=== PATIENT | female | born 1970 | race Caucasian/White ===

== ENCOUNTER 2018-03-14 18:55 | Observation (INO) | payer OTHER, SELFPAY ==
[2018-03-14 18:56] VITALS: BP 158/81; PULSE 87; RESP 18; TEMP 36.9; O2SAT 100; BMI 37.2
--- NOTE | 2018-03-14 19:27 | CT_ITS ---
STUDY: CT ABDOMEN AND PELVIS WITH CONTRAST REASON FOR EXAM: Female, 47 years old. Left upper quadrant pain. RADIATION DOSAGE (If Supplied By Facility): CTDIvol = ( 16.94 ) mGy, DLP = ( 1167.09 ) mGycm TECHNIQUE: Transaxial images were obtained from the dome of the diaphragm to the symphysis pubis with oral contrast. 100 ml of Isovue 300 contrast was administered. Sagittal and coronal images were reconstructed. Individualized dose optimization techniques were used for this CT. COMPARISON: None. FINDINGS: Mild bibasilar atelectatic versus chronic changes. Negative for major consolidation or pleural effusion. The visualized portions of the heart are within normal limits. Hepatomegaly versus Ar's lobe of the right liver. There are surgical clips in the gallbladder fossa consistent with a prior cholecystectomy. Nondistended common bile duct with out filling defect. Normal spleen. Normal pancreas. Normal bilateral adrenal glands. Normal right kidney. Normal left kidney. Food filled stomach. Normal small intestine. Diverticulosis of the colon without evidence of acute diverticulitis. The appendix is visualized and appears normal. Mild calcified plaque of the aorta. Normal inferior vena cava. Normal retroperitoneum. Normal urinary bladder. There is absence of the uterus consistent with a prior hysterectomy. Negative for pelvic mass or free fluid of the pelvis. Normal abdominal wall. Mild degenerative changes of the lumbar spine. CT/Abdomen/Pelvis WITH Contrast IMPRESSION: No acute abdominal or pelvic findings. Negative for evidence of bowel obstruction, bowel perforation or inflammatory bowel changes. Diverticulosis of the colon without evidence of acute diverticulitis. A normal appendix is identified. Normal kidneys bilaterally without hydronephrosis, renal or ureteral stones. Unremarkable urinary bladder. Status post hysterectomy with no pelvic mass or free fluid of the pelvis. Status post cholecystectomy with no dilatation of the bile ducts. Mild hepatomegaly primarily the right liver versus Ar's lobe, normal variation. Electronically Signed: Anusha Michelle MD at 21:40 EDT , Service support ,
[2018-03-14] MEDS: Morphine 4 MG/ML Syringe IV ×2 (19:36→22:07)
[2018-03-14] MEDS: 0.9% Normal Saline 1,000 ML 1000 ML IV (19:36)
[2018-03-14] MEDS: Ondansetron 4 MG/2 ML Vial IV (19:37)
[2018-03-14 19:38] LABS: Absolute Lymphocyte Count 4.36 X10^3/ul (0.83-4.51); Absolute Neutrophil Count 3.4 X10^3/uL (2.0-7.7); Basophil# 0.05 X10^3/uL; Basophil% 0.6 % (0-1); Eosinophil# 0.33 X10^3/uL; Eosinophils% 3.8 % (0-5); Hematocrit 41.2 % (37-47); Hemoglobin 14.5 g/dl (12.0-15.0); Lymphocyte # 4.36 X10^3/ul (4.0); Lymphocyte % 50.3 % (19-41); Mean Corp Hgb Conc 35.2 g/gl (32-36); Mean Corpuscular Hgb 32.1 pg (27.0-32.0); Mean Corpuscular Volume 91.2 fL (81-99); Mean Platelet Vol. 10.6 fl (6.2-12.0); Monocyte# 0.51 X10^3/uL; Monocyte% 5.9 % (0-10); Neutrophil % 39.2 % (47-70); Platelet Count 240 K/mm3 (150-450); RBC Distribution Width CV 12.9 % (11.6-14.6); RBC Distribution Width SD 42.5 fl (35.1-43.9); Red Blood Count 4.52 M/mm3 (4.2-5.4); White Blood Count 8.7 K/mm3 (4.4-11.0)
[2018-03-14 19:39] LABS: POSITIVE COUNT NO; POSITIVE DIFFERENTIAL NO; POSITIVE MORPHOLOGY NO
[2018-03-14 19:58] LABS: ALB/GLOB Ratio 0.9 RATIO (0.9-2.4); AST(SGOT) 16 U/L (15-37); Alanine Aminotransfer ALT/SGPT 32 U/L (13-56); Albumin, Serum 3.3 g/dL (3.2-5.0); Alkaline Phosphatase 110 U/L (45-117); Anion Gap 9 (5-15); BUN 13 mg/dL (7-18); BUN/Creat Ratio 18.1 RATIO (10-20); Calcium,Total 8.5 mg/dL (8.5-10.1); Chloride 103 mmol/L (98-107); Creatinine, Serum 0.72 mg/dL (0.55-1.02); EST Glomerular Filtration Rate 93 mL/min (>60); Est Glom Filt Rate - Afr Amer 112 mL/min (>60); Estimated Creatinine Clearance 80.76 ml/min; Globulin 3.8 g/dL (2.2-4.2); Glucose 284 mg/dL (74-106); Lipase 244 U/L (73-393); Potassium 3.8 mmol/L (3.5-5.1); Protein, Total 7.1 g/dL (6.4-8.2); Sodium Level 139 mmol/L (136-145)
[2018-03-14 21:00] LABS: Bacteria 0 SEEN /hpf (None Seen); Mucous, Urine 0 SEEN /hpf (<or=2+); Red Blood Cells-Urine 0 SEEN /hpf (0-5); White Blood Cells 0 SEEN /hpf (0-5)
[2018-03-14 21:03] LABS: Color, Urine Yellow (Yellow); Glucose, Dipstick 1000 mg/dl (Normal); Ketone-Dipstick Negative (Negative); Leukocyte Esterase-Dipstick Negative /ul (Negative); Nitrite-Dipstick Negative (Negative); Occult Blood-Urine Negative /ul (Negative); Protein-Dipstick Negative (Negative); Urine Bilirubin Dipstick Negative (Negative); Urine Clarity Clear (Clear); Urine Urobilinogen Normal (Normal)
[2018-03-14 21:12] LABS: Squamous Epithelial Cells - UA 0-5 SEEN /hpf (5-10)
--- NOTE | 2018-03-14 21:23 | ED.RN ---
notified MD of pt's pain. no new orders.
--- NOTE | 2018-03-14 22:01 | CT_ITS ---
STUDY: CTA CHEST REASON FOR EXAM: Female, 47 years old. Left upper quadrant/chest pain. RADIATION DOSAGE (If Supplied By Facility): CTDIvol = ( 14.62 ) mGy, DLP = ( 667.49 ) mGycm TECHNIQUE: The examination was performed with the intravenous administration of 100 ml of Isovue 370 contrast material. Post-processing of the angiographic images was performed, with multiplanar reformation and 3D reconstruction. Individualized dose optimization techniques were used for this CT. COMPARISON: None. FINDINGS: Normal enhancement of the main pulmonary artery and right and left pulmonary arteries. Normal enhancement of the bilateral peripheral pulmonary arteries. There is no demonstrated pulmonary embolism. Normal thoracic aorta and visualized great vessels. There is no demonstrated aortic dissection. Normal heart and pericardium. Negative for coronary calcifications. Shotty subcentimeter mediastinal and AP window lymph nodes. Shotty hilar lymph nodes. Patchy bibasilar small groundglass changes and increased multifocal linear/curvilinear interstitial opacities. Atelectatic changes in the costophrenic angle, left greater than right. Negative for substantial pleural effusion. Normal chest wall structures. There are degenerative changes of thoracic spine. Normal visualized upper abdomen. CT/CTA Chest W/WO Contrast IMPRESSION: NEGATIVE for pulmonary embolus. Negative for aortic aneurysm or dissection. Negative for coronary calcifications. Shotty subcentimeter mediastinal, AP window and hilar lymph nodes. Patchy bibasilar small groundglass changes with increased multifocal linear/curvilinear interstitial opacities, nonspecific. Atelectatic changes in the costophrenic angles, left greater than right. Negative for substantial pleural effusion. Electronically Signed: Anusha Michelle MD at 23:32 EDT , Service support ,
[2018-03-14 22:07] VITALS: BP 125/79; PULSE 71; RESP 18; O2SAT 98
[2018-03-14] MEDS: 0.9% Normal Saline 1,000 ML 999 ML IV (22:39)
[2018-03-15] MEDS: Ceftriaxone 1 GM/50 ML BAG IV (00:07)
--- NOTE | 2018-03-15 00:17 | PCM.HP.STD ---
Problem List (1) GERD (gastroesophageal reflux disease) Status: Chronic (2) Irritable bowel syndrome Status: Chronic (3) Fibromyalgia Status: Chronic (4) Type 2 diabetes mellitus Status: Chronic History of Present Illness Date of Admission: 03/15/18 Chief Complaint: Left lateral chest pain. The patient is a 47 year old F with past medical history as mentioned above presented to the emergency room because of left lateral chest pain. Her symptoms started around 2 weeks ago with left lateral chest pain, constant pain, dull aching pain when resting, started to come sharp pain on moving or taking a deep breath, 7 out of 10 in severity, goes around her back on the left side, aggravated by taking a deep breath or moving, somewhat relieved by staying still and without other significant associated symptoms. She reported chronic smoking cough without sputum production. She denies fever chills. She denies anterior chest pain, dizziness or lightheadedness. She denied shortness of breath but she cannot take a deep breath because of this pain. She denied mechanical fall or trauma. She denies skin rash or sick contacts. She had a history of shingles more than 10 years ago just above her left breast. In the emergency department, her vital signs were stable. Routine blood work was unremarkable except for glucose of 284. LFT and lipase were normal. Urinalysis showed no evidence of acute cystitis. CT scan abdomen and pelvis with contrast showed no significant acute intra-abdominal pathology, chronic findings reviewed. CTA chest showed no evidence of PE or dissection, revealed bilateral basilar small groundglass changes likely due to atelectasis, doubt pneumonia. She received a couple of doses of IV morphine in the ER without improvement and she received IV Rocephin and Zithromax for presumed pneumonia. She is being admitted for intractable left lateral pleuritic chest pain of uncertain etiology. Past Medical History Past Medical History (Chronic Problems): Chronic Problems GERD (gastroesophageal reflux disease) (Chronic) Irritable bowel syndrome (Chronic) Fibromyalgia (Chronic) Type 2 diabetes mellitus (Chronic) Allergies magnesium salicylate Allergy (Verified 03/14/18 18:58) Swelling Home Medications: Ambulatory Orders Medication Instructions Recorded NK [NK] 03/14/18 Surgical History: cholecystectomy, herniorrhaphy, hysterectomy, - - section, surgery for carpal tunnel syndrome. 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 Denies: Chills, Fever, Weakness Eyes: Denies: Blurred vision, Double vision, Drainage, Redness HEENT: Denies: Difficulty Hearing, Ear Pain, Eye Pain, Nasal Congestion, Sore Throat Cardiovascular: Reports: - - Left lateral chest pain.. Denies: Chest Pressure, Chest Tightness, Heaviness, Light Headedness, Orthopnea, Palpitations, Syncope Respiratory: Reports: Cough, Pleuritic Pain. Denies: Shortness of Breath, Sputum production, Wheezing Gastrointestinal: Denies: Abdominal Pain, Constipation, Diarrhea, Nausea, Vomiting Genitourinary: Denies: Dysuria, Frequency, Hematuria Musculoskeletal: Denies: Arm Pain, Back Pain, Foot Pain Skin: Denies: Dryness, Rash Neurological: Denies: Balance problems, Double vision, Change in Speech, Slurred speech, Confusion, Focal weakness, Headaches, Incoordination, Numbness Psychiatric: Denies: Anxiety, Depression Endocrine: Denies: Change in Body Habitus, Polydipsia VTE Information - Inpt Only VTE Present on Admission: No VTE Mechan Device Prophylaxis: None VTE Pharm Prophylaxis ordered?: No - Physical Exam General: Alert, Oriented x3, Cooperative, - - She is in moderate pain. HEENT: Atraumatic, PERRLA, EOMI, Normocephalic Oral: Moist Mucosa, No Gingival or Mucosal Lesions/ Ulcerations Neck: Supple, No JVD, Trachea Midline, Thyroid Normal Size and Texture Lungs: Clear to auscultation, No rhonchi, No wheeze, No rales Cardiovascular: Regular rate, Regular Rhythm, Normal S1, Normal S2, No murmurs, PMI Normal Abdomen: Bowel Sounds Present, Soft, Non Tender, Non-Distended, No Hepato-splenomegaly Extremities: No clubbing, No cyanosis, No edema Skin: No rashes, No breakdown, - - No skin rash her skin vesicles on left lateral chest. Musculoskeletal: - Neurological: Cranial nerves II-XII grossly intact, Motor Exam 5/5 strength throughout Psych/Mental Status: Normal Affect, Appropriate, Alert and oriented to time, place, person, mood and affect Vital Signs Temp Pulse Resp BP Pulse Ox 98.4 F 71 18 125/79 H 98 03/14/18 18:56 03/14/18 22:07 03/14/18 22:07 03/14/18 22:07 03/14/18 22:07 Oxygen Delivery Method Room Air Weight: 210 lb Body Mass Index (BMI) 37.2 Laboratory Tests Past 24 Hrs 03/14/18 03/14/18 03/14/18 19:30 19:30 20:50 WBC 8.7 RBC 4.52 Hgb 14.5 Hct 41.2 MCV 91.2 MCH 32.1 H MCHC 35.2 RDW 12.9 RDW Differential 42.5 Plt Count 240 MPV 10.6 Immature Gran % (Auto) 0.200 Neut % (Auto) 39.2 L Lymph % (Auto) 50.3 H [place] % (Auto) 5.9 Eos % (Auto) 3.8 Baso % (Auto) 0.6 Absolute Neuts (auto) 3.4 Absolute Lymphs (auto) 4.36 Total Counted Not Reportable Sodium 139 Potassium 3.8 Chloride 103 Carbon Dioxide 27.0 Anion Gap 9 BUN 13 Creatinine 0.72 Estim Creat Clear Calc 80.76 Est GFR (MDRD) Af Amer 112 Est GFR (MDRD) Non-Af 93 BUN/Creatinine Ratio 18.1 Glucose 284 H Calcium 8.5 Total Bilirubin 0.20 AST 16 ALT 32 Alkaline Phosphatase 110 Total Protein 7.1 Albumin 3.3 Globulin 3.8 Albumin/Globulin Ratio 0.9 Lipase 244 Urine Color Yellow Urine Clarity Clear Urine pH 7.0 Ur Specific [place] 1.010 Urine Protein Negative Urine Glucose (UA) 1000 H Urine Ketones Negative Urine Occult Blood Negative Urine Nitrite Negative Urine Bilirubin Negative Urine Urobilinogen Normal Ur Leukocyte Esterase Negative Urine RBC 0 SEEN Urine WBC 0 SEEN Ur Squamous Epith Cells 0-5 SEEN Urine Bacteria 0 SEEN Urine Mucus 0 SEEN Clinical Impression(s) from Imaging Studies Abdomen/Pelvis CT 03/14/18 19:27 IMPRESSION: No acute abdominal or pelvic findings. Negative for evidence of bowel obstruction, bowel perforation or inflammatory bowel changes. Diverticulosis of the colon without evidence of acute diverticulitis. A normal appendix is identified. Normal kidneys bilaterally without hydronephrosis, renal or ureteral stones. Unremarkable urinary bladder. Status post hysterectomy with no pelvic mass or free fluid of the pelvis. Status post cholecystectomy with no dilatation of the bile ducts. Mild hepatomegaly primarily the right liver versus Ar's lobe, normal variation. Electronically Signed: Anusha Michelle MD at 21:40 EDT , Service support , Chest CTA 03/14/18 22:01 IMPRESSION: NEGATIVE for pulmonary embolus. Negative for aortic aneurysm or dissection. Negative for coronary calcifications. Shotty subcentimeter mediastinal, AP window and hilar lymph nodes. Patchy bibasilar small groundglass changes with increased multifocal linear/curvilinear interstitial opacities, nonspecific. Atelectatic changes in the costophrenic angles, left greater than right. Negative for substantial pleural effusion. Electronically Signed: Anusha Michelle MD at 23:32 EDT , Service support , Assessment/Plan This is a 47-year-old female patient presented to the medicine because of left lateral pleuritic chest pain of 2 weeks duration of unclear etiology and she is being admitted for evaluation. #1 left lateral pleuritic chest pain: Unclear etiology. EKG revealed normal sinus rhythm without evidence of ischemic changes or cardiac arrhythmias. CTA chest and CT abdomen and pelvis reviewed as above. At this time, I doubt pneumonia. Routine blood work including LFT and lipase were unremarkable. She did have history of shingles above her left breast more than 10 years ago. At this time, she has no skin rash, no vesicles. Plan: Admit to [facility] for observation, IV fluids, IV Toradol, IV hydromorphone as needed, IV antiemetics, Tylenol as needed, repeat CBC, CMP and lipase tomorrow morning. #2 type 2 diabetes mellitus: She is not taking any medicine at home, trying diet controlled. Blood sugars 284. Plan: ADA diet, Accu-Cheks before meals at bedtime, sliding scale, hemoglobin A1c. #3 GERD/[place]'s esophagus: Start Pepcid IV twice daily. #4 fibromyalgia: Tylenol as needed, IV Toradol as above. #5 irritable bowel syndrome: Stable, no symptoms. #6 DVT prophylaxis: Low risk patient, no prophylaxis indicated, ambulate. This note was generated with [employer] software. It may contain incorrect words, spelling, and punctuation that were not noted in checking the note before signing. Code Visit OBSV E&M: 29746 Initial observation care L3
--- NOTE | 2018-03-15 00:21 | HP.PCM_ITS ---
Problem List (1) GERD (gastroesophageal reflux disease) Status: Chronic (2) Irritable bowel syndrome Status: Chronic (3) Fibromyalgia Status: Chronic (4) Type 2 diabetes mellitus Status: Chronic History of Present Illness Date of Admission: 03/15/18 Chief Complaint: Left lateral chest pain. The patient is a 47 year old F with past medical history as mentioned above presented to the emergency room because of left lateral chest pain. Her symptoms started around 2 weeks ago with left lateral chest pain, constant pain , dull aching pain when resting, started to come sharp pain on moving or taking a deep breath, 7 out of 10 in severity, goes around her back on the left side, aggravated by taking a deep breath or moving, somewhat relieved by staying still and without other significant associated symptoms. She reported chronic smoking cough without sputum production. She denies fever chills. She denies anterior chest pain, dizziness or lightheadedness. She denied shortness of breath but she cannot take a deep breath because of this pain. She denied mechanical fall or trauma. She denies skin rash or sick contacts. She had a history of shingles more than 10 years ago just above her left breast. In the emergency department, her vital signs were stable. Routine blood work was unremarkable except for glucose of 284. LFT and lipase were normal. Urinalysis showed no evidence of acute cystitis. CT scan abdomen and pelvis with contrast showed no significant acute intra-abdominal pathology, chronic findings reviewed. CTA chest showed no evidence of PE or dissection, revealed bilateral basilar small groundglass changes likely due to atelectasis, doubt pneumonia. She received a couple of doses of IV morphine in the ER without improvement and she received IV Rocephin and Zithromax for presumed pneumonia. She is being admitted for intractable left lateral pleuritic chest pain of uncertain etiology. Past Medical History Past Medical History (Chronic Problems): Chronic Problems GERD (gastroesophageal reflux disease) (Chronic) Irritable bowel syndrome (Chronic) Fibromyalgia (Chronic) Type 2 diabetes mellitus (Chronic) Allergies magnesium salicylate Allergy (Verified 03/14/18 18:58) Swelling Home Medications: Ambulatory Orders Medication Instructions Recorded NK [NK] 03/14/18 Surgical History: cholecystectomy, herniorrhaphy, hysterectomy, - - section, surgery for carpal tunnel syndrome. 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 Denies: Chills, Fever, Weakness Eyes: Denies: Blurred vision, Double vision, Drainage, Redness HEENT: Denies: Difficulty Hearing, Ear Pain, Eye Pain, Nasal Congestion, Sore Throat Cardiovascular: Reports: - - Left lateral chest pain.. Denies: Chest Pressure, Chest Tightness, Heaviness, Light Headedness, Orthopnea, Palpitations, Syncope Respiratory: Reports: Cough, Pleuritic Pain. Denies: Shortness of Breath, Sputum production, Wheezing Gastrointestinal: Denies: Abdominal Pain, Constipation, Diarrhea, Nausea, Vomiting Genitourinary: Denies: Dysuria, Frequency, Hematuria Musculoskeletal: Denies: Arm Pain, Back Pain, Foot Pain Skin: Denies: Dryness, Rash Neurological: Denies: Balance problems, Double vision, Change in Speech, Slurred speech, Confusion, Focal weakness, Headaches, Incoordination, Numbness Psychiatric: Denies: Anxiety, Depression Endocrine: Denies: Change in Body Habitus, Polydipsia VTE Information - Inpt Only VTE Present on Admission: No VTE Mechan Device Prophylaxis: None VTE Pharm Prophylaxis ordered?: No - Physical Exam General: Alert, Oriented x3, Cooperative, - - She is in moderate pain. HEENT: Atraumatic, PERRLA, EOMI, Normocephalic Oral: Moist Mucosa, No Gingival or Mucosal Lesions/ Ulcerations Neck: Supple, No JVD, Trachea Midline, Thyroid Normal Size and Texture Lungs: Clear to auscultation, No rhonchi, No wheeze, No rales Cardiovascular: Regular rate, Regular Rhythm, Normal S1, Normal S2, No murmurs, PMI Normal Abdomen: Bowel Sounds Present, Soft, Non Tender, Non-Distended, No Hepato- splenomegaly Extremities: No clubbing, No cyanosis, No edema Skin: No rashes, No breakdown, - - No skin rash her skin vesicles on left lateral chest. Musculoskeletal: - Neurological: Cranial nerves II-XII grossly intact, Motor Exam 5/5 strength throughout Psych/Mental Status: Normal Affect, Appropriate, Alert and oriented to time, place, person, mood and affect Vital Signs Temp Pulse Resp BP Pulse Ox 98.4 F 71 18 125/79 H 98 03/14/18 18:56 03/14/18 22:07 03/14/18 22:07 03/14/18 22:07 03/14/18 22:07 Oxygen Delivery Method Room Air Weight: 210 lb Body Mass Index (BMI) 37.2 Laboratory Tests Past 24 Hrs 03/14/18 03/14/18 03/14/18 19:30 19:30 20:50 WBC 8.7 RBC 4.52 Hgb 14.5 Hct 41.2 MCV 91.2 MCH 32.1 H MCHC 35.2 RDW 12.9 RDW Differential 42.5 Plt Count 240 MPV 10.6 Immature Gran % (Auto) 0.200 Neut % (Auto) 39.2 L Lymph % (Auto) 50.3 H [place] % (Auto) 5.9 Eos % (Auto) 3.8 Baso % (Auto) 0.6 Absolute Neuts (auto) 3.4 Absolute Lymphs (auto) 4.36 Total Counted Not Reportable Sodium 139 Potassium 3.8 Chloride 103 Carbon Dioxide 27.0 Anion Gap 9 BUN 13 Creatinine 0.72 Estim Creat Clear Calc 80.76 Est GFR (MDRD) Af Amer 112 Est GFR (MDRD) Non-Af 93 BUN/Creatinine Ratio 18.1 Glucose 284 H Calcium 8.5 Total Bilirubin 0.20 AST 16 ALT 32 Alkaline Phosphatase 110 Total Protein 7.1 Albumin 3.3 Globulin 3.8 Albumin/Globulin Ratio 0.9 Lipase 244 Urine Color Yellow Urine Clarity Clear Urine pH 7.0 Ur Specific [place] 1.010 Urine Protein Negative Urine Glucose (UA) 1000 H Urine Ketones Negative Urine Occult Blood Negative Urine Nitrite Negative Urine Bilirubin Negative Urine Urobilinogen Normal Ur Leukocyte Esterase Negative Urine RBC 0 SEEN Urine WBC 0 SEEN Ur Squamous Epith Cells 0-5 SEEN Urine Bacteria 0 SEEN Urine Mucus 0 SEEN Clinical Impression(s) from Imaging Studies Abdomen/Pelvis CT 03/14/18 19:27 IMPRESSION: No acute abdominal or pelvic findings. Negative for evidence of bowel obstruction, bowel perforation or inflammatory bowel changes. Diverticulosis of the colon without evidence of acute diverticulitis. A normal appendix is identified. Normal kidneys bilaterally without hydronephrosis, renal or ureteral stones. Unremarkable urinary bladder. Status post hysterectomy with no pelvic mass or free fluid of the pelvis. Status post cholecystectomy with no dilatation of the bile ducts. Mild hepatomegaly primarily the right liver versus Ar's lobe, normal variation. Electronically Signed: Anusha Michelle MD at 21:40 EDT , Service support , Chest CTA 03/14/18 22:01 IMPRESSION: NEGATIVE for pulmonary embolus. Negative for aortic aneurysm or dissection. Negative for coronary calcifications. Shotty subcentimeter mediastinal, AP window and hilar lymph nodes. Patchy bibasilar small groundglass changes with increased multifocal linear/curvilinear interstitial opacities, nonspecific. Atelectatic changes in the costophrenic angles, left greater than right. Negative for substantial pleural effusion. Electronically Signed: Anusha Michelle MD at 23:32 EDT , Service support , Assessment/Plan This is a 47-year-old female patient presented to the medicine because of left lateral pleuritic chest pain of 2 weeks duration of unclear etiology and she is being admitted for evaluation. #1 left lateral pleuritic chest pain: Unclear etiology. EKG revealed normal sinus rhythm without evidence of ischemic changes or cardiac arrhythmias. CTA chest and CT abdomen and pelvis reviewed as above. At this time, I doubt pneumonia. Routine blood work including LFT and lipase were unremarkable. She did have history of shingles above her left breast more than 10 years ago. At this time, she has no skin rash, no vesicles. Plan: Admit to [facility] for observation, IV fluids, IV Toradol, IV hydromorphone as needed, IV antiemetics, Tylenol as needed, repeat CBC, CMP and lipase tomorrow morning. #2 type 2 diabetes mellitus: She is not taking any medicine at home, trying diet controlled. Blood sugars 284. Plan: ADA diet, Accu-Cheks before meals at bedtime, sliding scale, hemoglobin A1c. #3 GERD/[place]'s esophagus: Start Pepcid IV twice daily. #4 fibromyalgia: Tylenol as needed, IV Toradol as above. #5 irritable bowel syndrome: Stable, no symptoms. #6 DVT prophylaxis: Low risk patient, no prophylaxis indicated, ambulate. This note was generated with [employer] software. It may contain incorrect words, spelling, and punctuation that were not noted in checking the note before signing. Code Visit OBSV E&M: 79047 Initial observation care L3
--- NOTE | 2018-03-15 00:39 | ED.VISSUMM ---
- ER Visit Summary Date of Service: 03/15/18 Chief Complaint: Abdominal pain History of Present Illness: The patient is a 47 F who presents with left upper quadrant abdominal pain. This is been intermittent for the last 2 weeks. She describes as dull. However today it became more severe more constant. It is worse with palpation or deep inspiration or movement does radiate through to the back. No recent travel surgery or history of DVT or pulmonary embolism. She denies fevers vomiting diarrhea chest pain or shortness of breath. Physical Examination: Afebrile vitals are unremarkable Patient in no apparent distress Heart regular rate and rhythm Lungs clear Abdomen soft nondistended she has diffuse abdominal tenderness but is greatest in the left upper quadrant Test Results: CBC CMP lipase unremarkable. Urinalysis shows glucose otherwise normal. CT of the abdomen and pelvis shows no acute findings. CT of the chest shows shoddy mediastinal AP window and hilar lymphadenopathy as well as patchy bibasilar groundglass changes interstitial opacities and atelectatic changes. Emergency Department Course and Treatment: Given patient's reproducible abdominal pain initially felt this was likely due to an abdominal pathology. However she continued to complain of severe pain despite multiple doses of morphine with an unremarkable CT the abdomen cell consideration was given to lower lung pathology and a CTA of the chest was obtained which showed the findings above. Patient was treated for possible atypical pneumonia with IV Rocephin and azithromycin. Due to intractable pain she was discussed with the hospitalist and admitted. Treatment Plan: [] Disposition: Admit Impression: Intractable left upper quadrant pain Abnormal chest CT This note was generated with [employer] dictation software. It may contain incorrect words, spelling, and punctuation that were not noted in review of the chart prior to signing ED Disposition - Plan for ED Patient: Chief Complaint: Abd Pain
--- NOTE | 2018-03-15 00:42 | EKG12_ITS ---
Test Reason : ABD PAIN Blood Pressure : / mmHG Vent. Rate : 075 BPM Atrial Rate : 075 BPM P-R Int : 156 ms QRS Dur : 090 ms QT Int : 416 ms P-R-T Axes : 054 017 043 degrees QTc Int : 464 ms Normal sinus rhythm Normal ECG Confirmed by FREYA MIN, SIVA ([id number]), editor school photograph RENE HOLM ([id number]) on 03/20/2018 2:53:39 PM Referred By: ELOY Confirmed By:SIVA PILLAI MD
[2018-03-15 01:13] VITALS: BMI 38.5
[2018-03-15] MEDS: 0.9% Normal Saline 1,000 ML 75 ML IV (01:40)
[2018-03-15] MEDS: HYDROmorphone 0.5 MG/0.5 ML SYRINGE IV ×4 (01:41→13:33)
[2018-03-15 01:45] VITALS: BP 132/75; PULSE 81; RESP 16; TEMP 36.5; O2SAT 100
[2018-03-15 01:46] VITALS: O2SAT 100
[2018-03-15 02:21] LABS: Hemoglobin A1c 9.6 % (4.2-6.3)
[2018-03-15] MEDS: 0.9% NaCl Peripheral Flush Adult/Peds IV ×3 (03:10→06:38)
[2018-03-15 04:49] VITALS: BP 107/62; PULSE 72; RESP 18; TEMP 36.4; O2SAT 99
[2018-03-15 05:58] LABS: Absolute Lymphocyte Count 4.31 X10^3/ul (0.83-4.51); Basophil# 0.05 X10^3/uL; Basophil% 0.5 % (0-1); Eosinophil# 0.33 X10^3/uL; Eosinophils% 3.5 % (0-5); Hemoglobin 13.6 g/dl (12.0-15.0); Lymphocyte # 4.31 X10^3/ul (4.0); Lymphocyte % 46.3 % (19-41); Mean Corpuscular Hgb 31.9 pg (27.0-32.0); Mean Corpuscular Volume 93.7 fL (81-99); Mean Platelet Vol. 10.9 fl (6.2-12.0); Monocyte# 0.58 X10^3/uL; Monocyte% 6.2 % (0-10); Neutrophil # 4.01 X10^3/uL (2.7-7.7); Neutrophil % 43.2 % (47-70); Platelet Count 206 K/mm3 (150-450); RBC Distribution Width SD 43.1 fl (35.1-43.9); Red Blood Count 4.27 M/mm3 (4.2-5.4); White Blood Count 9.3 K/mm3 (4.4-11.0)
[2018-03-15 06:03] LABS: POSITIVE COUNT NO; POSITIVE DIFFERENTIAL NO; POSITIVE MORPHOLOGY NO
[2018-03-15] MEDS: Ketorolac 30 MG/ML Syringe IV (06:38)
[2018-03-15] MEDS: Insulin Lispro 100 UNIT/ML INSULN.PEN SC ×2 (06:38→11:49)
[2018-03-15] MEDS: Ondansetron 4 MG/2 ML Vial IV (06:38)
[2018-03-15 06:40] VITALS: O2SAT 94
--- NOTE | 2018-03-15 06:43 | NURSING ---
Patient nauseated. Zofran given. Advised to order very light breakfast or to have jello/broth or crackers on floor.
[2018-03-15 06:47] LABS: ALB/GLOB Ratio 0.9 RATIO (0.9-2.4); AST(SGOT) 17 U/L (15-37); Alanine Aminotransfer ALT/SGPT 28 U/L (13-56); Albumin, Serum 2.9 g/dL (3.2-5.0); Alkaline Phosphatase 96 U/L (45-117); Anion Gap 10 (5-15); BUN 12 mg/dL (7-18); BUN/Creat Ratio 19.2 RATIO (10-20); Calcium,Total 8.1 mg/dL (8.5-10.1); Chloride 110 mmol/L (98-107); Creatinine, Serum 0.62 mg/dL (0.55-1.02); EST Glomerular Filtration Rate 109 mL/min (>60); Est Glom Filt Rate - Afr Amer 132 mL/min (>60); Estimated Creatinine Clearance 93.79 ml/min; Globulin 3.4 g/dL (2.2-4.2); Glucose 216 mg/dL (74-106); Lipase 143 U/L (73-393); Protein, Total 6.3 g/dL (6.4-8.2); Sodium Level 142 mmol/L (136-145); Total Bilirubin < 0.10 mg/dL (0.20-1.00)
[2018-03-15 06:50] LABS: Bedside Glucose 185 mg/dL (70-110)
[2018-03-15 09:43] VITALS: BP 115/71; PULSE 64; RESP 16; TEMP 36.6; O2SAT 99
--- NOTE | 2018-03-15 10:19 | PCM.PN.HOSP ---
Subjective: Patient is a 47-year-old female with past medical history of GERD, irritable bowel syndrome, fibromyalgia type 2 diabetes mellitus. She was admitted with the complaint of left-sided chest pain for about 2 weeks duration. Pain was constant, dull and aching, pleuritic in nature, initially 7 out of 10 which she said radiated to her back. Relieved by laying still with no other aggravating or relieving factors. She has a history of chronic cough due to smoking. She denied any nausea vomiting or diaphoresis. She has a history of shingles more than 10 years ago which occurred just above her left breast. In the ED CT abdomen and pelvis with contrast showed no acute intra-abdominal pathology and CT of the chest showed no evidence of PE or dissection and only revealed bilateral basilar small groundglass changes likely due to atelectasis and less likely pneumonia. She received IV Rocephin and azithromycin in the ED for presumed pneumonia. She was admitted for intractable left-sided pleuritic chest pain of unknown etiology. Patient seen and examined today. Pain is still present though is much better now. She denies any fever or chills, any shortness of breath, any abdominal pain, diarrhea vomiting. Review of systems otherwise negative. On closer questioning, had distribution of the pain did not make it seemed like it was dermatomal in nature as it was located just beneath the left breast and she said went straight to her back. Review of systems otherwise negative. Vitals/I&O's: Vital Signs Temp Pulse Resp BP Pulse Ox 97.8 F 64 16 115/71 99 03/15/18 09:43 03/15/18 09:43 03/15/18 09:43 03/15/18 09:43 03/15/18 09:43 Oxygen Delivery Method Room Air Weight: 217 lb 9.54 oz Body Mass Index (BMI) 38.5 Intake and Output for Last 24 Hours 03/13/18 03/14/18 03/15/18 23:59 23:59 23:59 Intake Total 1094 / 1094 Output Total 1700 / 1700 Balance -606 / -606 General: Alert, Oriented x3, Cooperative, No apparent distress HEENT: Atraumatic, PERRLA, EOMI, Normocephalic Oral: Moist Mucosa Neck: Supple, No JVD, Negative Carotid Bruits Lungs: Clear to auscultation, Normal air movement, No rhonchi, No wheeze, No rales Cardiovascular: Regular rate, Regular Rhythm, Normal S1, Normal S2, No murmurs Abdomen: Bowel Sounds Present, Soft, Non Tender, Non-Distended, No Hepato-splenomegaly Extremities: No clubbing, No cyanosis, No edema, Capillary Refill Less than 3 Seconds Skin: No rashes, No breakdown Musculoskeletal: No Tenderness to Palpation of Joints or Extremities Lymphatic: No Cervical, Supraclavicular, or Inguinal Adenopathy Neurological: Cranial nerves II-XII grossly intact Psych/Mental Status: Normal Affect, Appropriate, Alert and oriented to time, place, person, mood and affect Laboratory Results 03/15/18 05:20: WBC 9.3, RBC 4.27, Hgb 13.6, Hct 40.0, MCV 93.7, MCH 31.9, MCHC 34.0, RDW 13.0, RDW Differential 43.1, Plt Count 206, MPV 10.9, Immature Gran % (Auto) 0.300, Neut % (Auto) 43.2 L, Lymph % (Auto) 46.3 H, [place] % (Auto) 6.2, Eos % (Auto) 3.5, Baso % (Auto) 0.5, Absolute Neuts (auto) 4.0, Absolute Lymphs (auto) 4.31, Total Counted Not Reportable 03/15/18 05:20: Sodium 142, Potassium 4.0, Chloride 110 H, Carbon Dioxide 22.0, Anion Gap 10, BUN 12, Creatinine 0.62, Estim Creat Clear Calc 93.79, Est GFR (MDRD) Af Amer 132, Est GFR (MDRD) Non-Af 109, BUN/Creatinine Ratio 19.2, Glucose 216 H, Calcium 8.1 L, Total Bilirubin < 0.10 L, AST 17, ALT 28, Alkaline Phosphatase 96, Total Protein 6.3 L, Albumin 2.9 L, Globulin 3.4, Albumin/Globulin Ratio 0.9, Lipase 143 03/15/18 06:35: POC Glucose 185 H Current Medications Acetaminophen (Tylenol) 650 mg PO Q6H PRN PRN PRN Reason: Fever, headache, pain Hydromorphone HCl (Dilaudid Inj) 0.5 - 1 mg IV Q3H PRN PRN PRN Reason: SEVERE PAIN (6-1010) Last Admin: 03/15/18 09:47 Dose: 0.5 mg Sodium Chloride () 1,000 mls @ 75 mls/hr IV .[id number] [facility] Last Admin: 03/15/18 01:40 Dose: 75 mls/hr Famotidine 20 mg/ Sodium (Chloride) 10 mls @ 300 mls/hr IV Q12 [facility] Last Admin: 03/15/18 09:47 Dose: 300 mls/hr Insulin Human Lispro (Humalog Kwikpen (Bkc)) 0 unit SC ACHS [facility] PRN Reason: Protocol Last Admin: 03/15/18 06:38 Dose: 1 u Ketorolac Tromethamine (Toradol) 30 mg IV Q8 [facility] Stop: 03/20/18 06:01 Last Admin: 03/15/18 06:38 Dose: 30 mg Magnesium Hydroxide (Milk Of Magnesia) 30 ml PO DAILY PRN PRN PRN Reason: Constipation Ondansetron HCl (Zofran) 4 mg IV Q6H PRN PRN PRN Reason: NAUSEA/VOMITING Last Admin: 03/15/18 06:38 Dose: 4 mg Sodium Chloride () 5 - 30 ml IV UD PRN PRN Reason: SALINE FLUSH Last Admin: 03/15/18 06:38 Dose: 10 ml Medical Necessity - Tobacco Use Smoking Status: Current every day smoker Tobacco Use: Cigarettes Assessment/Plan 7-year-old female admitted with a pleuritic chest pain of unclear etiology 1. Chest pain of unclear etiology EKG showed NSR with no acute ST changes CT abdomen/pelvis and CT chest were also negative still has chest pain, especially with breathing in and out rash is not dermatomal in nature will check troponin due to her risk of cardiac disease with the type 2 DM; if negative, will dc home on IV toradol and hydromorphone as needed. labs were otherwise unremarkable 2. DM2 poorly controlled. A1C is 9.6 accuchecks ACHS; ISS currently not on medication, says she is trying to control it at home with diet. will start metformin 500mg bid. to follow up with PCP on outpatient basis for monitoring 3. GERD/Mitchell esophagus says she had an EGD earlier this year which was showed the GERD on IV pepcid bid drinks diluted apple cider vinegar at home; counselled cut back on it due to acidity 4. IBS: stable. 5. Fibromyalgia: tyelenol prn 6. DVT prophylaxis: SCDs Code Visit OBSV E&M: 24516 Subsequent observation care L2
--- NOTE | 2018-03-15 10:25 | PN_ITS ---
Subjective: Patient is a 47-year-old female with past medical history of GERD, irritable bowel syndrome, fibromyalgia type 2 diabetes mellitus. She was admitted with the complaint of left-sided chest pain for about 2 weeks duration. Pain was constant, dull and aching, pleuritic in nature, initially 7 out of 10 which she said radiated to her back. Relieved by laying still with no other aggravating or relieving factors. She has a history of chronic cough due to smoking. She denied any nausea vomiting or diaphoresis. She has a history of shingles more than 10 years ago which occurred just above her left breast. In the ED CT abdomen and pelvis with contrast showed no acute intra-abdominal pathology and CT of the chest showed no evidence of PE or dissection and only revealed bilateral basilar small groundglass changes likely due to atelectasis and less likely pneumonia. She received IV Rocephin and azithromycin in the ED for presumed pneumonia. She was admitted for intractable left-sided pleuritic chest pain of unknown etiology. Patient seen and examined today. Pain is still present though is much better now. She denies any fever or chills, any shortness of breath, any abdominal pain, diarrhea vomiting. Review of systems otherwise negative. On closer questioning, had distribution of the pain did not make it seemed like it was dermatomal in nature as it was located just beneath the left breast and she said went straight to her back. Review of systems otherwise negative. Vitals/I&O's: Vital Signs Temp Pulse Resp BP Pulse Ox 97.8 F 64 16 115/71 99 03/15/18 09:43 03/15/18 09:43 03/15/18 09:43 03/15/18 09:43 03/15/18 09:43 Oxygen Delivery Method Room Air Weight: 217 lb 9.54 oz Body Mass Index (BMI) 38.5 Intake and Output for Last 24 Hours 03/13/18 03/14/18 03/15/18 23:59 23:59 23:59 Intake Total 1094 / 1094 Output Total 1700 / 1700 Balance -606 / -606 General: Alert, Oriented x3, Cooperative, No apparent distress HEENT: Atraumatic, PERRLA, EOMI, Normocephalic Oral: Moist Mucosa Neck: Supple, No JVD, Negative Carotid Bruits Lungs: Clear to auscultation, Normal air movement, No rhonchi, No wheeze, No rales Cardiovascular: Regular rate, Regular Rhythm, Normal S1, Normal S2, No murmurs Abdomen: Bowel Sounds Present, Soft, Non Tender, Non-Distended, No Hepato- splenomegaly Extremities: No clubbing, No cyanosis, No edema, Capillary Refill Less than 3 Seconds Skin: No rashes, No breakdown Musculoskeletal: No Tenderness to Palpation of Joints or Extremities Lymphatic: No Cervical, Supraclavicular, or Inguinal Adenopathy Neurological: Cranial nerves II-XII grossly intact Psych/Mental Status: Normal Affect, Appropriate, Alert and oriented to time, place, person, mood and affect Laboratory Results 03/15/18 05:20: WBC 9.3, RBC 4.27, Hgb 13.6, Hct 40.0, MCV 93.7, MCH 31.9, MCHC 34.0, RDW 13.0, RDW Differential 43.1, Plt Count 206, MPV 10.9, Immature Gran % (Auto) 0.300, Neut % (Auto) 43.2 L, Lymph % (Auto) 46.3 H, [place] % (Auto) 6.2, Eos % (Auto) 3.5, Baso % (Auto) 0.5, Absolute Neuts (auto) 4.0, Absolute Lymphs (auto) 4.31, Total Counted Not Reportable 03/15/18 05:20: Sodium 142, Potassium 4.0, Chloride 110 H, Carbon Dioxide 22.0, Anion Gap 10, BUN 12, Creatinine 0.62, Estim Creat Clear Calc 93.79, Est GFR ( MDRD) Af Amer 132, Est GFR (MDRD) Non-Af 109, BUN/Creatinine Ratio 19.2, Glucose 216 H, Calcium 8.1 L, Total Bilirubin < 0.10 L, AST 17, ALT 28, Alkaline Phosphatase 96, Total Protein 6.3 L, Albumin 2.9 L, Globulin 3.4, Albumin/Globulin Ratio 0.9, Lipase 143 03/15/18 06:35: POC Glucose 185 H Current Medications Acetaminophen (Tylenol) 650 mg PO Q6H PRN PRN PRN Reason: Fever, headache, pain Hydromorphone HCl (Dilaudid Inj) 0.5 - 1 mg IV Q3H PRN PRN PRN Reason: SEVERE PAIN (6-10) Last Admin: 03/15/18 09:47 Dose: 0.5 mg Sodium Chloride () 1,000 mls @ 75 mls/hr IV .[id number] [facility] Last Admin: 03/15/18 01:40 Dose: 75 mls/hr Famotidine 20 mg/ Sodium (Chloride) 10 mls @ 300 mls/hr IV Q12 [facility] Last Admin: 03/15/18 09:47 Dose: 300 mls/hr Insulin Human Lispro (Humalog Kwikpen (Bkc)) 0 unit SC ACHS [facility] PRN Reason: Protocol Last Admin: 03/15/18 06:38 Dose: 1 u Ketorolac Tromethamine (Toradol) 30 mg IV Q8 [facility] Stop: 03/20/18 06:01 Last Admin: 03/15/18 06:38 Dose: 30 mg Magnesium Hydroxide (Milk Of Magnesia) 30 ml PO DAILY PRN PRN PRN Reason: Constipation Ondansetron HCl (Zofran) 4 mg IV Q6H PRN PRN PRN Reason: NAUSEA/VOMITING Last Admin: 03/15/18 06:38 Dose: 4 mg Sodium Chloride () 5 - 30 ml IV UD PRN PRN Reason: SALINE FLUSH Last Admin: 03/15/18 06:38 Dose: 10 ml Medical Necessity - Tobacco Use Smoking Status: Current every day smoker Tobacco Use: Cigarettes Assessment/Plan 7-year-old female admitted with a pleuritic chest pain of unclear etiology 1. Chest pain of unclear etiology * EKG showed NSR with no acute ST changes * CT abdomen/pelvis and CT chest were also negative * still has chest pain, especially with breathing in and out * rash is not dermatomal in nature * will check troponin due to her risk of cardiac disease with the type 2 DM; if negative, will dc home * on IV toradol and hydromorphone as needed. * labs were otherwise unremarkable * 2. DM2 * poorly controlled. A1C is 9.6 * accuchecks ACHS; ISS * currently not on medication, says she is trying to control it at home with diet. * will start metformin 500mg bid. to follow up with PCP on outpatient basis for monitoring * 3. GERD/Mitchell esophagus * says she had an EGD earlier this year which was showed the GERD * on IV pepcid bid * drinks diluted apple cider vinegar at home; counselled cut back on it due to acidity * 4. IBS: stable. 5. Fibromyalgia: tyelenol prn 6. DVT prophylaxis: SCDs Code Visit OBSV E&M: 47754 Subsequent observation care L2
[2018-03-15 11:56] LABS: Bedside Glucose 262 mg/dL (70-110)
--- NOTE | 2018-03-15 14:02 | PCM.DC ---
- Discharge Diagnoses Current Active Problems: Current Active and Chronic Problems GERD (gastroesophageal reflux disease) (Chronic) Irritable bowel syndrome (Chronic) Fibromyalgia (Chronic) Type 2 diabetes mellitus (Chronic) You will use the following diet at home:: Calorie/Carbohydrate Controlled (specify 1200, 1400, etc) Your food should be the consistency of: Regular Discharge Activity: Return to Normal Activity Weight Bearing Status: Weight bearing as tolerated Call your doctor if you observe: Chest pain Additional Instructions: Please follow up with your primary care doctor in one week Allergies/Adverse Reactions: Allergies magnesium salicylate Allergy (Verified 03/14/18 18:58) Swelling Medications to take at Discharge Metformin HCl [Glucophage] 500 mg PO BIDCM #60 tab 03/15/18 The following prescriptions were given: Metformin HCl [Glucophage] 500 mg PO BIDCM #60 tab Primary Care Physician: Care Physician,No Primary [Primary Care Provider] - Test Results: Test results from this visit will be discussed in further detail at your follow-up appointment, if applicable. Proposed Discharge Date: 03/15/18
--- NOTE | 2018-03-15 14:05 | DCINST_ITS ---
- Discharge Diagnoses Current Active Problems: Current Active and Chronic Problems GERD (gastroesophageal reflux disease) (Chronic) Irritable bowel syndrome (Chronic) Fibromyalgia (Chronic) Type 2 diabetes mellitus (Chronic) You will use the following diet at home:: Calorie/Carbohydrate Controlled ( specify 1200, 1400, etc) Your food should be the consistency of: Regular Discharge Activity: Return to Normal Activity Weight Bearing Status: Weight bearing as tolerated Call your doctor if you observe: Chest pain Additional Instructions: Please follow up with your primary care doctor in one week Allergies/Adverse Reactions: Allergies magnesium salicylate Allergy (Verified 03/14/18 18:58) Swelling Medications to take at Discharge Metformin HCl [Glucophage] 500 mg PO BIDCM #60 tab 03/15/18 The following prescriptions were given: Metformin HCl [Glucophage] 500 mg PO BIDCM #60 tab Primary Care Physician: Care Physician,No Primary [Primary Care Provider] - Test Results: Test results from this visit will be discussed in further detail at your follow- up appointment, if applicable. Proposed Discharge Date: 03/15/18
--- NOTE | 2018-03-15 14:05 | PCM.DC.SUM ---
Discharge Date and Diagnosis Date of Admission: 03/15/18 Date of Discharge: 03/15/18 - Primary Discharge Diagnosis Noncardiac chest pain - Secondary Discharge Diagnosis Chronic Problems GERD (gastroesophageal reflux disease) (Chronic) Irritable bowel syndrome (Chronic) Fibromyalgia (Chronic) Type 2 diabetes mellitus (Chronic) Hospital Course and Treatment Imaging Results: Diagnostic Data Abdomen/Pelvis CT 03/14/18 19:27 IMPRESSION: No acute abdominal or pelvic findings. Negative for evidence of bowel obstruction, bowel perforation or inflammatory bowel changes. Diverticulosis of the colon without evidence of acute diverticulitis. A normal appendix is identified. Normal kidneys bilaterally without hydronephrosis, renal or ureteral stones. Unremarkable urinary bladder. Status post hysterectomy with no pelvic mass or free fluid of the pelvis. Status post cholecystectomy with no dilatation of the bile ducts. Mild hepatomegaly primarily the right liver versus Ar's lobe, normal variation. Electronically Signed: Anusha Michelle MD at 21:40 EDT , Service support , Chest CTA 03/14/18 22:01 IMPRESSION: NEGATIVE for pulmonary embolus. Negative for aortic aneurysm or dissection. Negative for coronary calcifications. Shotty subcentimeter mediastinal, AP window and hilar lymph nodes. Patchy bibasilar small groundglass changes with increased multifocal linear/curvilinear interstitial opacities, nonspecific. Atelectatic changes in the costophrenic angles, left greater than right. Negative for substantial pleural effusion. Electronically Signed: Anusha Michelle MD at 23:32 EDT , Service support , Laboratory Results - last 24 hr 03/14/18 03/14/18 03/14/18 19:30 19:30 19:30 WBC 8.7 RBC 4.52 Hgb 14.5 Hct 41.2 MCV 91.2 MCH 32.1 H MCHC 35.2 RDW 12.9 RDW Differential 42.5 Plt Count 240 MPV 10.6 Immature Gran % (Auto) 0.200 Neut % (Auto) 39.2 L Lymph % (Auto) 50.3 H [place] % (Auto) 5.9 Eos % (Auto) 3.8 Baso % (Auto) 0.6 Absolute Neuts (auto) 3.4 Absolute Lymphs (auto) 4.36 Total Counted Not Reportable Sodium 139 Potassium 3.8 Chloride 103 Carbon Dioxide 27.0 Anion Gap 9 BUN 13 Creatinine 0.72 Estim Creat Clear Calc 80.76 Est GFR (MDRD) Af Amer 112 Est GFR (MDRD) Non-Af 93 BUN/Creatinine Ratio 18.1 Glucose 284 H Hemoglobin A1c 9.6 H Calcium 8.5 Total Bilirubin 0.20 AST 16 ALT 32 Alkaline Phosphatase 110 Troponin I Total Protein 7.1 Albumin 3.3 Globulin 3.8 Albumin/Globulin Ratio 0.9 Lipase 244 Urine Color Urine Clarity Urine pH Ur Specific [place] Urine Protein Urine Glucose (UA) Urine Ketones Urine Occult Blood Urine Nitrite Urine Bilirubin Urine Urobilinogen Ur Leukocyte Esterase Urine RBC Urine WBC Ur Squamous Epith Cells Urine Bacteria Urine Mucus POC Glucose 03/14/18 03/15/18 03/15/18 20:50 05:20 05:20 WBC 9.3 RBC 4.27 Hgb 13.6 Hct 40.0 MCV 93.7 MCH 31.9 MCHC 34.0 RDW 13.0 RDW Differential 43.1 Plt Count 206 MPV 10.9 Immature Gran % (Auto) 0.300 Neut % (Auto) 43.2 L Lymph % (Auto) 46.3 H [place] % (Auto) 6.2 Eos % (Auto) 3.5 Baso % (Auto) 0.5 Absolute Neuts (auto) 4.0 Absolute Lymphs (auto) 4.31 Total Counted Not Reportable Sodium 142 Potassium 4.0 Chloride 110 H Carbon Dioxide 22.0 Anion Gap 10 BUN 12 Creatinine 0.62 Estim Creat Clear Calc 93.79 Est GFR (MDRD) Af Amer 132 Est GFR (MDRD) Non-Af 109 BUN/Creatinine Ratio 19.2 Glucose 216 H Hemoglobin A1c Calcium 8.1 L Total Bilirubin < 0.10 L AST 17 ALT 28 Alkaline Phosphatase 96 Troponin I Total Protein 6.3 L Albumin 2.9 L Globulin 3.4 Albumin/Globulin Ratio 0.9 Lipase 143 Urine Color Yellow Urine Clarity Clear Urine pH 7.0 Ur Specific [place] 1.010 Urine Protein Negative Urine Glucose (UA) 1000 H Urine Ketones Negative Urine Occult Blood Negative Urine Nitrite Negative Urine Bilirubin Negative Urine Urobilinogen Normal Ur Leukocyte Esterase Negative Urine RBC 0 SEEN Urine WBC 0 SEEN Ur Squamous Epith Cells 0-5 SEEN Urine Bacteria 0 SEEN Urine Mucus 0 SEEN POC Glucose 03/15/18 03/15/18 03/15/18 05:20 06:35 11:48 WBC RBC Hgb Hct MCV MCH MCHC RDW RDW Differential Plt Count MPV Immature Gran % (Auto) Neut % (Auto) Lymph % (Auto) [place] % (Auto) Eos % (Auto) Baso % (Auto) Absolute Neuts (auto) Absolute Lymphs (auto) Total Counted Sodium Potassium Chloride Carbon Dioxide Anion Gap BUN Creatinine Estim Creat Clear Calc Est GFR (MDRD) Af Amer Est GFR (MDRD) Non-Af BUN/Creatinine Ratio Glucose Hemoglobin A1c Calcium Total Bilirubin AST ALT Alkaline Phosphatase Troponin I < 0.015 Total Protein Albumin Globulin Albumin/Globulin Ratio Lipase Urine Color Urine Clarity Urine pH Ur Specific [place] Urine Protein Urine Glucose (UA) Urine Ketones Urine Occult Blood Urine Nitrite Urine Bilirubin Urine Urobilinogen Ur Leukocyte Esterase Urine RBC Urine WBC Ur Squamous Epith Cells Urine Bacteria Urine Mucus POC Glucose 185 H 262 H 03/15/18 12:25 WBC RBC Hgb Hct MCV MCH MCHC RDW RDW Differential Plt Count MPV Immature Gran % (Auto) Neut % (Auto) Lymph % (Auto) [place] % (Auto) Eos % (Auto) Baso % (Auto) Absolute Neuts (auto) Absolute Lymphs (auto) Total Counted Sodium Potassium Chloride Carbon Dioxide Anion Gap BUN Creatinine Estim Creat Clear Calc Est GFR (MDRD) Af Amer Est GFR (MDRD) Non-Af BUN/Creatinine Ratio Glucose Hemoglobin A1c Calcium Total Bilirubin AST ALT Alkaline Phosphatase Troponin I < 0.015 Total Protein Albumin Globulin Albumin/Globulin Ratio Lipase Urine Color Urine Clarity Urine pH Ur Specific [place] Urine Protein Urine Glucose (UA) Urine Ketones Urine Occult Blood Urine Nitrite Urine Bilirubin Urine Urobilinogen Ur Leukocyte Esterase Urine RBC Urine WBC Ur Squamous Epith Cells Urine Bacteria Urine Mucus POC Glucose none Operations: None Procedures: None Summary of Care Provided: Patient is a 47-year-old female with past medical history of GERD, irritable bowel syndrome, fibromyalgia type 2 diabetes mellitus. She was admitted on 03/15/18 with the complaint of left-sided chest pain for about 2 weeks duration. Pain was constant, dull and aching, pleuritic in nature, initially 7 out of 10 which she said radiated to her back. Relieved by laying still with no other aggravating or relieving factors. She has a history of chronic cough due to smoking. She denied any nausea vomiting or diaphoresis. She has a history of shingles more than 10 years ago which occurred just above her left breast. In the ED CT abdomen and pelvis with contrast showed no acute intra-abdominal pathology and CT of the chest showed no evidence of PE or dissection and only revealed bilateral basilar small groundglass changes likely due to atelectasis and less likely pneumonia. She received IV Rocephin and azithromycin in the ED for presumed pneumonia. She was admitted for intractable left-sided pleuritic chest pain of unknown etiology. Patient remained stable and chest pain improved significantly. Troponins ?2 were negative and EKG also showed no acute ST changes. A1c done was 9.6 and patient was started on p.o. metformin 500 mg twice daily, to follow-up with her primary care doctor for monitoring of her diabetes and addition of any medications as deemed necessary. The cause of the pleuritic chest pain which had improved significantly at discharge was still not clear given at time of discharge the patient was totally stable and she is to follow-up with her primary care doctor for further workup. [] Discharge Diet: 1800 Calorie Control Diet Discharge Activity: Return to Normal Activity Weight Bearing Status: Weight bearing as tolerated Call your doctor if you observe: Chest pain Home Medications: Medications to take at Discharge Metformin HCl [Glucophage] 500 mg PO BIDCM #60 tab 03/15/18 Following Prescrptions Were Given to Patient: Metformin HCl [Glucophage] 500 mg PO BIDCM #60 tab Primary Care Physician: Care Physician,No Primary [Primary Care Provider] - Disposition: Home Minutes spent on discharge:: 35 Patient Condition:: Stable Medical Necessity - Tobacco Use Smoking Status: Current every day smoker Tobacco Use: Cigarettes Meaningful Use Info Meaningful Use Diagnoses (Choose all that apply): None applicable Code Visit Inpatient E&M: 91203 Disch Hosp
[2018-03-15 15:31] VITALS: BP 119/61; PULSE 65; RESP 18; TEMP 36.8; O2SAT 95
== END 2018-03-15 16:01 | disposition home or self-care (01) ==
LOC: ED 20:32 → MS3 03-15 00:31
PROVIDERS: Admitting Provider Hospitalist; Emergency Provider Emergency Medicine; Visit Provider Student in an Organized Health Care Education/Training Program
DX: R07.89 Other chest pain (principal); K21.9 Gastro-esophageal reflux disease without esophagitis; M79.7 Fibromyalgia; E11.9 Type 2 diabetes mellitus without complications; K58.9 Irritable bowel syndrome, unspecified; F17.210 Nicotine dependence, cigarettes, uncomplicated; R05 Cough; R10.812 Left upper quadrant abdominal tenderness; R94.8 Abnormal results of function studies of other organs and systems; K57.30 Diverticulosis of large intestine without perforation or abscess without bleeding; K22.70 Barrett's esophagus without dysplasia
CPT/HCPCS: 36415; 71275; 74177; 80053; 81001; 82962; 83036; 83690; 84484; 85025; 93005; 96361; 96365; 96367; 96375; 96376; 99218; 99282; J7030; J7050; Q9967; A4216; G0378; J2405; J3490

== ENCOUNTER 2022-11-03 11:00 | Outpatient (RCR) | payer OTHER, SELFPAY ==
--- NOTE | 2022-09-08 13:52 | HP.PTEVAL_ITS ---
Patient's Visit Information JAYDEN JACOBSON is a 52 year old F referred to Physical Therapy by Dr. Antoinette Jarvis MD with a diagnosis of Back and Leg Pain. Date of Evaluation: 09/08/22 Physical Therapist: Shoshana Lee DPT - Visit Plan Frequency: 2x /Week Duration: 4 Weeks Plan: Aquatics- focus on LE and core strength/stabilization- dec radicular s/s. HEP: education on posture - Subjective Patient reports that she has had back pain for a long time- on/off for years insidious onset. Managed by her PCP and then went to see Dr. Hooks and he took x-rays and MRI and he recommended surgery- instead Dr. Jarvis for pain mgmt- she has seen him 1x-he sent her to PT and is having a nerve block on the . She reports that she has constant pain across the the low back and if she stands of walks too much the pain goes down the left leg to the knee. Describes the back pain as dull and achy and then gradually moves outwards- no sharp pains up to the middle of the back. Pain down the leg is more a N/T and stabbing pains. She has had some buckling of the left LE but no falls. Worst: 610 Agg: standing for long periods of time, sitting for long periods of time (more than 20 min). Eases: laying down on her back and stretching. Best: 3/10. Sleeping on her right side is the best- it does wake her up to change positions. No loss or change in bowel/bladder. She is more sedentary- she is unemployed. 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 No trauma to her back. She fell last year and broke her right arm when her dog pulled her over. She does feel that her back is gradually getting worse. No N/T in the toes PMHx: DM, Gastroparesis, High cholesterol, sleep apnea, heart disease, Meds: ASA, protonix, crestor, lisipril, ntg, zofran, reglan, ibsrela, rybelsus, atavan, adderal, lyrica, flexeril, meloxicam - Objective Posture: FH, RS- can correct with verbal cues but does not maintain in sitting or standing. Gait: no deviation noted- good arm swing and trunk rotation. SLS: 5 sec then LOB bilaterally. HR/TR: able without UE A. ROM: Lumbar: Flexion: hands to mid alexander, Extn: neutral, SB: dec by 25 %- pain with Right and Rot: dec by 25%, Hip/Knee/Ankle: WFL. Strength: Core: fair minus, Ankle: 5/5, Knee: 5/5, Hip: Right: Flexion: 16 lbs, Extn: 27, Abd: 4/5, Add: 5/5, IR/ER: 4/5, Left: Flexion: 9 lbs, Extn: 27, Abd: 4-/5, Add: 5/5, IR/ER: 4/5 with discomfort. Flex: HS: moderate, Gastroc: moderate. Palpation: tender along lumbar paraspinals and gluts bilateral. Reflex: WNL to patella bilateral. Sensation: diminished on the thought of the left leg with gross touch. Special Test: LLD: negative - Special Tests L/S Slump test left side: Positive L/S Slump test right side: Negative L/S Left Straight Leg Raise: Positive L/S Right Straight Leg Raise: Negative R Hip KEI - Intraarticular Pathology: Negative R Hip FADDIR - Labrum: Negative L Hip KEI - Intraarticular Pathology: Negative L Hip FADDIR - Labrum: Negative - Balance/Special Test Scores Oswestry Low Back Score: 27 - Goals Goal 1:: Patient will be I with HEP and progression Goal Time Frame: 4-6 Weeks Goal 2:: Patient will maintain proper posture t/o tx session to demo increased core s/s Goal Time Frame: 4-6 Weeks Goal 3:: Patient will report no radicular s/s Goal Time Frame: 4-6 Weeks Goal 4:: Patient will report 80% improvement Goal Time Frame: 4-6 Weeks - Rehabilitation Potential Physical Therapy Diagnosis: Patient presents with hypomobility- she has decreased LE and core strength/stabilization, ROM, flex, proprioception and muscular endurance leading radicular s/s down the left LE and increased pain with ADL's. Rehabilitation Potential: Fair - Anticipated Interventions Patient/Client Instruction: Educate patient on: Benefits of Fitness Program Therapeutic Exercise to Include: Strength training, Endurance training, Agility training, Body mechanics, Postural training, Flexibilty training, Gait and locomotor training, Neuromotor development, Relaxation training, In an aquatic setting, Dynamic Lumbar Stabilization, Scapular Strength/Stabilization For the Purpose of:: To improve muscle performance and motor function Thank you for the opportunity to evaluate your patient. For Medicare and Medicare HMO plans, please review the plan of care and approve it. It will need to be FAXED BACK to us at [phone] for Medicare purposes. For Medicare only, by signing this I certify the plan of care. Please let me know if there are questions or concerns regarding this plan of care. Physician Signature: Da te:
--- NOTE | 2022-10-06 11:17 | HP.PTREVAL ---
Dr. Antoinette Jarvis MD, It has been my pleasure to treat JAYDEN JACOBSON over the last 5 visits for Back and Leg Pain. Please see the progress note below for an update on the physical therapy plan of care! Subjective: Patient reports that the injection helped about a week- she reports that the numbness intensity has diminished but the low back is still bad. Certain movements it feels like its grinding or popping out of place- bending over and lifting things. She does feel that therapy has been helping. Sleep is on/off depending on her position- side sleeper. Objective/Function: Posture: FH, RS- can correct with verbal cues but does not maintain in sitting or standing. Gait: no deviation noted- good arm swing and trunk rotation. SLS: 15 sec increased stability. HR/TR: able without UE A. ROM: Lumbar: Flexion: hands to mid alexander, Extn: neutral, SB: dec by 25 %- pain with Right and Rot: dec by 25%, Hip/Knee/Ankle: WFL. Strength: Core: fair minus, Ankle: 5/5, Knee: 5/5, Hip: Flexion/Extn: 4/5, Abd: 4/5, Add: 5/5, IR/ER: 4/5, Left: Flexion/Extn: 4/5, Abd: 4-/5, Add: 5/5, IR/ER: 4/5 with discomfort. Flex: HS: moderate, Gastroc: moderate. Palpation: tender along lumbar paraspinals and gluts bilateral. Reflex: WNL to patella bilateral. Sensation: diminished on the thought of the left leg with gross touch. Special Test: LLD: negative. - Special Tests. L/S Slump test left side: Positive. L/S Slump test right side: Negative. L/S Left Straight Leg Raise: Positive. L/S Right Straight Leg Raise: Negative. R Hip KEI - Intraarticular Pathology: Negative. R Hip FADDIR - Labrum: Negative. L Hip KEI - Intraarticular Pathology: Negative. L Hip FADDIR - Labrum: Negative Plan Plan: 10/06/22: Aquatics 2x a week for 4 weeks- continue towards PT goals. Aquatics- focus on LE and core strength/stabilization- dec radicular s/s. HEP: education on posture Balance/Gait/Functional tests - Balance/Special Test Scores Oswestry Low Back Score: 22 Goals Goal 1:: Patient will be I with HEP and progression Goal Time Frame: 4-6 Weeks Goal Progress: Progressing Goal 2:: Patient will maintain proper posture t/o tx session to demo increased core s/s Goal Time Frame: 4-6 Weeks Goal Progress: Progressing Goal 3:: Patient will report no radicular s/s Goal Time Frame: 4-6 Weeks Goal Progress: Progressing Goal 4:: Patient will report 80% improvement Goal Time Frame: 4-6 Weeks Goal Progress: Progressing Anticipated Interventions Patient/Client Instruction: Educate patient on: Benefits of Fitness Program Therapeutic Exercise to Include: Strength training, Endurance training, Agility training, Body mechanics, Postural training, Flexibilty training, Gait and locomotor training, Neuromotor development, Relaxation training, In an aquatic setting, Dynamic Lumbar Stabilization, Scapular Strength/Stabilization For the Purpose of:: To improve muscle performance and motor function Please do not hesitate to contact me at [phone] by phone or if you have questions or concerns regarding this new plan of care! Sincerely, NBA LondonoT
--- NOTE | 2022-11-03 12:52 | HP.PTDCSUM ---
It has been my pleasure to treat JAYDEN JACOBSON referred by Dr. Antoinette Jarvis MD, with the diagnosis of Back and Leg Pain for a total of 12 visit(s). Discharge Date: Please see the following information for a summary of their discharge status. Subjective: Patient reports that her back is about the same- she has had one injection- and she is going back to see Dr. Jarvis today. Doing her cleaning the back pain spreads but the back pain is 90% better. She sits and lays down a lot due the pain and is putting on a lot of weight. The pool helped but the pain is still no improving. She feels better when she is hanging. Lumbar pain is consistently a 6/10. agg: bending over, walking the dog. Eases: laying down and sitting. Low back Pain Intensity (Out of 10): 6 % Improvement: 50 Objective/Function: Posture: FH, RS- can correct with verbal cues but does not maintain in sitting or standing. Gait: no deviation noted- good arm swing and trunk rotation. HR/TR: able without UE A. ROM: Lumbar: Flexion: hands to mid alexander, Extn: neutral, SB: dec by 25 %- pain with Right and Rot: dec by 25%, Hip/Knee/Ankle: WFL. Strength: Core: fair minus, Ankle: 5/5, Knee: 5/5, Hip: Flexion/Extn: 4+/5, Abd: 4+/5, Add: 5/5, IR/ER: 4/5, Left: Flexion/Extn: 4+/5, Abd: 4+/5, Add: 5/5, IR/ER: 4/5 with discomfort. Flex: HS: moderate, Gastroc: moderate. Palpation: tender along lumbar paraspinals and gluts bilateral. Reflex: WNL to patella bilateral. Sensation: diminished on the thought of the left leg with gross touch. Special Test: LLD: negative. - Special Tests. L/S Slump test left side: Positive. L/S Slump test right side: Negative. L/S Left Straight Leg Raise: Positive. L/S Right Straight Leg Raise: Negative. R Hip KEI - Intraarticular Pathology: Negative. R Hip FADDIR - Labrum: Negative. L Hip KEI - Intraarticular Pathology: Negative. L Hip FADDIR - Labrum: Negative Goal 1:: Patient will be I with HEP and progression Goal Progress: Progressing Goal 2:: Patient will maintain proper posture t/o tx session to demo increased core s/s Goal Progress: Progressing Goal 3:: Patient will report no radicular s/s Goal Progress: Progressing Goal 4:: Patient will report 80% improvement Goal Progress: Progressing Plan: 11/03/22: Discharge to I HEP and follow up with Dr. Jarvis. 10/06/22: Aquatics 2x a week for 4 weeks- continue towards PT goals. Aquatics- focus on LE and core strength/stabilization- dec radicular s/s. HEP: education on posture If there are questions or concerns regarding this patient's physical therapy, please feel free to call me at [phone]. Thank you for the referral of this patient. Sincerely, Shoshana Lee, DPT Balance/Gait/Functional tests - Balance/Special Test Scores Oswestry Low Back Score: 20
== END 2022-11-03 14:10 | disposition home or self-care (01) ==
LOC: PT 11:00
PROVIDERS: PCP Family Medicine; Referring Provider Anesthesiology Pain Medicine; Visit Provider Anesthesiology Pain Medicine
DX: M54.9 Dorsalgia, unspecified (principal); M79.606 Pain in leg, unspecified
CPT/HCPCS: 97113; 97162; 97164

== ENCOUNTER 2023-05-18 11:46 | Observation (INO) | payer OTHER, SELFPAY ==
--- NOTE | 2023-04-27 10:57 | RAD_ITS ---
STUDY: X-RAY CHEST REASON FOR EXAM: Female, 52 years old. Preoperative evaluation. TECHNIQUE: Frontal and lateral views of the chest. COMPARISON: None. FINDINGS: The lungs are clear and expanded. There is no demonstrated pleural abnormality. Normal size heart. Normal mediastinum and kim. Normal visualized pulmonary arteries. Normal visualized aortic arch and descending thoracic aorta. Normal visualized thoracic spine. Normal visualized ribs, clavicles, and shoulders. No abnormality of the visualized soft tissue structures of the upper abdomen. RAD/Chest PA and Lateral IMPRESSION: Normal x-ray examination of the chest. Electronically Signed: Valerio Hubbard MD at 9:32 EDT ,
[2023-04-27 12:08] LABS: Absolute Lymphocyte Count 2.46 X10^3/uL (0.83-4.51); Absolute Neutrophil Count 4.9 X10^3/uL (2.0-7.7); Basophil# 0.07 X10^3/uL; Basophil% 0.9 % (0-1); Eosinophils% 1.2 % (0-5); Hematocrit 51.6 % (37-47); Hemoglobin 16.9 g/dL (12.0-15.0); Lymphocyte # 2.46 X10^3/ul (0.83-4.51); Mean Corp Hgb Conc 32.8 g/dL (32-36); Mean Corpuscular Hgb 30.9 pg (27.0-32.0); Mean Corpuscular Volume 94.3 fL (81-99); Mean Platelet Vol. 10.6 fl (6.2-12.0); Monocyte# 0.63 X10^3/uL; Monocyte% 7.7 % (0-10); NRBC Flagged by Analyzer 0 % (0-5); Neutrophil % 59.8 % (47-70); Platelet Count 232 K/mm3 (150-450); RBC Distribution Width CV 13.8 % (11.6-14.6); RBC Distribution Width SD 47.8 fl (35.1-43.9); Red Blood Count 5.47 M/mm3 (4.2-5.4); White Blood Count 8.2 K/mm3 (4.4-11.0)
[2023-04-27 12:20] LABS: Prothrombin Time (Protime)PT. 13.6 SECONDS (11.7-14.9)
[2023-04-27 12:21] LABS: Partial Thromboplast Time 26.4 Seconds (24.1-36.2)
[2023-04-27 12:32] LABS: Hemoglobin A1c 5.7 % (3.8-5.6)
[2023-04-27 12:42] LABS: AST(SGOT) 18 U/L (15-37); Alanine Aminotransfer ALT/SGPT 22 U/L (13-56); Albumin, Serum 3.5 g/dL (3.2-5.0); Alkaline Phosphatase 106 U/L (45-117); Bilirubin, Direct 0.16 mg/dL (0.00-0.30); Globulin 4.1 g/dL (2.2-4.2); Protein, Total 7.6 g/dL (6.4-8.2)
[2023-04-27 12:47] LABS: Anion Gap 6 (5-15); BUN 11 mg/dL (7-18); BUN/Creat Ratio 8.7 RATIO (10-20); Calcium,Total 9.3 mg/dL (8.5-10.1); Chloride 104 mmol/L (98-107); Creatinine, Serum 1.26 mg/dL (0.55-1.02); EST Glomerular Filtration Rate 47 mL/min (>60); Est Glom Filt Rate - Afr Amer 57 mL/min (>60); Glucose 81 mg/dL (74-106); Potassium 3.3 mmol/L (3.5-5.1); Sodium Level 137 mmol/L (136-145)
[2023-05-18] VITALS (15 sets, daily range): BP systolic 90–111; BP diastolic 39–88; PULSE 80–97; RESP 14–18; TEMP 36.4–37.3; O2SAT 91–98; BMI 39.6
[2023-05-18 06:40] LABS: Bedside Glucose 141 mg/dL (74-106)
[2023-05-18] MEDS: Lactated Ringers 1,000 ML 15 ML IV ×2 (06:44→13:13)
--- NOTE | 2023-05-18 07:15 | PCM.OPRPT ---
Report of Operation Date of Procedure: 05/18/23 Description of Surgical Findings:: Preop diagnosis: 1. Lumbar stenosis, L4-5 with spondylosis 2. Lumbar degenerative disc disease L4-5 Postop diagnosis: 1. Lumbar stenosis, L4-5 with spondylosis 2. Lumbar degenerative disc disease L4-5 Procedures performed: 1. L4-5 posterior lumbar interbody fusion 2. Insertion of intervertebral biomechanical device x1 3. Structural allograft for spinal fusion 4. L4 bilateral laminectomies, foraminotomies, facetectomies, decompression of bilateral nerve roots 5. L5 bilateral laminectomies, foraminotomies, facetectomies, decompression of bilateral nerve roots 6. L4-5 posterolateral fusion 7. Pedicle screw fixation 8. Local autograft for spinal fusion 9. Neuro monitoring bilateral upper and bilateral lower extremities Statement of medical necessity: The patient is a 53-year-old female with intractable back and leg pain. Image studies confirm the above diagnoses. They have failed conservative treatments to include medications physical therapy and injections and have opted for operative intervention understanding the risk to include but not limited to infection, bleeding, damage to nerves arteries and veins, possibility of spinal fluid leak, nonunion, hardware failure, continued pain, need for further surgery, deep vein thrombosis, pulmonary embolism, heart attack, risk of stroke or . Description of the procedure: The patient was identified in the preoperative holding area. There they received preoperative IV antibiotics and was then transferred to the operative suite. Once in the operative suite after general endotracheal anesthesia was established, the patient was positioned prone on the [facility]ryl operating table. All bony prominences were padded accordingly. The lumbar spine was prepped and draped in a standard fashion. Bear hugger's were not turned on until the drapes were placed and sealed with Ioban. A midline incision was made and taken down to the fascia. The fascia was divided and subperiosteal dissection was taken down to the level of the transverse processes of L4 and L5 bilaterally. Deep retractors were placed. A bone scalpel was used to make cuts in the lamina and then a series of rongeurs and Kerrisons were used removing the spinous process and lamina of L4 and L5. Then facetectomies of greater than 50% were performed as well as foraminotomies decompressing the bilateral nerve roots. Given the severity of the stenosis I needed to perform wide bilateral laminectomies and near complete facetectomies in order to decompress the neural elements. Disc created instability necessitating the fusion. I then proceeded with interbody fusion. The nerve roots and dura were identified and retracted medially. A knife was utilized to perform an annulotomy at L4-5. Endplate elevators, curettes, and pituitaries were utilized to remove disc material. Endplates were prepared with a rasp. An appropriate sized intervertebral peek cage device measuring 9 mm was packed with structural allograft and impacted into position completing the posterior lumbar interbody fusion at the L4-5 level. I then proceeded with pedicle screw fixation. Starting points were found at the junction of the superior articular process and transverse processes of L4 and L5. A power bur was used for the starting points. Pedicle probes were placed bilaterally and then 6.5 x 50 mm screws were placed bilaterally at L4 and L5. The screws were tested with intraoperative neurophysiologic monitoring and tested within normal limits. Connector rods were applied and secured with set screws. I then proceeded with the posterolateral fusion. This was accomplished by decorticating the transverse processes bilaterally at L4 and L5. This decorticated bone was then bridged with local autograft from the decompression as well as morselized cancellous allograft completing the posterolateral fusion of the L4-5 level. The incision was thoroughly irrigated. Tisseel was placed over the dura as a hemostatic agent. A deep drain was placed. The fascia was closed with #1 Vicryl, subcutaneous with 2-0 Vicryl and skin with 2-0 nylon. A sterile dressing was applied with 4 x 4's ABD and tape. Sponge instrument and needle counts were correct at the end of the case. Neurophysiologic monitoring was maintained at baseline throughout the duration of the case. The patient was extubated and taken to the PACU without incident Norma Espinosa PA-C was present during the entire duration of the case and necessary for critical parts of the case including retraction and closure Surgeon: Kali Hooks mgmt analyst: Norma Espinosa Type of Anesthesia: General Estimated Blood Loss (mL): 600 cc Fluids Replaced: 3000 cc Grafts/Implants Used: Unified spine Complications None Admit VTE Documentation VTE Present on Admission: No
--- NOTE | 2023-05-18 07:18 | PCM.PN.ORT ---
Subjective Subjective Seen and examined postop. Resting comfortably. Pain controlled. No complaints Objective Data Objective Data Vital Signs: Vital Signs Temp Pulse Resp BP Pulse Ox O2 Del Method 97.5 F L 88 18 98/59 L 95 Room Air 05/18/23 06:35 05/18/23 06:35 05/18/23 06:35 05/18/23 06:35 05/18/23 06:35 05/18/23 06:35 Oxygen Delivery Method Room Air Weight: 223 lb 12.8 oz Body Mass Index (BMI) 39.6 Lab / Micro Data 04/27/23 11:16 04/27/23 11:16 Labs: Laboratory Results - last 24 hr 05/18/23 06:20: POC Glucose 141 H Physical Exam Const alert, oriented x3 and no apparent distress General Appearance: cooperative, comfortable and well kempt HEENT normocephalic and head/scalp atraumatic Head and Scalp: normal to inspection Eyes EOMs intact bilaterally and conjunctivae normal Neck full ROM General: normal visual inspection Chest inspection of chest normal and palpation of chest normal Resp normal respiratory effort and normal air movement Cardio regular rate, regular rhythm and peripheral pulses 2+ throughout GI soft to palpation, non-tender and non-distended Back/Spine Back/Spine Narrative: Dressing clean dry and intact. Cervical Spine: cervical ROM normal Thoracic Spine / Upper Back: normal to inspection Lumbar Spine / Lower Back: normal to inspection Extremity normal to inspection, full ROM, normal capillary refill, no clubbing, cyanosis or edema and no calf tenderness Skin no rashes or lesions noted General Skin Exam: no breakdown Neuro oriented x3, CN's II-XII intact bilaterally, moves all extremities, no focal motor deficits, no sensory deficits noted and deep tendon reflexes 2+ bilaterally Motor Exam: muscle tone normal throughout Assessment & Plan Assessment/Plan (1) Lumbar stenosis: PLAN: Okay to admit See orders Discharge planning, likely home tomorrow
--- NOTE | 2023-05-18 07:20 | DS.PCM_ITS ---
Providers Date of Admission: 05/18/23 Primary Care Physician: Dr. Jane Flores DO Reason For Visit: Post Lum Interbody Fusion Watt One Diagnosis Discharge Diagnosis (1) Lumbar stenosis: Status: Acute Code(s): M48.061 - Spinal stenosis, lumbar region without neurogenic claudication Plan: Okay to admit See orders Discharge planning, likely home tomorrow Medications at Discharge Home Medications cyclobenzaprine 10 mg tablet 10 mg PO TID DEPRESSION 04/24/23 desvenlafaxine succinate 50 mg tablet,extended release 24 hr (Pristiq) 50 mg PO DAILY DEPRESSION 04/24/23 lisinopril 5 mg tablet 2.5 mg PO QHS HTN 04/24/23 methylphenidate HCl 20 mg tablet (Ritalin) 20 mg PO DAILY ADHD 04/24/23 metoclopramide HCl 10 mg tablet 10 mg PO TID GASTROPARESIS 04/24/23 metoprolol succinate 25 mg tablet,extended release 24 hr 12.5 mg PO QHS HTN 04/24/23 nitroglycerin 0.4 mg sublingual tablet 0.4 mg sublingual Q5M PRN chest pain 04/24/23 ondansetron HCl 8 mg tablet 8 mg PO TID 04/24/23 pantoprazole 40 mg tablet,delayed release 40 mg PO QHS GERD 04/24/23 pregabalin 300 mg capsule (Lyrica) 300 mg PO BID FIBROMYALGIA 04/24/23 rosuvastatin 40 mg tablet (Crestor) 40 mg PO DAILY HLD 04/24/23 semaglutide 7 mg tablet (Rybelsus) 7 mg PO DAILY DIABETES 04/24/23 tenapanor 50 mg tablet (Ibsrela) 50 mg PO BID IBSC 04/24/23 hydrocodone-acetaminophen 5-325mg 5mg-325mg 1 tab PO Q6H 7 days #28 tabs 05/18/23 Hospital Course Operations - (L4-5 posterior lumbar interbody fusion, decompression, posterior spinal fusion with instrumentation, use of allograft) Summary of Care Provided Minutes Spent on Discharge: 15 Hospital Course: The patient is a 53-year-old female who underwent L4-5 fusion on 05/18/2023. She was subsequently admitted. The hospitalist was consulted for medical management. Patient progressed well. Her pain was controlled and she was mobilizing well. No significant medical issues were reported. She was subsequently discharged home on to follow-up with Dr. Hooks in 3 weeks Physical Exam Const alert, oriented x3 and no apparent distress Constitutional Narrative: The patient was seen and examined. She is sitting up on the side of bed resting comfortably. She complains of some soreness in the back but this is manageable. She describes some paresthesias in the bilateral lateral thighs with right greater than left. She denies any other acute numbness tingling weakness or changes in bowel or bladder function General Appearance: cooperative, comfortable and well kempt Neck full ROM General: normal visual inspection Resp normal respiratory effort and normal air movement Effort and Inspection: able to speak in complete sentences Cardio regular rate and peripheral pulses 2+ throughout GI soft to palpation, non-tender and non-distended Back/Spine Back/Spine Narrative: Dressing clean dry and intact. Incision well approximated with interrupted sutures in place. No tenderness erythema drainage or fluctuance Cervical Spine: cervical ROM normal Thoracic Spine / Upper Back: normal to inspection Lumbar Spine / Lower Back: normal to inspection Extremity normal to inspection, full ROM, normal capillary refill, no clubbing, cyanosis or edema and no calf tenderness Skin no rashes or lesions noted General Skin Exam: no breakdown Neuro oriented x3, CN's II-XII intact bilaterally, moves all extremities, no focal motor deficits, no sensory deficits noted and deep tendon reflexes 2+ bilaterally Motor Exam: strength 5/5 throughout and muscle tone normal throughout Weight / BMI Weight Weight: 223 lb 12.8 oz Body Mass Index (BMI) 39.6 ABG / Lab / Microbiology Data 04/27/23 11:16 04/27/23 11:16 Laboratory: Laboratory Results - last 24 hr 05/18/23 06:20: POC Glucose 141 H D/C Instructions Discharge Diet: No restrictions Weight Bearing Status: Weight bearing as tolerated Call your doctor if your incision/area has: Continuous Slow Oozing, Sudden Increased Bleeding, Increased Pain/ Swelling, Increased Redness, Foul Smelling Discharge and Swelling at the incision site Call your doctor if you observe: Fever of 101 or Higher, Coldness, Increased Pain, Numbness or Tingling, Change in Color, Inability to urinate, Inability to have a bowel movement, Using more than 1 pad per hour, Shortness of breath, Diz ziness, Fainting spells, Swelling in the ankles, Chest pain, Prolonged hiccupping, Increased palpitations (irregular heartbeat), Calf discomfort and Uncontrolled pain Cleanse incision/area with: Do not get Incision Wet and Keep Dressing Clean & Dry Additional Dressing/Incision Instructions: Change dressing daily with iodine gauze and tape. Use waterproof dressing to shower Additional Instructions: Wear back brace at all times. No repetitive bending twisting or lifting greater than 5 pounds Please Follow Up With: Kali Hooks DO When: 3 weeks Meaningful Use Info Meaningful Use Diagnoses (Choose all that apply): None applicable Discharge Plan Admission Admit Date/Time: 05/18/23 11:46 Attending Provider: Kali Hooks Primary Care Provider: Jane Flores Consulting Providers: Apple Pacheco Instructions Additional Instructions / Restrictions: 1. During your procedure, you received sedation through your IV. Please follow these instructions for the next 24 hours: Do not drive a motor vehicle, do not drink any alcoholic beverages, and do not sign any legal documents or make personal or business decisions. A responsible adult should stay with you at least 6 hours after the procedure. 2. Keep your surgical site/incision clean and the dressing dry and intact. You may use an ice pack at the surgical site to reduce any swelling or discomfort. 3. Monitor the incision site for any signs or symptoms of infection. Watch for redness, excessive swelling or drainage, or continued pain at the incision site after 3 days. Contact your physician immediately for a fever, chills or a temperature of 101.5? F or greater. 4. Take your medication exactly as prescribed by your physician. Do not attempt to wean yourself off any of your medications even though your pain is improving. This process needs to be carefully monitored by your doctor. Take any antibiotics prescribed exactly as directed and until they are gone. 5. Avoid stretching, bending, pulling, twisting or any sudden movements. Do not bend or twist at the waist. Wear back brace at all times 6. No lifting greater than 5 pounds. 7. Do not operate a motor vehicle, equipment or a power tool while taking pain medication 8. Do not have any manipulation done by a chiropractor or any other physician without first consulting with the surgeon 9. Please contact our office if you are even scheduled for a CT scan or an MRI. 10. Please call us if you have any questions, problems or concerns. Discharge Orders/Prescriptions Prescriptions: New hydrocodone-acetaminophen 5-325 mg tablet 1 tab PO Q6H 7 Days Qty: 28 0RF Continued Rybelsus 7 mg tablet 7 mg PO DAILY Ibsrela 50 mg tablet 50 mg PO BID Rx Instructions: must administer immediately before first meal of day/breakfast and dinner metoclopramide HCl 10 mg tablet 10 mg PO TID Patient Comments: TAKE 1 TABLET BY MOUTH THREE TIMES A DAY pantoprazole 40 mg tablet,delayed release (DR/EC) 40 mg PO QHS Patient Comments: TAKE 1 TABLET BY MOUTH EVERY DAY ondansetron HCl 8 mg tablet 8 mg PO TID Patient Comments: TAKE 1 TABLET BY MOUTH EVERY 8 HOURS NEEDED FOR NAUSEA AND VOMITING desvenlafaxine succinate [Pristiq] 50 mg tablet extended release 24 hr 50 mg PO DAILY cyclobenzaprine 10 mg tablet 10 mg PO TID pregabalin [Lyrica] 300 mg capsule 300 mg PO BID lisinopril 5 mg tablet 2.5 mg PO QHS Patient Comments: TAKE ONE-HALF TABLET BY MOUTH IN THE MORNING metoprolol succinate 25 mg tablet extended release 24 hr 12.5 mg PO QHS Patient Comments: TAKE 0.5 TAB(S) BY MOUTH AT NIGHT TIME. INSTR:DO NOT CRUSH OR CHEW (CONTROLLED RELEASE) methylphenidate HCl [Ritalin] 20 mg tablet 20 mg PO DAILY rosuvastatin [Crestor] 40 mg tablet 40 mg PO DAILY nitroglycerin 0.4 mg tablet, sublingual 0.4 mg sublingual Q5M PRN (Reason: chest pain) Patient Comments: PLACE 1 TABLET UNDER TONGUE EVERY 5 MINS, UP TO 3 DOSES NEEDED FOR CHEST PAIN Discontinued aspirin 81 mg tablet,delayed release (DR/EC) 81 mg PO DAILY Patient Comments: TAKE 1 TABLET BY MOUTH EVERY DAY lorazepam [Ativan] 1 mg tablet 1 mg PO Q8H PRN (Reason: anxiety) Referrals / Follow Up: Kali Hooks DO [Med Staff - Active Staff] - Jane Flores DO [Primary Care Provider] - Disposition Disposition (needs filled in before D/C Order can be placed): Home, Self Care
--- NOTE | 2023-05-18 08:15 | RAD_ITS ---
STUDY: X-RAY - LUMBAR SPINE REASON FOR EXAM: Female, 53 years old. L4-5 POSTERIOR FUSION WITH INSTRUMENTS TECHNIQUE: 5 fluoroscopic guided view(s) of the lumbar spine were obtained. COMPARISON: February 24, 2023 FINDINGS: Intraoperative changes status post bilateral laminectomy, posterior fusion at L4-5 with disc spacer placement . RAD/Lumbar Spine 2 or 3 Views IMPRESSION: Status post bilateral laminectomy and posterior fusion at L4-5. Electronically Signed: Kali Young MD at 16:51 EDT ,
[2023-05-18] MEDS: Cefazolin 2 GM in 0.9% Normal Saline (100mL Bag) 100 ML IV (08:20)
[2023-05-18] MEDS: THROMBIN (RECOMBINANT) 20,000 UNIT VIAL 20000 UNIT TOPICAL (08:32)
[2023-05-18] MEDS: Heparin 10,000 UNITS/10 ML Vial 10000 UNITS (09:14)
[2023-05-18] MEDS: Bupivacaine 0.25% 30 ML Vial (11:43)
[2023-05-18 13:22] LABS: Bedside Glucose 127 mg/dL (74-106)
[2023-05-18] MEDS: Lactated Ringers 1,000 ML 100 ML IV (14:30)
[2023-05-18] MEDS: Acetaminophen 500 MG Tablet 1000 MG PO ×2 (14:32→20:56)
[2023-05-18] MEDS: Cefazolin 1 GM/50 ML BAG IV ×2 (14:32→22:07)
[2023-05-18] MEDS: cycloBENZAPRine HCl 10 MG Tablet PO ×2 (14:32→20:55)
[2023-05-18] MEDS: Metoclopramide 10 MG Tablet PO ×2 (14:33→20:56)
[2023-05-18] MEDS: oxyCODONE 5 MG Tablet PO ×2 (16:03→20:56)
[2023-05-18] MEDS: 0.9% Saline Lock 10 ML Syringe IV (17:25)
[2023-05-18] MEDS: Morphine 4 MG/ML Syringe IV (17:26)
--- NOTE | 2023-05-18 18:48 | PN.HOSP_ITS ---
Reason for Visit Reason for Visit: Diagnoses Spinal stenosis, lumbar region without neurogenic claudication (05/18/23) Encounter for other preprocedural examination (05/18/23) Subjective Subjective 53-year-old female with history of ADHD, hypertension, GERD, fibromyalgia, diabetes presented to [facility] 05/18/2023 for a L4-5 fusion, insertion of intervertebral biomechanical device, and decompression for her lumbar stenosis and degenerative disc disease with Dr. Hooks. Hospitalist consulted for medical management. Patient seen at bedside and reports that she still having a lot of pain and that her fibromyalgia makes all of her pain exacerbated. Has a slight cough since waking up from surgery but does not feel more short of breath. No chest pain, no other complaints Objective Data Objective Data Vital Signs: Vital Signs Temp Pulse Resp BP Pulse Ox O2 Del Method O2 Flow Rate 98.3 F 84 18 101/59 L 95 Nasal Cannula 2 05/18/23 18:11 05/18/23 18:11 05/18/23 18:11 05/18/23 18:11 05/18/23 18:11 05/18/23 18:11 05/18/23 18:11 Oxygen Flow Rate (L/min) 2 Oxygen Delivery Method Nasal Cannula Weight: 101.514 kg Body Mass Index (BMI) 39.6 Intake & Output: Intake and Output for Last 24 Hours 05/16/23 05/17/23 05/18/23 23:59 23:59 23:59 Intake Total 4184 / 4184 Output Total 175 / 175 Balance 4009 / 4009 Lab / Micro Data 04/27/23 11:16 04/27/23 11:16 Labs: Laboratory Results - last 24 hr 05/18/23 06:20: POC Glucose 141 H 05/18/23 13:00: POC Glucose 127 H Radiography Diagnostic Testing: Radiology Impression Lumbar Spine X-Ray 05/18/23 08:15 IMPRESSION: Status post bilateral laminectomy and posterior fusion at L4-5. Electronically Signed: Kali Young MD at 16:51 EDT , Physical Exam Narrative General: Appears tired but wakes up and answers questions appropriately HEENT: Atraumatic, normocephalic Eyes: Anicteric, normal conjunctiva, extraocular movements grossly intact Neck: Supple Respiratory: Clear to auscultation bilaterally, normal respiratory effort Cardiovascular: Regular rate and rhythm GI: Soft, nontender, nondistended Extremities: No edema Musculoskeletal: Moving all extremities Neuro: No overt focal neurological deficits Skin: No rashes appreciated Psych: Cooperative Assessment & Plan Assessment/Plan (1) Lumbar stenosis: (2) Type 2 diabetes mellitus: (3) Irritable bowel syndrome: (4) GERD (gastroesophageal reflux disease): (5) Fibromyalgia: (6) ADHD: PLAN: Plan #Degenerative disc disease and lumbar stenosis -Status post fusion and decompression L4-L5 with implanted biomechanical device with Dr. Hooks 05/18/2023 -Patient on postop cefazolin and pain control #TEOFILO -Continue home NIPPV which is at bedside #HTN -Given BP soft postop likely due to anesthesia with her multiple medications w ill hold her lisinopril -Add holding parameters to metoprolol #Fibromyalgia -Continue her venlafaxine and Lyrica, also appears to have desvenlafaxine on home med list, would not advise taking that and venlafaxine together upon discharge due to potential dangerous interactions #Type 2 diabetes mellitus -Patient on semaglutide but this is nonformulary, will add glucose checks and sliding scale insulin while she is inpatient, most recent A1c well controlled at 5.7 #IBS -Continue home medication, may need to be brought in as nonformulary if patient will have prolonged hospital stay #Tobacco use -Advise cessation #ADHD -Takes methylphenidate at home #DVT ppx: Will defer timing to primary as she is postop but will likely DC home tomorrow per documentation Apple Pacheco MD Charges/Coding Visit Charges Inpatient E&M: 85029 Subs Hosp L2 Office Visits / Consults: [id number] OP Consult L2
[2023-05-18] MEDS: Ipratropium/Albuterol Sulfate 3 ML AMPUL.NEB INHALATION (19:55)
[2023-05-18] MEDS: Atorvastatin Calcium 80 MG Tablet PO (20:53)
[2023-05-18] MEDS: Pantoprazole Sodium 40 MG Tablet PO (20:55)
[2023-05-18] MEDS: Pregabalin 75 MG Capsule 300 MG PO (20:55)
[2023-05-18 21:19] LABS: Bedside Glucose 154 mg/dL (74-106)
[2023-05-19] VITALS (8 sets, daily range): BP systolic 96–129; BP diastolic 56–91; PULSE 81–101; RESP 12–20; TEMP 36.4–37.3; O2SAT 90–94
[2023-05-19] MEDS: Lactated Ringers 1,000 ML 100 ML IV (00:10)
[2023-05-19] MEDS: oxyCODONE 5 MG Tablet PO ×3 (00:32→09:58)
[2023-05-19] MEDS: Ipratropium/Albuterol Sulfate 3 ML AMPUL.NEB INHALATION ×2 (01:34→07:20)
[2023-05-19] MEDS: Morphine 4 MG/ML Syringe IV (02:03)
[2023-05-19] MEDS: Acetaminophen 500 MG Tablet 1000 MG PO (05:36)
[2023-05-19] MEDS: cycloBENZAPRine HCl 10 MG Tablet PO (05:36)
[2023-05-19] MEDS: Metoclopramide 10 MG Tablet PO (05:37)
[2023-05-19 06:07] LABS: Bedside Glucose 119 mg/dL (74-106)
[2023-05-19] MEDS: Ensure Surgery 237 ML LIQUID PO (07:42)
[2023-05-19 08:28] LABS: Absolute Lymphocyte Count 1.54 X10^3/uL (0.83-4.51); Absolute Neutrophil Count 6.2 X10^3/uL (2.0-7.7); Basophil# 0.04 X10^3/uL; Basophil% 0.5 % (0-1); Eosinophil# 0.07 X10^3/uL; Eosinophils% 0.8 % (0-5); Hematocrit 38.4 % (37-47); Lymphocyte # 1.54 X10^3/ul (0.83-4.51); Lymphocyte % 18.3 % (19-41); Mean Corp Hgb Conc 31.3 g/dL (32-36); Mean Corpuscular Hgb 30.5 pg (27.0-32.0); Mean Corpuscular Volume 97.5 fL (81-99); Monocyte# 0.56 X10^3/uL; Monocyte% 6.7 % (0-10); NRBC Flagged by Analyzer 0 % (0-5); Neutrophil # 6.17 X10^3/uL (2.7-7.7); Neutrophil % 73.3 % (47-70); Platelet Count 125 K/mm3 (150-450); RBC Distribution Width CV 14.3 % (11.6-14.6); RBC Distribution Width SD 51.2 fl (35.1-43.9); Red Blood Count 3.94 M/mm3 (4.2-5.4); White Blood Count 8.4 K/mm3 (4.4-11.0)
[2023-05-19 08:51] LABS: Anion Gap 4 (5-15); BUN 9 mg/dL (7-18); BUN/Creat Ratio 10.3 RATIO (10-20); Calcium,Total 8.1 mg/dL (8.5-10.1); Chloride 106 mmol/L (98-107); Creatinine, Serum 0.87 mg/dL (0.55-1.02); EST Glomerular Filtration Rate 73 mL/min (>60); Est Glom Filt Rate - Afr Amer 88 mL/min (>60); Estimated Creatinine Clearance 62.57 ml/min; Glucose 139 mg/dL (74-106); Potassium 3.7 mmol/L (3.5-5.1); Sodium Level 137 mmol/L (136-145)
--- NOTE | 2023-05-19 09:30 | CASEMGMT ---
Addendum entered by Scarlet Esquivel 05/19/23 10:42: Pt does not require home oxygen. Original Note: RN SEGUNDO Assessment: Face to Face with pt for initial transition planning/care coordination assessment. RN SEGUNDO introduced self and role at [facility], pt voices understanding and consents to assessment. Pt is A/O x4 and answers all questions appropriately at this time. Pt lying in bed on RA in no distress. Nurse monitoring oxygen level. Care providers, pharmacy, and demographics verified/updated. Admitting Dx: post lum interbody fusion PCP:Mark Specialists:[facility]; [place], cardio Preferred Pharmacy: [facility], pt states this is not in network but she is going to self pay for pain meds Insurance: [employer] Prescription Benefit: yes LNOK: Ranjith Kenny, Living Arrangements: Pt lives with and dtr in a two story home with 4 steps to enter with no rail. Pt reports a first floor set up for post surgery. and dtr to assist pt as needed. Pt denies concerns at home. Transportation: Pt drives self and denies concerns with transportation. Pt to transport pt until she can drive again. DME/HHC/SNF: Pt has a FWW, straight cane and CPAP at home. Pt denies hx of HHC or SNF stays. Pt states no concerns with going home at time of dc. Pt states no further concerns/needs. CM to follow. Advised pt to ask CM if any further question/concerns/needs arise, voices understanding. Pt Goal: Home Plan: Home, follow for any oxygen needs
[2023-05-19] MEDS: Venlafaxine XR 37.5 MG Capsule PO (09:53)
[2023-05-19] MEDS: Pregabalin 75 MG Capsule 300 MG PO (09:57)
[2023-05-19 12:19] LABS: Bedside Glucose 180 mg/dL (74-106)
--- NOTE | 2023-05-19 12:39 | CASEMGMT ---
Social Work - SDOH screening To patient's room to complete the SDOH screening, however patient was already discharged and not in room. Unable to complete face to face screening. -ALEX Jennings, VOLUNTEER SERVICES SUPERVISOR
== END 2023-05-19 12:20 | disposition home or self-care (01) ==
LOC: SDC 15:26 → MS3 15:26
PROVIDERS: Anesthesiology; Family Medicine; Admitting Provider Orthopaedic Surgery; PCP Family Medicine; Referring Provider Orthopaedic Surgery; Visit Provider Orthopaedic Surgery
PROC: 0SG00AJ Fusion of Lumbar Vertebral Joint with Interbody Fusion Device, Posterior Approach, Anterior Column, Open Approach (ICD-10-PCS; CPT 22630; principal; 2023-05-18 07:00)
DX: M48.061 Spinal stenosis, lumbar region without neurogenic claudication (principal); E11.9 Type 2 diabetes mellitus without complications; M47.26 Other spondylosis with radiculopathy, lumbar region; M51.36 Other intervertebral disc degeneration, lumbar region; I10 Essential (primary) hypertension; K58.9 Irritable bowel syndrome, unspecified; M79.7 Fibromyalgia; K21.9 Gastro-esophageal reflux disease without esophagitis; F90.9 Attention-deficit hyperactivity disorder, unspecified type; G47.33 Obstructive sleep apnea (adult) (pediatric); Z79.899 Other long term (current) drug therapy; I25.2 Old myocardial infarction; F17.210 Nicotine dependence, cigarettes, uncomplicated; I25.10 Atherosclerotic heart disease of native coronary artery without angina pectoris; M43.16 Spondylolisthesis, lumbar region; E66.8 Other obesity; Z68.39 Body mass index [BMI] 39.0-39.9, adult; Z79.82 Long term (current) use of aspirin; F41.9 Anxiety disorder, unspecified; F32.A Depression, unspecified; E78.00 Pure hypercholesterolemia, unspecified; F17.290 Nicotine dependence, other tobacco product, uncomplicated
CPT/HCPCS: 22633; 63052; 63053; 20930; 20936; 22853; 22842; 00670; 36415; 71046; 72100; 76000; 80048; 80076; 82962; 83036; 85025; 85610; 85730; 93005; 94640; 94668; 96361; 96365; 96366; 96375; 96376; 97162; 99221; 99252; C1713; J7120; A4216; G0378; G0463

== ENCOUNTER 2023-07-25 08:43 | Day surgery (SDC) | payer OTHER, SELFPAY ==
[2023-07-25] VITALS (11 sets, daily range): BP systolic 94–136; BP diastolic 46–98; PULSE 80–89; RESP 16; TEMP 36.2–36.8; O2SAT 91–98; BMI 38.2
[2023-07-25] MEDS: Lactated Ringers 1,000 ML 15 ML IV ×2 (09:39→13:34)
[2023-07-25 10:04] LABS: Bedside Glucose 103 mg/dL (74-106)
--- NOTE | 2023-07-25 10:56 | PCM.OPRPT ---
Report of Operation Date of Procedure: 07/25/23 Pre-Operative Diagnosis: Delayed wound healing, lumbar Post-Operative Diagnosis: Delayed wound healing, lumbar Surgery/Procedure Performed:: 1. Lumbar irrigation, debridement, wound exploration 2. Application of wound VAC Description of Surgical Findings:: Statement of medical necessity: The patient is a 53-year-old female with delayed wound healing status post lumbar fusion. They have failed conservative treatments and have opted for operative intervention understanding the risk to include but not limited to infection, bleeding, damage to nerves arteries and veins, possibility of spinal fluid leak, continued pain, need for further surgery, deep vein thrombosis, pulmonary embolism, heart attack, risk of stroke or . Description of the procedure: The patient was identified in the preoperative holding area. There they received preoperative IV antibiotics and was then transferred to the operative suite. Once in the operative suite after general endotracheal anesthesia was established, the patient was positioned prone on the operating table. All bony prominences were padded accordingly. The lumbar spine was prepped and draped in a standard fashion. Bear hugger's were not turned on until the drapes were placed and sealed with Ioban. The previous midline incision was reopened with a 15 blade and taken down to the fascia. A small amount of dark fluid was encountered. Cultures were taken. Deep retractors were placed. Superficial necrotic tissue around the wound margins was sharply debrided. The wound was then explored and any fluid or necrotic tissue was debrided. The wound was thoroughly irrigated. The fascia was inspected and found to be intact. No significant tunneling or tracking was noted. The incision size with pocket was 8 cm long by 5 cm wide by 4 cm deep. A wound VAC was placed. Sponge instrument and needle counts were correct at the end of the case. The patient was extubated and taken to the PACU without incident Surgeon: Kali Hooks Type of Anesthesia: General Specimen's removed: Lumbar wound cultures Estimated Blood Loss (mL): 5 cc Fluids Replaced: 600 cc Complications None Admit VTE Documentation VTE Present on Admission: No
--- NOTE | 2023-07-25 10:56 | PCM.PN.ORT ---
Subjective Subjective Seen and examined postop. Resting comfortably. Pain controlled. No complaints Objective Data Objective Data Vital Signs: Vital Signs Temp Pulse Resp BP Pulse Ox O2 Del Method 98.3 F 87 16 122/76 H 91 Room Air 07/25/23 09:29 07/25/23 09:29 07/25/23 09:29 07/25/23 09:29 07/25/23 09:29 07/25/23 09:29 Oxygen Delivery Method Room Air Weight: 216 lb 0.848 oz Body Mass Index (BMI) 38.2 Lab / Micro Data Labs: Laboratory Results - last 24 hr 07/25/23 09:38: POC Glucose 103 Physical Exam Const alert, oriented x3 and no apparent distress General Appearance: cooperative, comfortable and well kempt HEENT normocephalic and head/scalp atraumatic Eyes EOMs intact bilaterally and conjunctivae normal Neck full ROM General: normal visual inspection Chest inspection of chest normal and palpation of chest normal Resp normal respiratory effort and normal air movement Cardio regular rate, regular rhythm and peripheral pulses 2+ throughout GI soft to palpation, non-tender and non-distended Back/Spine Back/Spine Narrative: Wound VAC intact and functioning Cervical Spine: cervical ROM normal Thoracic Spine / Upper Back: normal to inspection Lumbar Spine / Lower Back: normal to inspection Extremity normal to inspection, full ROM, normal capillary refill, no clubbing, cyanosis or edema and no calf tenderness Skin no rashes or lesions noted General Skin Exam: no breakdown Neuro oriented x3, CN's II-XII intact bilaterally, moves all extremities, no focal motor deficits, no sensory deficits noted and deep tendon reflexes 2+ bilaterally Motor Exam: strength 5/5 throughout and muscle tone normal throughout Assessment & Plan Assessment/Plan (1) Delayed surgical wound healing: PLAN: Okay to admit See orders Discharge planning likely home tomorrow
[2023-07-25] MEDS: Cefazolin 2 GM in 0.9% Normal Saline (100mL Bag) 100 ML IV (11:39)
[2023-07-25 13:08] LABS: Bedside Glucose 88 mg/dL (74-106)
--- NOTE | 2023-07-25 13:37 | CASEMGMT ---
TRACEY RAYMOND made aware that pt will have wound vac and need HHC set up. Wound nurse called TRACEY RAYMOND called with pt present, spoke with pt who states she has no preference of WR[facility]OR. She states she is fine with using the hospital's HH and does not want a list of providers. MARK[facility] Cee at [facility], referral made. Pt was accepted with [facility] on Monday. Pt is aware of this. No further needs at this time.
== END 2023-07-25 15:38 | disposition home health service (06) ==
LOC: SDC 08:44 → AC 08:46
PROVIDERS: PCP Family Medicine; Referring Provider Orthopaedic Surgery; Visit Provider Orthopaedic Surgery
PROC: (CPT 10180; principal; 2023-07-25 10:15)
DX: T81.31XA Disruption of external operation (surgical) wound, not elsewhere classified, initial encounter (principal); M46.96 Unspecified inflammatory spondylopathy, lumbar region; E11.9 Type 2 diabetes mellitus without complications; Z98.1 Arthrodesis status; F17.210 Nicotine dependence, cigarettes, uncomplicated; M48.061 Spinal stenosis, lumbar region without neurogenic claudication; M47.26 Other spondylosis with radiculopathy, lumbar region; M51.36 Other intervertebral disc degeneration, lumbar region; M43.16 Spondylolisthesis, lumbar region; Z91.198 Patient's noncompliance with other medical treatment and regimen for other reason; E66.8 Other obesity; I10 Essential (primary) hypertension; Z68.39 Body mass index [BMI] 39.0-39.9, adult; Y82.9 Unspecified medical devices associated with adverse incidents; Z79.82 Long term (current) use of aspirin; I25.2 Old myocardial infarction; I25.10 Atherosclerotic heart disease of native coronary artery without angina pectoris; Z95.5 Presence of coronary angioplasty implant and graft; G47.30 Sleep apnea, unspecified
CPT/HCPCS: 10180; 00300; 82962; 87070; 87075; 87205; J7120; J2405

== ENCOUNTER 2023-07-27 18:35 | Inpatient (IN) | payer OTHER, SELFPAY ==
[2023-07-27] VITALS (15 sets, daily range): BP systolic 75–113; BP diastolic 36–66; PULSE 85–111; RESP 14–21; TEMP 36.2–37.3; O2SAT 82–96; BMI 38.9; BMI 39.1
--- NOTE | 2023-07-27 18:47 | EX.ED.DYSGE1 ---
HPI History of Present Illness Chief Complaint: Wound Check [facility] Medical History (Updated 07/27/23 @ 22:[address] Forest Jalloh, DO) ADHD Alcohol use Anxiety Arthritis BiPAP (biphasic positive airway pressure) dependence [facility] Cardiology follow-up encounter Depression Diabetes Gastric reflux Gastroparesis High cholesterol History of diverticulitis History of echocardiogram History of edema History of heart attack History of IBS History of renal disease History of stress test Hypertension Marijuana use Migraine headache PONV (postoperative nausea and vomiting) Shortness of breath on exertion Sleep apnea Smoker Wears glasses Home Medications cyclobenzaprine 10 mg tablet 10 mg PO TID muscle relaxer 04/24/23 [History Last Taken 05/18/23 05:00] desvenlafaxine succinate 50 mg tablet,extended release 24 hr (Pristiq) 50 mg PO DAILY DEPRESSION 04/24/23 [History Last Taken 07/25/23] lisinopril 5 mg tablet 2.5 mg PO QHS HTN 04/24/23 [History Last Taken 05/17/23 20:00] methylphenidate HCl 20 mg tablet (Ritalin) 20 mg PO DAILY ADHD 04/24/23 [History Last Taken 05/18/23 05:00] metoclopramide HCl 10 mg tablet 10 mg PO TID GASTROPARESIS 04/24/23 [History Last Taken 07/25/23] metoprolol succinate 25 mg tablet,extended release 24 hr 12.5 mg PO QHS HTN 04/24/23 [History Last Taken 05/17/23 20:00] nitroglycerin 0.4 mg sublingual tablet 0.4 mg sublingual Q5M PRN chest pain 04/24/23 [History Last Taken Unknown] ondansetron HCl 8 mg tablet 8 mg PO TID 04/24/23 [History Last Taken 05/18/23 05:00] pantoprazole 40 mg tablet,delayed release 40 mg PO QHS GERD 04/24/23 [History Last Taken 05/17/23 20:00] pregabalin 300 mg capsule (Lyrica) 300 mg PO BID FIBROMYALGIA 04/24/23 [History Last Taken 07/25/23] rosuvastatin 40 mg tablet (Crestor) 40 mg PO DAILY HLD 04/24/23 [History Last Taken 07/25/23] semaglutide 7 mg tablet (Rybelsus) 7 mg PO DAILY DIABETES 04/24/23 [History Last Taken 07/25/23] tenapanor 50 mg tablet (Ibsrela) 50 mg PO BID IBSC 04/24/23 [History Last Taken 07/25/23] albuterol sulfate 90 mcg/actuation aerosol inhaler 2 puff inhalation Q4H 07/24/23 [History Last Taken Unknown] oxycodone-acetaminophen 5 mg-325 mg tablet 1 tab PO Q6H PRN pain 07/24/23 [History Last Taken Unknown] sulfamethoxazole 800 mg-trimethoprim 160 mg tablet 1 tab PO BID 07/24/23 [History Last Taken Unknown] Allergy/AdvReac Type Severity Reaction Status Date / Time magnesium salicylate Allergy Swelling Verified 07/27/23 18:37 Surgical History History of History of cholecystectomy History of colonoscopy History of coronary artery stent placement History of gastric surgery History of hysterectomy History of lumbar fusion History of umbilical hernia repair Social History Smoking Status: Current every day smoker tobacco type: cigarettes EXAM Physical Exam Const Vital Signs: 07/27/23 18:38 07/27/23 18:50 07/27/23 18:54 Temperature 97.2 F L Temperature Source Temporal Pulse Rate 111 H 105 H Respiratory Rate 20 H 16 Blood Pressure 77/46 L Blood Pressure Mean 56 Pulse Ox 94 94 88 Oxygen Delivery Method Room Air Room Air Room Air Oxygen Flow Rate (L/min) 07/27/23 18:55 07/27/23 19:18 07/27/23 19:19 Temperature 99.2 F H Temperature Source Oral Pulse Rate 105 H 104 H Respiratory Rate 14 19 H Blood Pressure 89/46 L 75/36 L Blood Pressure Mean 60 49 Pulse Ox 96 96 Oxygen Delivery Method Nasal Cannula Nasal Cannula Nasal Cannula Oxygen Flow Rate (L/min) 2 2 2 07/27/23 20:37 07/27/23 19:37 07/27/23 21:30 Temperature 98.8 F 97.9 F Temperature Source Oral Temporal Pulse Rate 93 99 91 Respiratory Rate 16 15 16 Blood Pressure 113/64 84/55 L 84/59 L Blood Pressure Mean 80 64 67 Pulse Ox 93 95 Oxygen Delivery Method Nasal Cannula Nasal Cannula Nasal Cannula Oxygen Flow Rate (L/min) 2 2 4 MDM MDM MDM Narrative Medical decision making narrative: HISTORY OF PRESENT ILLNESS: 53-year-old female here with concern for wound VAC malfunction. States she was in the shower and forgot she had a wound VAC on she temporarily tugged on the wound VAC cord and apart. States her tried to tape the wound VAC back on but it was malfunctioning. She denies any other symptoms such as fever, chest pain, lightheadedness, dizziness, leg swelling, cough. REVIEW OF SYSTEMS: Pertinent positives: Wound VAC malfunction Pertinent negatives: Chest pain, shortness of breath, fever, cough PHYSICAL EXAM: Nursing triage notes reviewed, Vital signs reviewed Constitutional: please see mdm HENT: MMM Eyes: Pupils equal round and reactive to light, Extraocular muscles intact Neck: No stridor, no JVD, full neck ROM Lungs: Clear to auscultation, No wheezing or rales. No increased work of breathing, no conversational dyspnea, no accessory muscle use, no nasal flaring. No respiratory distress noted Heart: Regular rate and rhythm, No murmurs, No rubs and No gallops, 2+ distal pulses (radial, femoral, posterior tibial) in all extremities Abdomen: Soft, there is no tenderness, rigidity, rebound or guarding, no obvious peritoneal signs, no palpable pulsatile abdominal masses, no auscultated abdominal bruit : No CVAT Extremities: No edema Neuro: No focal neurological deficits, cranial nerves II through XII intact, 5/5 strength in all extremities. Intact sensation to light touch in all extremities, 2+ reflexes bilateral patella tendons. Normal gait. No ataxia. Skin: No rash or lesions noted MEDICAL DECISION MAKING: Chief Complaint: Wound VAC malfunction External records reviewed: Prior operation note reviewed. Underwent lumbar irrigation, debridement and wound exploration with application of a wound VAC on 07/25/[address] Hooks note Factors affecting care: Delayed wound healing, lumbar stenosis, type 2 diabetes, fibromyalgia, hyperlipidemia Social determinants of health: Current everyday smoker History obtained from others: The patient's Consults: Orthopedic surgery (Dr. Hooks) [facility] Narrative: Patient was initially hypotensive, tachycardic tachypneic puzzlingly asymptomatic with no lightheadedness, chest pain, shortness of breath, fever, cough. States I feel fine. I considered the following differential diagnosis: Postop infection, PE, pneumonia, anemia I consulted orthopedic surgery spoke to Dr. Hooks who suggested attempting to troubleshoot the wound VAC as best as possible if no solution could be had to turn the wound VAC off tape the area to secure the wound VAC and have the patient call her wound care nurse in the morning. Suggested there is no indication for emergent replacement of the patient's wound VAC he further stated would likely not have the equipment to do this in the ED. I was concerned that the patient's blood pressure, heart rate, low-grade fever in the postop setting could be hvac sales representative of several life or limb threatening etiologies including PE, pneumonia, dehydration, COVID, flu. I then obtained a broad lab and imaging workup to further elucidate the etiology of the patient's complaints. Patient was noted to be saturating at 87% which required a new 2 L oxygen requirement. She remained asymptomatic ALL IMAGES (IF OBTAINED) HAVE BEEN PERSONALLY REVIEWED AND INTERPRETED BY MYSELF. EKG showed sinus tachycardia, left axis deviation, no obvious STEMI, no signs of right heart strain CBC without leukocytosis, severe anemia, no thrombocytopenia. BMP with JESUS, no other significant electrolyte abnormalities, no anion gap Lactate mildly elevated consistent with endorgan hyperperfusion LFTs show no evidence of hepatobiliary pathology. CT of the chest shows evidence of pneumonitis versus infiltrate. No evidence of PE High-sensitivity troponin is negative, no evidence of myocardial ischemia BNP within normal limits suggestive of no increased myocyte stretch or transmural pressure The synthesis of the patient's history, physical exam, vital signs, labs images results of hypotension and hypoxia with visit to be explained. Patient did have mild JESUS which could be suggestive of dehydration causing hypotension. She may have evidence of early pneumonia given recent intubation for her surgery. She was given broad-spectrum antibiotics given elevated lactate and concern for source of infection. She was given 2 L of IV fluids. Walking pulse ox attempted patient desaturated to the 70s per nursing report. Given abnormal vital signs she will be admitted to the PCU for ongoing observation, fluids agitation, oxygen therapy and further evaluation. The patient and/or family, caregivers express understanding. The patient and/or family, caregivers agrees with the plan. Shared decision making: I will have a discussion with the patient and or visitors regarding risk/benefits of further testing or admission. They will be made aware of of the risk/benefits inherent in this decision they will be given the opportunity to voice understanding. Total critical care time today provided was at least 0 minutes. This excludes separately billable procedures. Critical care time (if documented) is secondary to the patient having high probability of clinically significant/life threatening deterioration in the patient's condition which required my urgent intervention. Impression: 1. Hypotension 2. Hypoxia 3. JESUS 4. Pneumonitis versus pneumonia Dispo: Admit to PCU Lab Data Labs: Laboratory Results - last 24 hr 07/27/23 19:10 WBC 6.8 RBC 4.74 Hgb 13.5 Hct 43.3 MCV 91.4 MCH 28.5 MCHC 31.2 L RDW Std Deviation 52.3 H RDW Coeff of Paolo 15.7 H Plt Count 232 MPV 10.0 Immature Gran % (Auto) 0.300 Neut % (Auto) 48.1 Lymph % (Auto) 39.1 [place] % (Auto) 8.5 Eos % (Auto) 3.1 Baso % (Auto) 0.9 Absolute Neuts (auto) 3.3 Absolute Lymphs (auto) 2.67 Nucleated RBC % 0 PT 13.1 INR 1.0 APTT 27.2 Sodium 137 Potassium 4.0 Chloride 106 Carbon Dioxide 26.0 Anion Gap 5 BUN 14 Creatinine 1.37 H Estim Creat Clear Calc 39.74 Est GFR (MDRD) Af Amer 52 L Est GFR (MDRD) Non-Af 43 L BUN/Creatinine Ratio 10.2 Glucose 88 Lactic Acid 2.1 H* Calcium 8.6 Total Bilirubin 0.20 AST 18 ALT 20 Alkaline Phosphatase 105 Troponin I High Sens 4 B-Natriuretic Peptide < 2.0 Total Protein 7.0 Albumin 3.0 L Globulin 4.0 Albumin/Globulin Ratio 0.8 L Radiography Diagnostic Testing: Clinical Impression(s) from Imaging Studies Chest CTA 07/27/23 19:12 IMPRESSION: Negative CTA chest examination, without a demonstrated pulmonary embolism or arterial dissection. Multifocal multilobar atelectasis with underlying small airway disease versus pneumonitis not excluded. No pleural effusion. No pneumothorax. Electronically Signed: Heidi Singh MD at 21:17 EST , Discharge Plan Dx/Rx/DC Orders Clinical Impression: Acute hypotension Disposition Disposition: Acute Care [facility]
--- NOTE | 2023-07-27 19:12 | CT_ITS ---
STUDY: CTA CHEST REASON FOR EXAM: Female, 53 years old. hypoxia post surgery r/o PE RADIATION DOSAGE (If Supplied By Facility): CTDIvol = ( 16.22 ) mGy, DLP = ( 518.66 ) mGycm TECHNIQUE: The examination was performed with the intravenous administration of IV 100mL Isovue-370. Post-processing of the angiographic images was performed, with multiplanar reformation and 3D reconstruction. Individualized dose optimization techniques were used for this CT. COMPARISON: None. FINDINGS: Normal enhancement of the main pulmonary artery and right and left pulmonary arteries. Normal enhancement of the bilateral peripheral pulmonary arteries. There is no demonstrated pulmonary embolism. There is mild atherosclerotic calcification of the aortic arch with tortuosity. There is no demonstrated aortic dissection. Normal cardiac size with coronary artery calcifications. Normal mediastinum. Normal hilar regions. Normal visualized trachea and bronchi. The lungs are normally expanded. There is multilobar atelectasis involving the right middle lobe, lingular lobe and bilateral lower lobes. There are small areas of mild groundglass opacities versus mosaic pattern scattered within the lung parenchyma suggestive of small airway disease versus superimposed pneumonitis. Normal pleura. Status post incision with debridement and likely open wound along the posterior back, correlation with history recommended. There are degenerative changes of thoracic spine. Normal visualized upper abdomen. CT/CTA Chest W/WO Contrast IMPRESSION: Negative CTA chest examination, without a demonstrated pulmonary embolism or arterial dissection. Multifocal multilobar atelectasis with underlying small airway disease versus pneumonitis not excluded. No pleural effusion. No pneumothorax. Electronically Signed: Heidi Singh MD at 21:17 EST ,
[2023-07-27] MEDS: 0.9% Normal Saline (1000mL) 1,000 ML 999 ML IV ×2 (19:15→20:33)
[2023-07-27 19:28] LABS: Absolute Lymphocyte Count 2.67 X10^3/uL (0.83-4.51); Absolute Neutrophil Count 3.3 X10^3/uL (2.0-7.7); Basophil# 0.06 X10^3/uL; Basophil% 0.9 % (0-1); Eosinophil# 0.21 X10^3/uL; Eosinophils% 3.1 % (0-5); Hematocrit 43.3 % (37-47); Hemoglobin 13.5 g/dL (12.0-15.0); Lymphocyte # 2.67 X10^3/ul (0.83-4.51); Lymphocyte % 39.1 % (19-41); Mean Corp Hgb Conc 31.2 g/dL (32-36); Mean Corpuscular Hgb 28.5 pg (27.0-32.0); Mean Corpuscular Volume 91.4 fL (81-99); Monocyte# 0.58 X10^3/uL; Monocyte% 8.5 % (0-10); NRBC Flagged by Analyzer 0 % (0-5); Neutrophil # 3.28 X10^3/uL (2.7-7.7); Neutrophil % 48.1 % (47-70); Platelet Count 232 K/mm3 (150-450); RBC Distribution Width CV 15.7 % (11.6-14.6); RBC Distribution Width SD 52.3 fl (35.1-43.9); Red Blood Count 4.74 M/mm3 (4.2-5.4); White Blood Count 6.8 K/mm3 (4.4-11.0)
[2023-07-27 19:38] LABS: Prothrombin Time (Protime)PT. 13.1 SECONDS (11.7-14.9)
[2023-07-27 19:39] LABS: Partial Thromboplast Time 27.2 Seconds (24.1-36.2)
[2023-07-27 19:51] LABS: ALB/GLOB Ratio 0.8 RATIO (0.9-2.4); AST(SGOT) 18 U/L (15-37); Alanine Aminotransfer ALT/SGPT 20 U/L (13-56); Alkaline Phosphatase 105 U/L (45-117); Anion Gap 5 (5-15); BUN 14 mg/dL (7-18); BUN/Creat Ratio 10.2 RATIO (10-20); Calcium,Total 8.6 mg/dL (8.5-10.1); Chloride 106 mmol/L (98-107); Creatinine, Serum 1.37 mg/dL (0.55-1.02); EST Glomerular Filtration Rate 43 mL/min (>60); Est Glom Filt Rate - Afr Amer 52 mL/min (>60); Estimated Creatinine Clearance 39.74 ml/min; Glucose 88 mg/dL (74-106); Sodium Level 137 mmol/L (136-145)
[2023-07-27 19:54] LABS: Lactic Acid 2.1 mmol/L (0.4-1.9)
--- NOTE | 2023-07-27 20:45 | ED.RN ---
attempted to void but unable
[2023-07-27 20:46] LABS: BNP,B-Type NATRIURETIC PEPTIDE < 2.0 pg/mL (0-100)
[2023-07-27 21:09] LABS: Troponin-I HS 4 pg/mL (3.0-54.0)
[2023-07-27] MEDS: Ketorolac 15 MG/ML Vial IV (21:28)
[2023-07-27] MEDS: Piperacil/Tazobactam 4.5 GM in 0.9% Normal Saline (100mL MB+) 100 ML IV (22:35)
[2023-07-27 22:42] LABS: Bacteria 0 SEEN /hpf (None Seen); Mucous, Urine 0 SEEN /hpf (<or=2+); Red Blood Cells-Urine 0 SEEN /hpf (0-5); White Blood Cells 0 SEEN /hpf (0-5)
[2023-07-27 22:44] LABS: Color, Urine Yellow (Yellow); Glucose, Dipstick Normal (Normal); Ketone-Dipstick Negative (Negative); Leukocyte Esterase-Dipstick Negative /ul (Negative); Nitrite-Dipstick Negative (Negative); Occult Blood-Urine 10 /ul (Negative); Protein-Dipstick 15 mg/dl (Negative); Urine Bilirubin Dipstick Negative (Negative); Urine Clarity Clear (Clear); Urine Urobilinogen 4 mg/dl (Normal)
[2023-07-27 22:52] LABS: Squamous Epithelial Cells - UA 0-5 SEEN /hpf (5-10)
[2023-07-27 23:22] LABS: Reflex Lactate? Y
[2023-07-28] VITALS (13 sets, daily range): BP systolic 76–124; BP diastolic 42–80; PULSE 72–88; RESP 16; TEMP 36.6–36.7; O2SAT 89–97
--- NOTE | 2023-07-28 00:21 | PCM.HP.STD ---
HPI - General General Date of Admission: 07/27/23 Date of Service: 07/28/23 Chief Complaint: Displaced wound VAC HPI Narrative JAYDEN JACOBSON, is a 53 F who presents to the emergency department with a displaced wound VAC for a lubar wound following spinal fusion surgery. She unknowingly displaced her wound VAC while taking a bath after her Thanksgiving dinner tonight. At the time of her presentation in the ED she was hypotensive and her oxygen saturation was in the high 80s. For this she was started on IV fluids and is presently on 2 L of oxygen via nasal cannula. The reason for her hypotension and hypoxia are not known. Per the patient, she feels well, no fever, anorexia, malaise, no changes in her appetite. She underwent lumbar spinal fusion surgery back in May for chronic back pain, since then her mobility has been drastically reduced. She has been taking opioid medications at home for her pain. Has a history of TEOFILO and is on BiPAP. Smokes about 1 pack a day, occasional marijuana use, occasional alcohol use. No other drug use. [facility] Medical History (Updated 07/28/23 @ 00:[address] Kenzie Selby MD) ADHD Alcohol use Anxiety Arthritis BiPAP (biphasic positive airway pressure) dependence [facility] Cardiology follow-up encounter Depression Diabetes Gastric reflux Gastroparesis High cholesterol History of diverticulitis History of echocardiogram History of edema History of heart attack History of IBS History of renal disease History of stress test Hypertension Marijuana use Migraine headache PONV (postoperative nausea and vomiting) Shortness of breath on exertion Sleep apnea Smoker Wears glasses Home Medications cyclobenzaprine 10 mg tablet 10 mg PO TID muscle relaxer 04/24/23 [History Last Taken 05/18/23 05:00] desvenlafaxine succinate 50 mg tablet,extended release 24 hr (Pristiq) 50 mg PO DAILY DEPRESSION 04/24/23 [History Last Taken 07/25/23] lisinopril 5 mg tablet 2.5 mg PO QHS HTN 04/24/23 [History Last Taken 05/17/23 20:00] methylphenidate HCl 20 mg tablet (Ritalin) 20 mg PO DAILY ADHD 04/24/23 [History Last Taken 05/18/23 05:00] metoclopramide HCl 10 mg tablet 10 mg PO TID GASTROPARESIS 04/24/23 [History Last Taken 07/25/23] metoprolol succinate 25 mg tablet,extended release 24 hr 12.5 mg PO QHS HTN 04/24/23 [History Last Taken 05/17/23 20:00] nitroglycerin 0.4 mg sublingual tablet 0.4 mg sublingual Q5M PRN chest pain 04/24/23 [History Last Taken Unknown] ondansetron HCl 8 mg tablet 8 mg PO TID 04/24/23 [History Last Taken 05/18/23 05:00] pantoprazole 40 mg tablet,delayed release 40 mg PO QHS GERD 04/24/23 [History Last Taken 05/17/23 20:00] pregabalin 300 mg capsule (Lyrica) 300 mg PO BID FIBROMYALGIA 04/24/23 [History Last Taken 07/25/23] rosuvastatin 40 mg tablet (Crestor) 40 mg PO DAILY HLD 04/24/23 [History Last Taken 07/25/23] semaglutide 7 mg tablet (Rybelsus) 7 mg PO DAILY DIABETES 04/24/23 [History Last Taken 07/25/23] tenapanor 50 mg tablet (Ibsrela) 50 mg PO BID IBSC 04/24/23 [History Last Taken 07/25/23] albuterol sulfate 90 mcg/actuation aerosol inhaler 2 puff inhalation Q4H 07/24/23 [History Last Taken Unknown] oxycodone-acetaminophen 5 mg-325 mg tablet 1 tab PO Q6H PRN pain 07/24/23 [History Last Taken Unknown] sulfamethoxazole 800 mg-trimethoprim 160 mg tablet 1 tab PO BID 07/24/23 [History Last Taken Unknown] Allergy/AdvReac Type Severity Reaction Status Date / Time magnesium salicylate Allergy Swelling Verified 07/27/23 18:37 Surgical History History of History of cholecystectomy History of colonoscopy History of coronary artery stent placement History of gastric surgery History of hysterectomy History of lumbar fusion History of umbilical hernia repair Social History Smoking Status: Current every day smoker tobacco type: cigarettes ROS Constitutional Constitutional: Denies fatigue, fever(s), malaise, night sweats or weakness Cardiovascular Cardiovascular: Denies chest pain or dyspnea on exertion Respiratory/Chest Respiratory/Chest: Denies cough, excessive phlegm production, hemoptysis or productive cough Gastrointestinal Gastrointestinal: Reports constipation; Denies abdominal pain, coffee ground emesis or diarrhea Psychiatric Psychiatric: Denies other Vital Signs Vital Signs Vital Signs: 07/27/23 18:38 07/27/23 18:50 07/27/23 18:54 Temperature 97.2 F L Temperature Source Temporal Pulse Rate 111 H 105 H Respiratory Rate 20 H 16 Blood Pressure 77/46 L Blood Pressure Mean 56 Blood Pressure Location Pulse Ox 94 94 88 Oxygen Delivery Method Room Air Room Air Room Air Oxygen Flow Rate (L/min) 07/27/23 18:55 07/27/23 19:18 07/27/23 19:19 Temperature 99.2 F H Temperature Source Oral Pulse Rate 105 H 104 H Respiratory Rate 14 19 H Blood Pressure 89/46 L 75/36 L Blood Pressure Mean 60 49 Blood Pressure Location Pulse Ox 96 96 Oxygen Delivery Method Nasal Cannula Nasal Cannula Nasal Cannula Oxygen Flow Rate (L/min) 2 2 2 07/27/23 20:37 07/27/23 22:39 07/27/23 22:41 Temperature 98.8 F 98.5 F 98.5 F Temperature Source Oral Temporal Temporal Pulse Rate 93 86 88 Respiratory Rate 16 21 H 18 Blood Pressure 113/64 85/55 L 85/55 L Blood Pressure Mean 80 65 65 Blood Pressure Location Pulse Ox 82 94 Oxygen Delivery Method Nasal Cannula Room Air Nasal Cannula Oxygen Flow Rate (L/min) 2 4 07/27/23 19:37 07/27/23 21:30 07/27/23 22:09 Temperature 97.9 F 97.9 F Temperature Source Temporal Pulse Rate 99 91 92 Respiratory Rate 15 16 16 Blood Pressure 84/55 L 84/59 L 98/66 Blood Pressure Mean 64 67 76 Blood Pressure Location Pulse Ox 93 95 93 Oxygen Delivery Method Nasal Cannula Nasal Cannula Oxygen Flow Rate (L/min) 2 4 07/27/23 23:20 07/27/23 23:29 Temperature 97.9 F Temperature Source Oral Pulse Rate 85 Respiratory Rate 16 Blood Pressure 93/65 Blood Pressure Mean 74 Blood Pressure Location Right Forearm Pulse Ox 94 94 Oxygen Delivery Method Nasal Cannula Nasal Cannula Oxygen Flow Rate (L/min) 5 5 Weight Weight: 220 lb 14.451 oz Body Mass Index (BMI) 39.1 Physical Exam Const alert and oriented x3 General Appearance: cooperative HEENT normocephalic Eyes PERRL Neck no lymphadenopathy Resp normal respiratory effort Cardio regular rhythm and no JVD; Negative for regular rate GI normal to inspection, nondistended, normoactive bowel sounds and soft to palpation Extremity normal to inspection and full ROM Skin Skin Narrative: No localized tenderness over the spine wound. Neuro oriented x3 Results Medical Records Data Attestation: I reviewed the patient's medical records Lab / Micro Data Attestation: I reviewed the patient's lab results. Lab results narrative: There is no leukocytosis 07/27/23 19:10 07/27/23 19:10 Labs: Laboratory Results - last 24 hr 07/27/23 19:10: WBC 6.8, RBC 4.74, Hgb 13.5, Hct 43.3, MCV 91.4, MCH 28.5, MCHC 31.2 L, RDW Std Deviation 52.3 H, RDW Coeff of Paolo 15.7 H, Plt Count 232, MPV 10.0, Immature Gran % (Auto) 0.300, Neut % (Auto) 48.1, Lymph % (Auto) 39.1, [place] % (Auto) 8.5, Eos % (Auto) 3.1, Baso % (Auto) 0.9, Absolute Neuts (auto) 3.3, Absolute Lymphs (auto) 2.67, Nucleated RBC % 0, PT 13.1, INR 1.0, APTT 27.2, Sodium 137, Potassium 4.0, Chloride 106, Carbon Dioxide 26.0, Anion Gap 5, BUN 14, Creatinine 1.37 H, Estim Creat Clear Calc 39.74, Est GFR (MDRD) Af Amer 52 L, Est GFR (MDRD) Non-Af 43 L, BUN/Creatinine Ratio 10.2, Glucose 88, Lactic Acid 2.1 H*, Calcium 8.6, Total Bilirubin 0.20, AST 18, ALT 20, Alkaline Phosphatase 105, Troponin I High Sens 4, B-Natriuretic Peptide < 2.0, Total Protein 7.0, Albumin 3.0 L, Globulin 4.0, Albumin/Globulin Ratio 0.8 L 07/27/23 22:25: Urine Color Yellow, Urine Clarity Clear, Urine pH 7.0, Ur Specific [place] 1.010, Urine Protein 15 H, Urine Glucose (UA) Normal, Urine Ketones Negative, Urine Occult Blood 10 H, Urine Nitrite Negative, Urine Bilirubin Negative, Urine Urobilinogen 4 H, Ur Leukocyte Esterase Negative, Urine RBC 0 SEEN, Urine WBC 0 SEEN, Ur Squamous Epith Cells 0-5 SEEN, Urine Bacteria 0 SEEN, Urine Mucus 0 SEEN Micro: Microbiology 07/27/23 19:37 Nasal Secretion SARS-CoV-2 & FLU Antigen (Rapid) - Final Imagaing Radiology Impression Chest CTA 07/27/23 19:12 IMPRESSION: Negative CTA chest examination, without a demonstrated pulmonary embolism or arterial dissection. Multifocal multilobar atelectasis with underlying small airway disease versus pneumonitis not excluded. No pleural effusion. No pneumothorax. Electronically Signed: Heidi Singh MD at 21:17 EST , Assessment & Plan Assessment/Plan (1) Acute hypotension: PLAN: Reason for acute hypotension, hypoxemia is not clearly understood. Given the delayed surgical wound healing, displaced wound VAC, significant reduction in mobility following the surgery, the wound site infection is the most likely source. There is a possibility of underlying osteomyelitis and if there is no improvement with fluid therapy will consider MRI spine for further evaluation. We will send blood cultures, urine cultures. Start her on zoysn and vancomycin. (2) Delayed surgical wound healing: PLAN: We will reconsult orthopedics tomorrow morning to assess the wound infection. Possibly consider wound VAC replacement. The reason for her wound healing could be type 2 diabetes, delayed mobilization. (3) Type 2 diabetes mellitus: PLAN: HbA1c, random blood sugars tomorrow morning. Insulin nomogram for inpatient sugar controls. (4) Sepsis: PLAN: The patient is asymptomatic but given her hypotension, hypoxemia, mildly elevated lactate levels there is a possibility of sepsis. She was started on fluid therapy and we will start her on Zosyn plus vancomycin for the suspected wound site infection. Follow-up on blood cultures, urine culture. Charges/Coding Visit Charges Inpatient E&M: 12190 Init Hosp L2
[2023-07-28 00:27] LABS: Lactic Acid 0.9 mmol/L (0.4-1.9)
[2023-07-28] MEDS: 0.9% Normal Saline (1000mL) 1,000 ML 100 ML IV (00:51)
[2023-07-28] MEDS: Vancomycin HCl 1,500 MG in 0.9% Normal Saline (500mL Bag) 500 ML 250 MG IV (01:48)
[2023-07-28 02:53] LABS: Erythrocyte Sedimentation Rate 52 mm/hr (0-30)
[2023-07-28 05:01] LABS: Absolute Lymphocyte Count 2.27 X10^3/uL (0.83-4.51); Basophil# 0.05 X10^3/uL; Eosinophil# 0.19 X10^3/uL; Eosinophils% 3.8 % (0-5); Hematocrit 36.4 % (37-47); Hemoglobin 11.1 g/dL (12.0-15.0); Lymphocyte # 2.27 X10^3/ul (0.83-4.51); Lymphocyte % 45.8 % (19-41); Mean Corp Hgb Conc 30.5 g/dL (32-36); Mean Corpuscular Hgb 28.6 pg (27.0-32.0); Mean Corpuscular Volume 93.8 fL (81-99); Mean Platelet Vol. 9.8 fl (6.2-12.0); Monocyte# 0.45 X10^3/uL; Monocyte% 9.1 % (0-10); NRBC Flagged by Analyzer 0 % (0-5); Neutrophil # 1.98 X10^3/uL (2.7-7.7); Neutrophil % 39.9 % (47-70); Platelet Count 179 K/mm3 (150-450); RBC Distribution Width CV 15.9 % (11.6-14.6); RBC Distribution Width SD 54.7 fl (35.1-43.9); Red Blood Count 3.88 M/mm3 (4.2-5.4)
[2023-07-28 05:34] LABS: Lactic Acid 0.9 mmol/L (0.4-1.9)
[2023-07-28 05:39] LABS: ALB/GLOB Ratio 0.7 RATIO (0.9-2.4); AST(SGOT) 12 U/L (15-37); Alanine Aminotransfer ALT/SGPT 13 U/L (13-56); Albumin, Serum 2.2 g/dL (3.2-5.0); Alkaline Phosphatase 79 U/L (45-117); Anion Gap 4 (5-15); BUN 12 mg/dL (7-18); Calcium,Total 7.3 mg/dL (8.5-10.1); Chloride 112 mmol/L (98-107); Creatinine, Serum 0.92 mg/dL (0.55-1.02); EST Glomerular Filtration Rate 68 mL/min (>60); Est Glom Filt Rate - Afr Amer 82 mL/min (>60); Estimated Creatinine Clearance 59.17 ml/min; Globulin 3.1 g/dL (2.2-4.2); Glucose 90 mg/dL (74-106); Potassium 4.1 mmol/L (3.5-5.1); Protein, Total 5.3 g/dL (6.4-8.2); Sodium Level 140 mmol/L (136-145)
[2023-07-28 05:43] LABS: Thyroid Stim Hormone (TSH) 0.56 uIU/mL (0.358-3.74)
--- NOTE | 2023-07-28 05:51 | ECHOD_ITS ---
Reason For Study: Other Procedure This was a 2D Doppler, Color Flow transthoracic echocardiogram. Exam performed portable in patient room. Left Ventricle Normal size and thickness. The left ventricular ejection fraction is 65 %. Normal diastology for age. Right Ventricle Normal right ventricle. Atria The left and right atria are normal. Mitral Valve Mild-Moderate (1-2+) posteriorly directed mitral valve insufficiency. Tricuspid Valve Mild tricuspid valve insufficiency. Normal pulmonary artery pressure. Aortic Valve Trisinus/trileaflet aortic valve. Pulmonic Valve The pulmonic valve is not well visualized. Great Vessels Normal sized aortic root. Pericardium/Pleural Trivial pericardial effusion. Epicardial fat. MMode/2D Measurements & Calculations LVIDd: 4.9 cm IVSd: 0.91 cm Ao root diam: 3.6 cm LVIDs: 3.3 cm LVPWd: 0.98 cm LA dimension: 3.3 cm RVDd: 3.7 cm FS: 31.5 % LAV(MOD-bp): 47.1 ml LVAd ap4: 29.2 cm2 SV(MOD-sp4): 56.8 ml LAV(MOD-bp) Indexed: 23.4 ml/m2 LVLd ap4: 6.5 cm LAV(MOD-sp2): 48.0 ml EDV(MOD-sp4): 105.0 ml LAV(MOD-sp4): 46.1 ml EDV(sp4-el): 110.9 ml LVAs ap4: 18.0 cm2 LVLs ap4: 5.7 cm ESV(MOD-sp4): 48.1 ml ESV(sp4-el): 48.6 ml EF(MOD-sp4): 54.2 % EF(sp4-el): 56.2 % SV(sp4-el): 62.3 ml LA A4 area: 17.7 cm2 RA A4 area: 15.4 cm2 TAPSE: 1.8 cm Time Measurements MV dec time: 0.21 sec Doppler Measurements & Calculations MV E max aaron: 82.3 cm/sec Lat Peak E' Aaron: 8.1 cm/sec Med Peak E' Aaron: 10.2 cm/sec MV A max aaron: 99.5 cm/sec E/E' lat: 10.2 E/E' med: 8.1 MV E/A: 0.83 MV V2 max: 133.7 cm/sec MV P1/2t max aaron: 115.3 cm/sec Ao V2 max: 146.1 cm/sec MV max P.1 mmHg MV P1/2t: 80.7 msec Ao max P.6 mmHg MV V2 mean: 74.2 cm/sec MV dec slope: 418.4 cm/sec2 Ao V2 mean: 103.0 cm/sec MV mean P.6 mmHg Ao mean P.8 mmHg MV V2 VTI: 35.4 cm MVA(P1/2t): 2.7 cm2 Ao V2 VTI: 35.8 cm AV (velocity ratio): 0.77 LV V1 max: 107.4 cm/sec MR max aaron: 486.7 cm/sec PA V2 max: 82.1 cm/sec LV V1 max P.6 mmHg MR max P.7 mmHg LV V1 mean P.0 mmHg LV V1 mean: 82.6 cm/sec LV V1 VTI: 27.7 cm TR max aaron: 235.9 cm/sec TR max P.3 mmHg ECHO/Echo Complete Interpretation Summary The left ventricular ejection fraction is 65 %. Mild-Moderate (1-2+) posteriorly directed mitral valve insufficiency. Mild tricuspid valve insufficiency. Ordering Physician: Kenzie Selby Performed By: Johnathan Van RCS
[2023-07-28] MEDS: cycloBENZAPRine HCl 10 MG Tablet PO ×3 (06:08→21:56)
[2023-07-28] MEDS: Metoclopramide 10 MG Tablet PO ×3 (06:08→21:56)
[2023-07-28] MEDS: Piperacil/Tazobactam 3.375 GM in 0.9% Normal Saline (50mL MB+) 50 ML IV ×3 (06:10→21:58)
--- NOTE | 2023-07-28 07:49 | PN.HOSP_ITS ---
Reason for Visit Reason for Visit: Diagnoses Sepsis, unspecified organism (07/27/23) Type 2 diabetes mellitus without complications (07/27/23) Hypotension, unspecified (07/27/23) Other complications of procedures, not elsewhere classified, initial encounter (07/27/23) Objective Data Objective Data Vital Signs: Vital Signs Temp Pulse Resp BP Pulse Ox O2 Del Method O2 Flow Rate 98.0 F 81 16 99/65 96 High Flow 6 07/28/23 06:10 07/28/23 06:10 07/28/23 06:10 07/28/23 06:10 07/28/23 06:10 07/28/23 06:10 07/28/23 06:10 Oxygen Flow Rate (L/min) 6 Oxygen Delivery Method High Flow Weight: 220 lb 14.451 oz Body Mass Index (BMI) 39.1 Intake & Output: Intake and Output for Last 24 Hours 07/26/23 07/27/23 07/28/23 23:59 23:59 23:59 Intake Total 2099 / 2099 530 / 530 Balance 2099 / 2099 530 / 530 Lab / Micro Data 07/28/23 04:45 07/28/23 04:45 Labs: Laboratory Results - last 24 hr 07/27/23 19:10: WBC 6.8, RBC 4.74, Hgb 13.5, Hct 43.3, MCV 91.4, MCH 28.5, MCHC 31.2 L, RDW Std Deviation 52.3 H, RDW Coeff of Paolo 15.7 H, Plt Count 232, MPV 10.0, Immature Gran % (Auto) 0.300, Neut % (Auto) 48.1, Lymph % (Auto) 39.1, [place] % (Auto) 8.5, Eos % (Auto) 3.1, Baso % (Auto) 0.9, Absolute Neuts (auto) 3.3, Absolute Lymphs (auto) 2.67, Nucleated RBC % 0, PT 13.1, INR 1.0, APTT 27.2, Sodium 137, Potassium 4.0, Chloride 106, Carbon Dioxide 26.0, Anion Gap 5, BUN 14, Creatinine 1.37 H, Estim Creat Clear Calc 39.74, Est GFR (MDRD) Af Amer 52 L, Est GFR (MDRD) Non-Af 43 L, BUN/Creatinine Ratio 10.2, Glucose 88, Lactic Acid 2.1 H*, Calcium 8.6, Total Bilirubin 0.20, AST 18, ALT 20, Alkaline Phosphatase 105, Troponin I High Sens 4, B-Natriuretic Peptide < 2.0, Total Protein 7.0, Albumin 3.0 L, Globulin 4.0, Albumin/Globulin Ratio 0.8 L 07/27/23 22:25: Urine Color Yellow, Urine Clarity Clear, Urine pH 7.0, Ur S pecific [place] 1.010, Urine Protein 15 H, Urine Glucose (UA) Normal, Urine Ketones Negative, Urine Occult Blood 10 H, Urine Nitrite Negative, Urine B ilirubin Negative, Urine Urobilinogen 4 H, Ur Leukocyte Esterase Negative, Urine RBC 0 SEEN, Urine WBC 0 SEEN, Ur Squamous Epith Cells 0-5 SEEN, Urine Bacteria 0 SEEN, Urine Mucus 0 SEEN 07/27/23 23:48: Lactic Acid 0.9 07/28/23 04:45: WBC 5.0, RBC 3.88 L, Hgb 11.1 L, Hct 36.4 L, MCV 93.8, MCH 28.6, MCHC 30.5 L, RDW Std Deviation 54.7 H, RDW Coeff of [place]olo 15.9 H, Plt Count 179, MPV 9.8, Immature Gran % (Auto) 0.400, Neut % (Auto) 39.9 L, Lymph % (Auto) 45.8 H, [place] % (Auto) 9.1, Eos % (Auto) 3.8, Baso % (Auto) 1.0, Absolute Neuts (auto) 2.0, Absolute Lymphs (auto) 2.27, Nucleated RBC % 0, Sodium 140, Potassium 4.1, Chloride 112 H, Carbon Dioxide 24.0, Anion Gap 4 L, BUN 12, Creatinine 0.92, Estim Creat Clear Calc 59.17, Est GFR (MDRD) Af Amer 82, Est GFR (MDRD) Non-Af 68, BUN/Creatinine Ratio 13.0, Glucose 90, Lactic Acid 0.9, Calcium 7.3 L, Total Bilirubin 0.20, AST 12 L, ALT 13, Alkaline Phosphatase 79, Total Protein 5.3 L, Albumin 2.2 L, Globulin 3.1, Albumin/Globulin Ratio 0.7 L, TSH 0.56 07/28/23 19:10: ESR 52 H Micro: Microbiology 07/27/23 19:37 Nasal Secretion SARS-CoV-2 & FLU Antigen (Rapid) - Final Radiography Diagnostic Testing: Radiology Impression Chest CTA 07/27/23 19:12 IMPRESSION: Negative CTA chest examination, without a demonstrated pulmonary embolism or arterial dissection. Multifocal multilobar atelectasis with underlying small airway disease versus pneumonitis not excluded. No pleural effusion. No pneumothorax. Electronically Signed: Heidi Singh MD at 21:17 EST , Physical Exam Narrative Seen and examined. Patient was admitted with tachycardia, tachypnea and hypoxia. She states she is on oxygen on exertion at home but usually does not need it. She wears CPAP at home. She had back surgery by Dr. Hooks in May but later got complicated with wound infection which required incision debridement for abscess on past 07/25/2023. Wound VAC either not working or got detached. No fever. 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 Physical exam General: Alert, Oriented x3, Cooperative HEENT: Atraumatic, PERRLA, EOMI, Normocephalic Oral: No Gingival or Mucosal Lesions/ Ulcerations Neck: Supple, No JVD, Negative Carotid Bruits Lungs: Air entry diminished in bilateral lung bases. Bilateral slight wheezing and coarse crepitations. Cardiovascular: Regular rate, Regular Rhythm, Normal S1, Normal S2, No murmurs Abdomen: Bowel Sounds Present, Soft, Non Tender, Non-Distended : No renal angle tenderness. No suprapubic tenderness. Extremities: No edema, Capillary Refill Less than 3 Seconds Skin: Surgical wound over upper lumbar back. Musculoskeletal: No Tenderness to Palpation of Joints or Extremities Neurological: Cranial nerves II-XII grossly intact, DTR 2+/4. No acute focal neurological deficit. Psych/Mental Status: Normal Affect, Appropriate. Assessment & Plan Assessment/Plan (1) Acute hypotension: PLAN: Exact reason for acute hypotension is not clear. Besides patient hypoxic and had low pressures in the morning, exact cause is unclear but sepsis seems possibility patient does not look very sick or toxic. Patient had delayed surgical wound healing displaced wound VAC with recent surgery on 07/25/2023 for possible abscess after surgery. ID is consulted. blood cultures, urine cultures. Start her on zoysn and vancomycin. (2) Delayed surgical wound healing: PLAN: Patient is spine surgeon Dr. Kali Hooks is consulted to evaluate the wound. Possibly consider wound VAC replacement. (3) Type 2 diabetes mellitus: PLAN: HbA1c, random blood sugars tomorrow morning. Insulin nomogram for inp atient sugar controls. (4) Sepsis: PLAN: The patient is asymptomatic without dizziness or lightheadedness but given her hypotension, hypoxemia on 6 L of oxygen, mildly elevated lactate levels there was concern or possibility of sepsis during admission but patient clinically does not look very toxic or sick. Her blood pressure is improved. 2D echo shows EF 65% with mild MR, mild TR with normal diastolic for age.Elevated lactic acid may be secondary to hypoxia. Patient does not have significant leukocytosis or fever. Wound site also looks relatively well with no significant tenderness or limitation of movement. Follow-up on blood cultures, urine culture. ID is consulted. Sepsis Attestation Sepsis Attestation: Agree w/Sepsis Date exam was performed: 07/28/23 Time exam was performed: 12:58 Sepsis Organ Dysfunction Criteria Present: SBP < 90 mmHg or MAP < 65 mmHg and Lactic Acid > 2 mmol/L Supportive Findings: Patient was also hypoxic requiring 6 L of oxygen, tachypneic mild respiratory di stress. Fluid Resuscitation Fluid resuscitation indicated?: Yes Fluid Resuscitation ordered: 30 ml/kg fluid bolus ordered Amount of fluid ordered: 3,000 Sepsis Note Date exam was performed: 07/28/23 Time exam was performed: 12:57 Sepsis Attestation: Sepsis re-evaluation was performed Response to fluids: Fluid responsive hypotension Charges/Coding Visit Charges Inpatient E&M: 69313 Subs Hosp L2
[2023-07-28] MEDS: Smz/Tmp Ds Tablet 1 TABLET PO ×2 (08:18→17:43)
--- NOTE | 2023-07-28 09:33 | CON.PCM.CC_ITS ---
Assessment & Plan Assessment/Plan (1) Acute hypotension: (2) Hypoxia: (3) Delayed surgical wound healing: QUALIFIERS: Encounter type: subsequent encounter Qualified Code( s): T81.89XD - Other complications of procedures, not elsewhere classified, subsequent encounter PLAN: Plan RECOMMENDATIONS: 1. Encourage incentive spirometer 2. Await echocardiogram 3. Continue empiric antibiotics pending cultures 4. Hold metoprolol for now 5. Possible room air ABG tomorrow 6. Initiate home TEOFILO therapy with all sleep 7. No need to transfer to intensive care at this time IMPRESSIONS: 1. Acute hypotension Unclear etiology. Patient does not have any significant leukocytosis or fever. Elevated lactate could be secondary to lower oxygen. Wound site looks relatively well to me and patient does not have significant limitation to s uggest discitis. Could have an MRI of the spine to reevaluate. Cultures have been sent. Patient currently on empiric antibiotics at this time. Will check orthostatics and echocardiogram as possible secondary causes. Patient appears to be mentating well despite lower blood pressures. Patient is on Lopressor and lisinopril at home, which will need to be held. Patient is also on Flexeril, Reglan and Zofran so polypharmacy would be a concern. Patient is currently mentating well, so it is likely not necessary to transfer to intensive care for further evaluation at this time 2. Hypoxia Unclear etiology at this time. Patient does have a long smoking history, but does not have a significant polycythemia or clubbing to suggest chronic hypoxia. Patient is on narcotics in the setting of TEOFILO and this could be leading to lower saturations. CTA of the chest was relatively unremarkable except for subsegmental atelectasis, which could be seen in early COPD, hy poventilation or early onset pneumonia. Patient does not have a clinical scenario suggestive of pneumonia at this time. Patient will be encouraged to use incentive spirometer and activity as tolerated. Patient may require a room air ABG to evaluate for hypoventilation as an etiology. Patient does have an echocardiogram scheduled, so pulmonary artery pressures may be helpful. BNP is not suggestive of congestive heart failure, but fluid overload could lead to findings on CT scan. 3. Type 2 diabetes mellitus/obesity/TEOFILO/fibromyalgia/hypertension/IBD/chronic pain syndrome Complicates care, management, recovery and prognosis. Patient definitely needs to be on her sleep apnea therapy with any sleep given concomitant narcotics. Defer to hospitalist on IBD and diabetes management. Antihypertensives will need to be held given problem #1. Ideally, patient will come off of narcotics if possible as this could be complicating both problems 1 and 2. HPI Consult Data Date of Consult: 07/28/23 HPI Narrative HPI Narrative: JAYDEN JACOBSON is a 53 F, with past medical history listed below, who presents to [facility] on 07[facility]27[facility]23 secondary to a wound check. Patient reportedly has recently had a lumbar back surgery and had poor wound healing. Patient subsequently was placed on a wound VAC to help with healing. Patient reportedly had taken a bath and this became dislodged, so she came in for an evaluation. Patient reportedly was feeling of her usual health and came in just for an evaluation of her wound VAC. On arrival to the emergency room, patient was afebrile, tachycardic at 111 bpm and hypotensive at 77/46. Patient reportedly was saturating 94% on room air at that time. Laboratory workup at that time showed a white blood cell count of 6.8, hemoglobin of 13.5 and platelets of 232. Coagulation studies were within normal limits. Chemistry showed a slightly elevated creatinine of 1.37 with a lactate of 2.1 and a BNP less than 2. Liver enzymes were within normal limits. A CT of the chest was obtained showing only multifocal subsegmental atelectasis with no pleural effusion, pneumothorax or PE. Given patient's hypotension, patient was given 2 L of IV fluids but then started to desaturate with ambulation into the 70s. Patient was brought in for observation given abn ormalities. Since being admitted, patient's blood pressures have remained marginal. Patient did not get started on any pressors, but a pulmonary consult was obtained for evaluation of possible transfer to the intensive care unit. On my evaluation, patient was resting comfortably on nasal cannula. Patient woke up immediately and was able to answer all my questions appropriately. Patient did not report any current chest pain, abdominal pain, nausea or vomiting. Patient did not have any pain in her back, but did state that she was concerned that she could slow down her wound healing with a displaced wound VAC. Patient did not report any trauma. Patient does state that she has been using 2-4 Percocets per day, which is new for her. Patient does carry diagnosis of obstructive sleep apnea and states she has been compliant with therapy. Patient states that she has had sleep apnea for over 20 years, but estimates that her last titration study was approximately 5 years ago. Patient is not aware of her settings, but describes something like an AutoPap. Patient does state that she has been had of a long smoking history, but has never seen a pulmonary physician or had a PFT previously. Patient states she does have an albuterol inhaler, but only uses this during episodes of URI. Patient has not reported any significant lower extremity edema and has not had any palpitations or chest pain in the last 2 weeks. Patient does state that she is required supplemental oxygen in the hospital perioperatively previously, but does not have supplemental oxygen at home. Review of systems otherwise negative from a constitutional, HEENT, respiratory, cardiovascular, GI, genitourinary, musculoskeletal, skin, neurologic, psychiatric and hematologic system unless stated above. [facility] Medical History ADHD Alcohol use Anxiety Arthritis BiPAP (biphasic positive airway pressure) dependence [facility] Cardiology follow-up encounter Depression Diabetes Gastric reflux Gastroparesis High cholesterol History of diverticulitis History of echocardiogram History of edema History of heart attack History of IBS History of renal disease History of stress test Hypertension Marijuana use Migraine headache PONV (postoperative nausea and vomiting) Shortness of breath on exertion Sleep apnea Smoker Wears glasses Home Medications cyclobenzaprine 10 mg tablet 10 mg PO TID muscle relaxer 04/24/23 [History Last Taken 05/18/23 05:00] desvenlafaxine succinate 50 mg tablet,extended release 24 hr (Pristiq) 50 mg PO DAILY DEPRESSION 04/24/23 [History Last Taken 07/25/23] lisinopril 5 mg tablet 2.5 mg PO QHS HTN 04/24/23 [History Last Taken 05/17/23 20:00] methylphenidate HCl 20 mg tablet (Ritalin) 20 mg PO DAILY ADHD 04/24/23 [History Last Taken 05/18/23 05:00] metoclopramide HCl 10 mg tablet 10 mg PO TID GASTROPARESIS 04/24/23 [History Last Taken 07/25/23] metoprolol succinate 25 mg tablet,extended release 24 hr 12.5 mg PO QHS HTN [History Last Taken 05/17/23 20:00] nitroglycerin 0.4 mg sublingual tablet 0.4 mg sublingual Q5M PRN chest pain 04/24/23 [History Last Taken Unknown] ondansetron HCl 8 mg tablet 8 mg PO TID 04/24/23 [History Last Taken 05/18/23 05:00] pantoprazole 40 mg tablet,delayed release 40 mg PO QHS GERD 04/24/23 [History Last Taken 05/17/23 20:00] pregabalin 300 mg capsule (Lyrica) 300 mg PO BID FIBROMYALGIA 04/24/23 [History Last Taken 07/25/23] rosuvastatin 40 mg tablet (Crestor) 40 mg PO DAILY HLD 04/24/23 [History Last Taken 07/25/23] semaglutide 7 mg tablet (Rybelsus) 7 mg PO DAILY DIABETES 04/24/23 [History Last Taken 07/25/23] tenapanor 50 mg tablet (Ibsrela) 50 mg PO BID IBSC 04/24/23 [History Last Taken 07/25/23] albuterol sulfate 90 mcg/actuation aerosol inhaler 2 puff inhalation Q4H 07/24/23 [History Last Taken Unknown] oxycodone-acetaminophen 5 mg-325 mg tablet 1 tab PO Q6H PRN pain 07/24/23 [History Last Taken Unknown] sulfamethoxazole 800 mg-trimethoprim 160 mg tablet 1 tab PO BID 07/24/23 [History Last Taken Unknown] Allergy/AdvReac Type Severity Reaction Status Date / Time magnesium salicylate Allergy Swelling Verified 07/27/23 18:37 Surgical History History of History of cholecystectomy History of colonoscopy History of coronary artery stent placement History of gastric surgery History of hysterectomy History of lumbar fusion History of umbilical hernia repair Social History Smoking Status: Current every day smoker tobacco type: cigarettes ROS ROS Narrative See HPI Physical Exam Const alert and oriented x3 Constitutional Narrative: Obese. No conversational dyspnea. General Appearance: cooperative HEENT normocephalic, head/scalp atraumatic and moist oral mucous membranes Eyes PERRL, EOMs intact bilaterally, conjunctivae normal and no scleral icterus Eyes Narrative: Glasses in place Neck no lymphadenopathy Chest inspection of chest normal Resp normal respiratory effort Effort and Inspection: Negative for tachypneic Auscultation: clear to auscultation bilaterally; Negative for rales, rhonchi or wheezes Cardio regular rhythm, S1 normal heart sound, S2 normal heart sound, no murmurs, no rub, no gallops and no JVD; Negative for regular rate GI normal to inspection, nondistended, normoactive bowel sounds and soft to palpation Extremity normal to inspection and full ROM General Extremity: Negative for clubbing or edema Skin Skin Narrative: No localized tenderness over the spine wound. No surrounding erythema noted Neuro oriented x3, CN's II-XII intact bilaterally, moves all extremities and no focal motor deficits Neuro Narrative: Able to roll around the bed without assistance Psych cooperative and affect normal Psych Narrative: No issues with recall noted Medical Records Data Attestation: I reviewed the patient's medical records Medical records narrative: Reviewed medical records. Patient does not have a PFT or echocardiogram available for review. Patient does not have any history of positive cultures in the past. Personal review shows little changes on CTA of the chest compared to 2018. Patient does appear to have approximately a 10 pound weight gain since 2018. Lab / Micro Data Attestation: I reviewed the patient's lab results. 07/28/23 04:45 07/28/23 04:45 Labs: Laboratory Results - last 24 hr 07/27/23 19:10: WBC 6.8, RBC 4.74, Hgb 13.5, Hct 43.3, MCV 91.4, MCH 28.5, MCHC 31.2 L, RDW Std Deviation 52.3 H, RDW Coeff of Paolo 15.7 H, Plt Count 232, MPV 10.0, Immature Gran % (Auto) 0.300, Neut % (Auto) 48.1, Lymph % (Auto) 39.1, [place] % (Auto) 8.5, Eos % (Auto) 3.1, Baso % (Auto) 0.9, Absolute Neuts (auto) 3.3, Absolute Lymphs (auto) 2.67, Nucleated RBC % 0, PT 13.1, INR 1.0, APTT 27.2, Sodium 137, Potassium 4.0, Chloride 106, Carbon Dioxide 26.0, Anion Gap 5, BUN 14, Creatinine 1.37 H, Estim Creat Clear Calc 39.74, Est GFR (MDRD) Af Amer 52 L, Est GFR (MDRD) Non-Af 43 L, BUN/Creatinine Ratio 10.2, Glucose 88, Lactic Acid 2.1 H*, Calcium 8.6, Total Bilirubin 0.20, AST 18, ALT 20, Alkaline P hosphatase 105, Troponin I High Sens 4, B-Natriuretic Peptide < 2.0, Total Protein 7.0, Albumin 3.0 L, Globulin 4.0, Albumin/Globulin Ratio 0.8 L 07/27/23 22:25: Urine Color Yellow, Urine Clarity Clear, Urine pH 7.0, Ur Specific [place] 1.010, Urine Protein 15 H, Urine Glucose (UA) Normal, Urine Ketones Negative, Urine Occult Blood 10 H, Urine Nitrite Negative, Urine Bilirubin Negative, Urine Urobilinogen 4 H, Ur Leukocyte Esterase Negative, Urine RBC 0 SEEN, Urine WBC 0 SEEN, Ur Squamous Epith Cells 0-5 SEEN, Urine Bacteria 0 SEEN, Urine Mucus 0 SEEN 07/27/23 23:48: Lactic Acid 0.9 07/28/23 04:45: WBC 5.0, RBC 3.88 L, Hgb 11.1 L, Hct 36.4 L, MCV 93.8, MCH 28.6, MCHC 30.5 L, RDW Std Deviation 54.7 H, RDW Coeff of Paolo 15.9 H, Plt Count 179, MPV 9.8, Immature Gran % (Auto) 0.400, Neut % (Auto) 39.9 L, Lymph % (Auto) 45.8 H, [place] % (Auto) 9.1, Eos % (Auto) 3.8, Baso % (Auto) 1.0, Absolute Neuts (auto) 2.0, Absolute Lymphs (auto) 2.27, Nucleated RBC % 0, Sodium 140, Potassium 4.1, Chloride 112 H, Carbon Dioxide 24.0, Anion Gap 4 L, BUN 12, Creatinine 0.92, Estim Creat Clear Calc 59.17, Est GFR (MDRD) Af Amer 82, Est GFR (MDRD) Non-Af 68, BUN/Creatinine Ratio 13.0, Glucose 90, Lactic Acid 0.9, Calcium 7.3 L, Total Bilirubin 0.20, AST 12 L, ALT 13, Alkaline Phosphatase 79, Total Protein 5.3 L, Albumin 2.2 L, Globulin 3.1, Albumin/Globulin Ratio 0.7 L, TSH 0.56, Cortisol 16.70 07/28/23 19:10: ESR 52 H Micro: Microbiology 07/27/23 19:37 Nasal Secretion SARS-CoV-2 & FLU Antigen (Rapid) - Final ABG Data ABG results: No previous ABG results available for review Rhythm Strip Rhythm Strip: Sinus Rhythm Rate: 81 Ectopy: None Imagaing Radiology Impression Chest CTA 07/27/23 19:12 IMPRESSION: Negative CTA chest examination, without a demonstrated pulmonary embolism or arterial dissection. Multifocal multilobar atelectasis with underlying small airway disease versus pneumonitis not excluded. No pleural effusion. No pneumothorax. Electronically Signed: Heidi Singh MD at 21:17 EST , Charges/Coding Visit Charges Inpatient E&M: 69938 Init Hosp L3
[2023-07-28] MEDS: Venlafaxine XR 37.5 MG Capsule PO (09:41)
[2023-07-28] MEDS: Enoxaparin 40 MG/0.4 ML Syringe SC (09:41)
[2023-07-28] MEDS: Pregabalin 75 MG Capsule 300 MG PO ×2 (09:44→21:56)
--- NOTE | 2023-07-28 10:15 | CASEMGMT ---
TRACEY RAYMOND Assessment: RN SEGUNDO to room to meet w/pt for initial transition planning/care coordination assessment. RN SEGUNDO introduced self and role at [facility], pt voices understanding and consents to assessment. Pt is A/O and answers all questions appropriately at this time. Pt lying in bed in no distress. Care providers, pharmacy, and demographics verified/updated. PCP:Mark Specialists:[place], [place]; [place], cardio Preferred Pharmacy: [facility] [place] Insurance: [employer] Prescription Benefit: yes LNOK: Ranjith Kenny, Living Arrangements: Pt lives with and dtr in a two story home with 4 steps to enter. FFSU. Pt denies concerns at home. Pt states she is independent w/ADL's and manages her own medications. and dtr can assist pt as needed. Transportation: Pt and both drive DME: Pt has a FWW, straight cane and CPAP at home. She does not have home O2. Discussed DME companies should she qualify for home O2 @ discharge. Pt denies having preference of DME co and states is okay w/[employer]. She does not have a pulse ox and states she can afford to get one. HHC/SNF:Pt denies hx SNF. Pt states she was just set up /[facility] and they were scheduled to come to her home this AM for initial visit. She would like to still have [facility] @ discharge and declines wanting list of other HHC options. Damian @ [facility] aware pt has been admitted to [facility] and that she would still like [facility] @ discharge. New HHC order entered for SN. Pt states no concerns with going home at time of dc. Pt states no further concerns/needs. CM to follow. Advised pt to ask CM if any further question/concerns/needs arise, voices understanding. Goal: Home w/ [facility] for SN: wound vac care/dressing changes Follow for any oxygen needs Josue LY RN, CM
--- NOTE | 2023-07-28 14:42 | CON.PCM.ID_ITS ---
Assessment & Plan Assessment/Plan (1) Delayed surgical wound healing: QUALIFIERS: Encounter type: subsequent encounter Qualified Code(s): T81.89XD - Other complications of procedures, not elsewhere classified, subsequent encounter PLAN: OR 05/18/[address] Hooks for L4-5 post lumbar interbody fusion. Complicated by poor wound healing. Has been on multiple courses of po abx. Some pain and redness as an outpt. Most recently, has been on bactrim for about 2 weeks. Taken to OR 07/[address] Hooks for I&D, surg cx neg so far. Has been on bactrim, now also on zosyn. Will check repeat wound cx. Bcx neg here so far, feeling better. May be ok to resume bactrim on discharge and followup with Dr. Hooks and consider wound center eval. Will follow, thank you, dylon Martinez HPI Consult Data Date of Consult: 07/28/23 HPI Narrative Reason for Consultation: wound infection HPI Narrative: JAYDEN JACOBSON, is a 53 F who had lumbar stenosis, taken to OR 05/18/[address] Hooks for L4-5 post lumbar interbody fusion. Complicated by poor wound healing. Has been on multiple courses of po abx. Some pain and redness. Most recently, has been on bactrim for about 2 weeks. Taken to OR 07/[address] Hooks for I&D, surg cx neg so far. Admitted last night after wound vac was displaced, found to have hypotension, hypoxia, not feeling well. Admitted on bactrim and zosyn, vanc has been stopped. Feeling ok. Full ROS performed and neg except as noted above. FORMERLY [facility], [facility] Medical History ADHD Alcohol use Anxiety Arthritis BiPAP (biphasic positive airway pressure) dependence [facility] follow-up encounter Depression Diabetes Gastric reflux Gastroparesis High cholesterol History of diverticulitis History of echocardiogram History of edema History of heart attack History of IBS History of renal disease History of stress test Hypertension Marijuana use Migraine headache PONV (postoperative nausea and vomiting) Shortness of breath on exertion Sleep apnea Smoker Wears glasses Home Medications cyclobenzaprine 10 mg tablet 10 mg PO TID muscle relaxer 04/24/23 [History Last Taken 05/18/23 05:00] desvenlafaxine succinate 50 mg tablet,extended release 24 hr (Pristiq) 50 mg PO DAILY DEPRESSION 04/24/23 [History Last Taken 07/25/23] lisinopril 5 mg tablet 2.5 mg PO QHS HTN 04/24/23 [History Last Taken 05/17/23 20:00] methylphenidate HCl 20 mg tablet (Ritalin) 20 mg PO DAILY ADHD 04/24/23 [History Last Taken 05/18/23 05:00] metoclopramide HCl 10 mg tablet 10 mg PO TID GASTROPARESIS 04/24/23 [History Last Taken 07/25/23] metoprolol succinate 25 mg tablet,extended release 24 hr 12.5 mg PO QHS HTN 04/24/23 [History Last Taken 05/17/23 20:00] nitroglycerin 0.4 mg sublingual tablet 0.4 mg sublingual Q5M PRN chest pain 04/24/23 [History Last Taken Unknown] ondansetron HCl 8 mg tablet 8 mg PO TID 04/24/23 [History Last Taken 05/18/23 05:00] pantoprazole 40 mg tablet,delayed release 40 mg PO QHS GERD 04/24/23 [History Last Taken 05/17/23 20:00] pregabalin 300 mg capsule (Lyrica) 300 mg PO BID FIBROMYALGIA 04/24/23 [History Last Taken 07/25/23] rosuvastatin 40 mg tablet (Crestor) 40 mg PO DAILY HLD 04/24/23 [History Last Taken 07/25/23] semaglutide 7 mg tablet (Rybelsus) 7 mg PO DAILY DIABETES 04/24/23 [History Last Taken 07/25/23] tenapanor 50 mg tablet (Ibsrela) 50 mg PO BID IBSC 04/24/23 [History Last Taken 07/25/23] albuterol sulfate 90 mcg/actuation aerosol inhaler 2 puff inhalation Q4H 07/24 [History Last Taken Unknown] oxycodone-acetaminophen 5 mg-325 mg tablet 1 tab PO Q6H PRN pain 07/24/23 [History Last Taken Unknown] sulfamethoxazole 800 mg-trimethoprim 160 mg tablet 1 tab PO BID 07/24/23 [History Last Taken Unknown] Allergy/AdvReac Type Severity Reaction Status Date / Time magnesium salicylate Allergy Swelling Verified 07/27/23 18:37 Surgical History History of History of cholecystectomy History of colonoscopy History of coronary artery stent placement History of gastric surgery History of hysterectomy History of lumbar fusion History of umbilical hernia repair Social History Smoking Status: Current every day smoker tobacco type: cigarettes Physical Exam Const alert, oriented x3 and no apparent distress General Appearance: cooperative HEENT normocephalic and head/scalp atraumatic Eyes PERRL and EOMs intact bilaterally Neck supple and No nodes Resp normal air movement and clear to auscultation bilaterally Cardio regular rate and regular rhythm GI soft to palpation, non-tender and non-distended Extremity General Extremity: edema Skin Skin Narrative: Lumbar wound, no redness, no drainage Neuro CN's II-XII intact bilaterally Lab / Micro Data Attestation: I reviewed the patient's lab results. 07/28/23 04:45 07/28/23 04:45 Labs: Laboratory Results - last 24 hr 07/27/23 19:10: WBC 6.8, RBC 4.74, Hgb 13.5, Hct 43.3, MCV 91.4, MCH 28.5, MCHC 31.2 L, RDW Std Deviation 52.3 H, RDW Coeff of Paolo 15.7 H, Plt Count 232, MPV 10.0, Immature Gran % (Auto) 0.300, Neut % (Auto) 48.1, Lymph % (Auto) 39.1, Grainger % (Auto) 8.5, Eos % (Auto) 3.1, Baso % (Auto) 0.9, Absolute Neuts (auto) 3.3, Absolute Lymphs (auto) 2.67, Nucleated RBC % 0, PT 13.1, INR 1.0, APTT 27.2, Sodium 137, Potassium 4.0, Chloride 106, Carbon Dioxide 26.0, Anion Gap 5, BUN 14, Creatinine 1.37 H, Estim Creat Clear Calc 39.74, Est GFR (MDRD) Af Amer 52 L, Est GFR (MDRD) Non-Af 43 L, BUN/Creatinine Ratio 10.2, Glucose 88, Lactic Acid 2.1 H*, Calcium 8.6, Total Bilirubin 0.20, AST 18, ALT 20, Alkaline Phosphatase 105, Troponin I High Sens 4, B-Natriuretic Peptide < 2.0, Total Protein 7.0, Albumin 3.0 L, Globulin 4.0, Albumin/Globulin Ratio 0.8 L 07/27/23 22:25: Urine Color Yellow, Urine Clarity Clear, Urine pH 7.0, Ur Specific Alexander 1.010, Urine Protein 15 H, Urine Glucose (UA) Normal, Urine Ketones Negative, Urine Occult Blood 10 H, Urine Nitrite Negative, Urine Bilirubin Negative, Urine Urobilinogen 4 H, Ur Leukocyte Esterase Negative, Urine RBC 0 SEEN, Urine WBC 0 SEEN, Ur Squamous Epith Cells 0-5 SEEN, Urine Bacteria 0 SEEN, Urine Mucus 0 SEEN 07/27/23 23:48: Lactic Acid 0.9 07/28/23 04:45: WBC 5.0, RBC 3.88 L, Hgb 11.1 L, Hct 36.4 L, MCV 93.8, MCH 28.6, MCHC 30.5 L, RDW Std Deviation 54.7 H, RDW Coeff of Paolo 15.9 H, Plt Count 179, MPV 9.8, Immature Gran % (Auto) 0.400, Neut % (Auto) 39.9 L, Lymph % (Auto) 45.8 H, Grainger % (Auto) 9.1, Eos % (Auto) 3.8, Baso % (Auto) 1.0, Absolute Neuts (auto) 2.0, Absolute Lymphs (auto) 2.27, Nucleated RBC % 0, Sodium 140, Potassium 4.1, Chloride 112 H, Carbon Dioxide 24.0, Anion Gap 4 L, BUN 12, Creatinine 0.92, Estim Creat Clear Calc 59.17, Est GFR (MDRD) Af Amer 82, Est GFR (MDRD) Non-Af 68, BUN/Creatinine Ratio 13.0, Glucose 90, Lactic Acid 0.9, Calcium 7.3 L, Total Bilirubin 0.20, AST 12 L, ALT 13, Alkaline Phosphatase 79, Total Protein 5.3 L, Albumin 2.2 L, Globulin 3.1, Albumin/Globulin Ratio 0.7 L, TSH 0.56, Cortisol 16.70 07/28/23 19:10: ESR 52 H Micro: Microbiology 07/27/23 22:25 Urine, Clean Catch Urine Culture - Preliminary Culture exhibits no growth. 07/27/23 19:37 Nasal Secretion SARS-CoV-2 & FLU Antigen (Rapid) - Final Rhythm Strip Rhythm Strip: Sinus Rhythm Rate: 81 Ectopy: None Imagaing Radiology Impression Chest CTA 07/27/23 19:12 IMPRESSION: Negative CTA chest examination, without a demonstrated pulmonary embolism or arterial dissection. Multifocal multilobar atelectasis with underlying small airway disease versus pneumonitis not excluded. No pleural effusion. No pneumothorax. Electronically Signed: Heidi Singh MD at 21:17 [facility] , Echocardiogram 07/28/23 05:51 Interpretation Summary The left ventricular ejection fraction is 65 %. Mild-Moderate (1-2+) posteriorly directed mitral valve insufficiency. Mild tricuspid valve insufficiency. Ordering Physician: Kenzie Selby Performed By: Johnathan Van RCS
[2023-07-28] MEDS: Atorvastatin Calcium 80 MG Tablet PO (21:56)
[2023-07-28] MEDS: Pantoprazole Sodium 40 MG Tablet PO (21:56)
[2023-07-28] MEDS: Lisinopril 2.5 MG Tablet PO (22:03)
[2023-07-29] VITALS (7 sets, daily range): BP systolic 106–110; BP diastolic 58–66; PULSE 72–84; RESP 16; TEMP 36.3–36.7; O2SAT 95–98
[2023-07-29] MEDS: cycloBENZAPRine HCl 10 MG Tablet PO ×3 (05:45→21:47)
[2023-07-29] MEDS: Metoclopramide 10 MG Tablet PO ×3 (05:45→21:48)
[2023-07-29] MEDS: Piperacil/Tazobactam 3.375 GM in 0.9% Normal Saline (50mL MB+) 50 ML IV ×3 (05:46→21:54)
--- NOTE | 2023-07-29 08:12 | PN.HOSP_ITS ---
Reason for Visit Reason for Visit: Diagnoses Sepsis, unspecified organism (07/27/23) Type 2 diabetes mellitus without complications (07/27/23) Hypotension, unspecified (07/27/23) Hypoxemia (07/27/23) Other complications of procedures, not elsewhere classified, initial encounter (07/27/23) Other complications of procedures, not elsewhere classified, subsequent encounter (07/27/23) Objective Data Objective Data Vital Signs: Vital Signs Temp Pulse Resp BP Pulse Ox O2 Del Method O2 Flow Rate 97.8 F 84 16 109/61 95 Bi-pap 6 07/29/23 05:40 07/29/23 05:40 07/29/23 05:40 07/29/23 05:40 07/29/23 05:40 07/29/23 05:40 07/28/23 22:00 Oxygen Flow Rate (L/min) 6 Oxygen Delivery Method Bi-pap Weight: 220 lb 14.451 oz Body Mass Index (BMI) 39.1 Intake & Output: Intake and Output for Last 24 Hours 07/27/23 07/28/23 07/29/23 23:59 23:59 23:59 Intake Total 2099 1630 / 1630 50 / 50 Output Total 1425 / 1425 Balance 2099 205 / 205 50 / 50 Lab / Micro Data 07/28/23 04:45 07/28/23 04:45 Labs: Laboratory Results - last 24 hr 07/28/23 04:45: Cortisol 16.70 Micro: Microbiology 07/27/23 22:25 Urine, Clean Catch Urine Culture - Preliminary Culture exhibits no growth. 07/27/23 19:37 Nasal Secretion SARS-CoV-2 & FLU Antigen (Rapid) - Final Radiography Diagnostic Testing: Radiology Impression Echocardiogram 07/28/23 05:51 Interpretation Summary The left ventricular ejection fraction is 65 %. Mild-Moderate (1-2+) posteriorly directed mitral valve insufficiency. Mild tricuspid valve insufficiency. Ordering Physician: Kenzie Selby Performed By: Johnathan Van RCS Rhythm Strip Rhythm Strip: Sinus Rhythm Rate: 81 Ectopy: None Physical Exam Narrative Seen and examined. Patient was admitted with tachycardia, tachypnea and hypoxia. She states she is on oxygen on exertion at home but usually does not need it. She wears CPAP at home. She had back surgery by Dr. Hooks in May but later got complicated with wound infection which required incision debridement for abscess on past 07/25/2023. Wound VAC either not working or got detached. No fever. 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 Physical exam General: Alert, Oriented x3, Cooperative HEENT: Atraumatic, PERRLA, EOMI, Normocephalic Oral: No Gingival or Mucosal Lesions/ Ulcerations Neck: Supple, No JVD, Negative Carotid Bruits Lungs: Air entry diminished in bilateral lung bases. Bilateral slight wheezing and coarse crepitations. Cardiovascular: Regular rate, Regular Rhythm, Normal S1, Normal S2, No murmurs Abdomen: Bowel Sounds Present, Soft, Non Tender, Non-Distended : No renal angle tenderness. No suprapubic tenderness. Extremities: No edema, Capillary Refill Less than 3 Seconds Skin: Surgical wound over upper lumbar back. Musculoskeletal: No Tenderness to Palpation of Joints or Extremities Neurological: Cranial nerves II-XII grossly intact, DTR 2+/4. No acute focal neurological deficit. Psych/Mental Status: Normal Affect, Appropriate. Assessment & Plan Assessment/Plan (1) Acute hypotension: PLAN: 1. Exact reason for acute hypotension is not clear. Besides patient hypoxic and had low pressures in the morning, exact cause is unclear but sepsis seems possibility patient does not look very sick or toxic. Patient had delayed surgical wound healing displaced wound VAC with recent surgery on 07/25/2023 for possible abscess after surgery. ID is consulted. blood cultures, urine cultures. Start her on zoysn and vancomycin. 2. Acute on chronic hypoxic respiratory failure present on admission: Patient put on BiPAP at night. Currently on 6 L of high flow oxygen. The patient is asymptomatic without dizziness or lightheadedness but given her hypotension, hypoxemia on 6 L of oxygen, mildly elevated lactate levels there was concern or possibility of sepsis during admission but patient clinically does not look very toxic or sick. Her blood pressure is improved. 2D echo shows EF 65% with mild MR, mild TR with normal diastolic for age.Elevated lactic acid may be secondary to hypoxia. Patient does not have significant leukocytosis or fever. Wound site also looks relatively well with no significant tenderness or limitation of movement. (2) Delayed surgical wound healing: QUALIFIERS: Encounter type: subsequent encounter Qualified Code(s): T81.89XD - Other complications of procedures, not elsewhere classified, subsequent encounter PLAN: Wound infection and delayed surgical wound healing: Patient is spine surgeon Dr. Kali Hooks is consulted to evaluate the wound. Possibly consider wound VAC replacement. ID is consulted. 07/29: Sepsis ruled out. Patient had L4-5 lumbar spondylosis and degenerative disc surgery with interbody fusion complicated by poor wound healing. Patient has been on multiple courses of oral antibiotics recently on Bactrim for about 2 weeks. Patient had incision and drainage on 07/25 but surgical culture negative so far. Blood negative. Advised to resume Bactrim on discharge. (3) Type 2 diabetes mellitus: PLAN: HbA1c, random blood sugars tomorrow morning. Insulin nomogram for inpatient sugar controls.
[2023-07-29 08:15] LABS: Absolute Lymphocyte Count 1.45 X10^3/uL (0.83-4.51); Absolute Neutrophil Count 3.2 X10^3/uL (2.0-7.7); Basophil# 0.03 X10^3/uL; Basophil% 0.6 % (0-1); Eosinophil# 0.08 X10^3/uL; Eosinophils% 1.6 % (0-5); Hemoglobin 12.6 g/dL (12.0-15.0); Lymphocyte # 1.45 X10^3/ul (0.83-4.51); Lymphocyte % 28.3 % (19-41); Mean Corp Hgb Conc 31.5 g/dL (32-36); Mean Corpuscular Hgb 28.9 pg (27.0-32.0); Mean Corpuscular Volume 91.7 fL (81-99); Mean Platelet Vol. 10.1 fl (6.2-12.0); Monocyte# 0.35 X10^3/uL; Monocyte% 6.8 % (0-10); NRBC Flagged by Analyzer 0 % (0-5); Neutrophil % 62.5 % (47-70); Platelet Count 192 K/mm3 (150-450); RBC Distribution Width CV 15.7 % (11.6-14.6); RBC Distribution Width SD 52.4 fl (35.1-43.9); Red Blood Count 4.36 M/mm3 (4.2-5.4); White Blood Count 5.1 K/mm3 (4.4-11.0)
[2023-07-29] MEDS: Smz/Tmp Ds Tablet 1 TABLET PO ×2 (08:40→16:56)
[2023-07-29] MEDS: Enoxaparin 40 MG/0.4 ML Syringe SC (08:40)
[2023-07-29] MEDS: Venlafaxine XR 37.5 MG Capsule PO (08:41)
[2023-07-29] MEDS: Pregabalin 75 MG Capsule 300 MG PO ×2 (08:41→21:56)
--- NOTE | 2023-07-29 08:45 | PCM.PN.INT ---
Assessment & Plan Assessment/Plan (1) Acute hypotension: (2) Hypoxia: (3) Delayed surgical wound healing: QUALIFIERS: Encounter type: subsequent encounter Qualified Code(s): T81.89XD - Other complications of procedures, not elsewhere classified, subsequent encounter PLAN: Plan RECOMMENDATIONS: 1. Encourage incentive spirometer 2. Possible empiric diuresis tomorrow if not improving 3. Continue empiric antibiotics pending cultures 4. Hold metoprolol for now 5. Possible room air ABG tomorrow 6. Continue home TEOFILO therapy with all sleep 7. PFTs as an outpatient IMPRESSIONS: 1. Acute hypotension Resolved. Patient does not have any significant leukocytosis or fever. Elevated lactate could be secondary to lower oxygen. Wound site looks relatively well to me and patient does not have significant limitation to suggest discitis. Could have an MRI of the spine to reevaluate. Cultures have been sent. Patient currently on empiric antibiotics at this time and ID is following. Orthostatics and echocardiogram overnight suggestive of a volume or cardiac etiology. Patient appears to be mentating well despite lower blood pressures. Patient is on Lopressor and lisinopril at home, which have been held. These may be able to be reinitiated in a stepwise fashion. Patient is also on Flexeril, Reglan and Zofran so polypharmacy would be a concern. 2. Hypoxia Unclear etiology at this time. Patient does have a long smoking history, but does not have a significant polycythemia or clubbing to suggest chronic hypoxia. Outpatient complete PFT would likely be necessary. Patient is on narcotics in the setting of TEOFILO and this could be leading to lower saturations. CTA of the chest was relatively unremarkable except for subsegmental atelectasis, which could be seen in early COPD, hypoventilation or early onset pneumonia. Patient does not have a clinical scenario suggestive of pneumonia at this time. Patient will be encouraged to use incentive spirometer and activity as tolerated. Patient may require a room air ABG to evaluate for hypoventilation as an etiology. BNP is not suggestive of congestive heart failure, but fluid overload could lead to findings on CT scan. If patient remains hypoxic tomorrow, likely treat with empiric diuresis 3. Type 2 diabetes mellitus/obesity/TEOFILO/fibromyalgia/hypertension/IBD/chronic pain syndrome Complicates care, management, recovery and prognosis. Patient definitely needs to be on her sleep apnea therapy with any sleep given concomitant narcotics. Defer to hospitalist on IBD and diabetes management. Antihypertensives will need to be held given problem #1. Ideally, patient will come off of narcotics if possible as this could be complicating both problems 1 and 2. Subjective Subjective Patient feels subjectively much improved compared to previous. Patient states she did have significant pain associated with removal of the sponge from her back, but overall feels much more alert. Patient states she spent most of the day sleeping on her home CPAP and feels much more energetic today. Patient is not reporting any productive cough. Patient feels her back pain is slightly improved compared to previous. Objective Data Objective Data Vital Signs: Vital Signs Temp Pulse Resp BP Pulse Ox O2 Del Method O2 Flow Rate 36.6 C 84 16 109/61 95 Bi-pap 6 07/29/23 05:40 07/29/23 05:40 07/29/23 05:40 07/29/23 05:40 07/29/23 05:40 07/29/23 05:40 07/28/23 22:00 Oxygen Flow Rate (L/min) 6 Oxygen Delivery Method Bi-pap Weight: 100.2 kg Body Mass Index (BMI) 39.1 Intake & Output: Intake and Output for Last 24 Hours 07/27/23 07/28/23 07/29/23 23:59 23:59 23:59 Intake Total 2099 1630 / 1630 50 / 50 Output Total 1425 / 1425 Balance 2099 205 / 205 50 / 50 Lab / Micro Data Attestation: I reviewed the patient's lab results. 07/29/23 08:00 07/28/23 04:45 Labs: Laboratory Results - last 24 hr 07/28/23 04:45: Cortisol 16.70 07/29/23 08:00: WBC 5.1, RBC 4.36, Hgb 12.6, Hct 40.0, MCV 91.7, MCH 28.9, MCHC 31.5 L, RDW Std Deviation 52.4 H, RDW Coeff of Paolo 15.7 H, Plt Count 192, MPV 10.1, Immature Gran % (Auto) 0.200, Neut % (Auto) 62.5, Lymph % (Auto) 28.3, Gooding % (Auto) 6.8, Eos % (Auto) 1.6, Baso % (Auto) 0.6, Absolute Neuts (auto) 3.2, Absolute Lymphs (auto) 1.45, Nucleated RBC % 0 Micro: Microbiology 07/27/23 22:25 Urine, Clean Catch Urine Culture - Preliminary Culture exhibits no growth. 07/27/23 19:37 Nasal Secretion SARS-CoV-2 & FLU Antigen (Rapid) - Final Radiography Diagnostic Testing: Radiology Impression Echocardiogram 07/28/23 05:51 Interpretation Summary The left ventricular ejection fraction is 65 %. Mild-Moderate (1-2+) posteriorly directed mitral valve insufficiency. Mild tricuspid valve insufficiency. Ordering Physician: Kenzie Selby Performed By: Johnathan Van RCS Rhythm Strip Rhythm Strip: Sinus Rhythm Rate: 84 Ectopy: None Physical Exam Const alert and oriented x3 Constitutional Narrative: Obese. No conversational dyspnea. Much more alert and interactive in the bed today General Appearance: cooperative HEENT normocephalic, head/scalp atraumatic and moist oral mucous membranes Eyes PERRL, EOMs intact bilaterally, conjunctivae normal and no scleral icterus Eyes Narrative: Glasses in place Neck no lymphadenopathy Chest inspection of chest normal Resp normal respiratory effort Effort and Inspection: Negative for tachypneic Auscultation: clear to auscultation bilaterally; Negative for rales, rhonchi or wheezes Cardio regular rate, regular rhythm, S1 normal heart sound, S2 normal heart sound, no murmurs, no rub, no gallops and no JVD GI normal to inspection, nondistended, normoactive bowel sounds and soft to palpation Extremity normal to inspection and full ROM General Extremity: Negative for clubbing or edema Skin Skin Narrative: No localized tenderness over the spine wound. No surrounding erythema noted Neuro oriented x3, CN's II-XII intact bilaterally, moves all extremities and no focal motor deficits Neuro Narrative: Able to roll around the bed without assistance Psych cooperative and affect normal Psych Narrative: No issues with recall noted Charges/Coding Visit Charges Inpatient E&M: 86774 Subs Hosp L2
[2023-07-29 08:48] LABS: Anion Gap 3 (5-15); BUN 6 mg/dL (7-18); BUN/Creat Ratio 6.7 RATIO (10-20); Calcium,Total 8.7 mg/dL (8.5-10.1); Chloride 110 mmol/L (98-107); EST Glomerular Filtration Rate 70 mL/min (>60); Est Glom Filt Rate - Afr Amer 85 mL/min (>60); Estimated Creatinine Clearance 60.49 ml/min; Glucose 98 mg/dL (74-106); Potassium 3.9 mmol/L (3.5-5.1); Sodium Level 139 mmol/L (136-145)
[2023-07-29] MEDS: Acetaminophen 325 MG Tablet 650 MG PO (11:27)
[2023-07-29] MEDS: oxyCODONE 5 MG Tablet PO ×2 (11:27→19:58)
--- NOTE | 2023-07-29 12:32 | PCM.PN.HOSP ---
Reason for Visit Reason for Visit: Diagnoses Sepsis, unspecified organism (07/27/23) Type 2 diabetes mellitus without complications (07/27/23) Hypotension, unspecified (07/27/23) Hypoxemia (07/27/23) Other complications of procedures, not elsewhere classified, initial encounter (07/27/23) Other complications of procedures, not elsewhere classified, subsequent encounter (07/27/23) Objective Data Objective Data Vital Signs: Vital Signs Temp Pulse Resp BP Pulse Ox O2 Del Method O2 Flow Rate 98.1 F 81 16 110/66 98 High Flow 2 07/29/23 11:10 07/29/23 11:10 07/29/23 11:10 07/29/23 11:10 07/29/23 11:29 07/29/23 11:29 07/29/23 11:29 Oxygen Flow Rate (L/min) 2 Oxygen Delivery Method High Flow Weight: 220 lb 14.451 oz Body Mass Index (BMI) 39.1 Intake & Output: Intake and Output for Last 24 Hours 07/27/23 07/28/23 07/29/23 23:59 23:59 23:59 Intake Total 2099 1630 / 1630 100 / 100 Output Total 1425 / 1425 Balance 2099 205 / 205 100 / 100 Lab / Micro Data 07/29/23 08:00 07/29/23 08:00 Labs: Laboratory Results - last 24 hr 07/29/23 08:00: WBC 5.1, RBC 4.36, Hgb 12.6, Hct 40.0, MCV 91.7, MCH 28.9, MCHC 31.5 L, RDW Std Deviation 52.4 H, RDW Coeff of Paolo 15.7 H, Plt Count 192, MPV 10.1, Immature Gran % (Auto) 0.200, Neut % (Auto) 62.5, Lymph % (Auto) 28.3, [place] % (Auto) 6.8, Eos % (Auto) 1.6, Baso % (Auto) 0.6, Absolute Neuts (auto) 3.2, Absolute Lymphs (auto) 1.45, Nucleated RBC % 0, Sodium 139, Potassium 3.9, Chloride 110 H, Carbon Dioxide 26.0, Anion Gap 3 L, BUN 6 L, Creatinine 0.90, Estim Creat Clear Calc 60.49, Est GFR (MDRD) Af Amer 85, Est GFR (MDRD) Non-Af 70, BUN/Creatinine Ratio 6.7 L, Glucose 98, Calcium 8.7 Micro: Microbiology 07/28/23 Unknown Wound - Back Gram Stain - Final 07/28/23 Unknown Wound - Back Wound Culture - Preliminary Coag Negative Staph 07/27/23 22:25 Urine, Clean Catch Urine Culture - Preliminary Culture exhibits no growth. 07/27/23 19:37 Nasal Secretion SARS-CoV-2 & FLU Antigen (Rapid) - Final Rhythm Strip Rhythm Strip: Sinus Rhythm Rate: 84 Ectopy: None Physical Exam Narrative Seen and examined. Patient vitals are controlled. Heart rate and blood pressure normal. Last night patient was on BiPAP and then morning 6 L but currently on 2 L of oxygen. She states she is on oxygen on exertion at home but usually does not need it. She wears CPAP at home. She had back surgery by Dr. Hooks in May but later got complicated with wound infection which required incision debridement for abscess on past 07/25/2023.No fever. Physical exam General: Alert, Oriented x3, Cooperative HEENT: Atraumatic, PERRLA, EOMI, Normocephalic Oral: No Gingival or Mucosal Lesions/ Ulcerations Neck: Supple, No JVD, Negative Carotid Bruits Lungs: Air entry diminished in bilateral lung bases. Bilateral slight wheezing and coarse crepitations. Cardiovascular: Regular rate, Regular Rhythm, Normal S1, Normal S2, No murmurs Abdomen: Bowel Sounds Present, Soft, Non Tender, Non-Distended : No renal angle tenderness. No suprapubic tenderness. Extremities: No edema, Capillary Refill Less than 3 Seconds Skin: Soakage of the dressing and bedsheet. Clear discharge. After removal of dressing packing gauze serous and mild purulent stain. Overall wound looks healing after incision and drainage. No tenderness. Musculoskeletal: No Tenderness to Palpation of Joints or Extremities ROM full. Spine: Lumbar spondylosis with recent back surgery Neurological: Cranial nerves II-XII grossly intact, DTR 2+/4. No acute focal neurological deficit. Psych/Mental Status: Normal Affect, Appropriate. Assessment & Plan Assessment/Plan (1) Acute hypotension: PLAN: 1. Exact reason for acute hypotension is not clear. Besides patient hypoxic and had low pressures in the morning, exact cause is unclear but sepsis seems possibility patient does not look very sick or toxic. Patient had delayed surgical wound healing displaced wound VAC with recent surgery on 07/25/2023 for possible abscess after surgery. ID is consulted. blood cultures, urine cultures. Start her on zoysn and vancomycin. 2. Acute on chronic hypoxic respiratory failure present on admission: Patient put on BiPAP at night. In the morning patient on 6 L and then came down to 2 L. The patient is asymptomatic without dizziness or lightheadedness but given her hypotension, hypoxemia on 6 L of oxygen, mildly elevated lactate levels there was concern or possibility of sepsis during admission but patient clinically does not look very toxic or sick. Her blood pressure is improved. 2D echo shows EF 65% with mild MR, mild TR with normal diastolic for age.Elevated lactic acid may be secondary to hypoxia. Patient does not have significant leukocytosis or fever. Wound site also looks relatively well with no significant tenderness or limitation of movement. (2) Delayed surgical wound healing: QUALIFIERS: Encounter type: subsequent encounter Qualified Code(s): T81.89XD - Other complications of procedures, not elsewhere classified, subsequent encounter PLAN: Wound infection and delayed surgical wound healing: Patient is spine surgeon Dr. Kali Hooks is consulted to evaluate the wound. Possibly consider wound VAC replacement. ID is consulted. 07/29: Sepsis ruled out. Patient had L4-5 lumbar spondylosis and degenerative disc surgery with interbody fusion complicated by poor wound healing. Patient has been on multiple courses of oral antibiotics recently on Bactrim for about 2 weeks. Patient had incision and drainage on 07/25 but surgical culture negative so far. Blood cultures negative. Wound culture coagulase-negative staph on 07/28. General no growth. Advised to resume Bactrim on discharge. Blood cultures from 07/28 pending. (3) Type 2 diabetes mellitus: PLAN: HbA1c, random blood sugars tomorrow morning. Insulin nomogram for inpatient sugar controls. Charges/Coding Visit Charges Inpatient E&M: 75724 Subs Hosp L2
[2023-07-29] MEDS: 0.9% Saline Lock 10 ML Syringe IV (16:56)
[2023-07-29] MEDS: Atorvastatin Calcium 80 MG Tablet PO (21:47)
[2023-07-29] MEDS: Pantoprazole Sodium 40 MG Tablet PO (21:48)
[2023-07-29] MEDS: Lisinopril 2.5 MG Tablet PO (21:49)
[2023-07-30] MEDS: oxyCODONE 5 MG Tablet PO ×2 (03:08→10:15)
[2023-07-30 03:51] VITALS: BP 92/62; PULSE 73; RESP 16; TEMP 36.6; O2SAT 96
[2023-07-30 04:00] VITALS: BP 92/62; PULSE 73; RESP 16; TEMP 36.6; O2SAT 96
[2023-07-30] MEDS: Metoclopramide 10 MG Tablet PO (05:42)
[2023-07-30] MEDS: cycloBENZAPRine HCl 10 MG Tablet PO (05:42)
[2023-07-30] MEDS: Piperacil/Tazobactam 3.375 GM in 0.9% Normal Saline (50mL MB+) 50 ML IV (05:44)
[2023-07-30 07:20] LABS: Absolute Lymphocyte Count 1.91 X10^3/uL (0.83-4.51); Absolute Neutrophil Count 1.8 X10^3/uL (2.0-7.7); Basophil# 0.04 X10^3/uL; Basophil% 0.9 % (0-1); Eosinophil# 0.14 X10^3/uL; Eosinophils% 3.2 % (0-5); Hematocrit 37.3 % (37-47); Hemoglobin 11.6 g/dL (12.0-15.0); Lymphocyte # 1.91 X10^3/ul (0.83-4.51); Mean Corp Hgb Conc 31.1 g/dL (32-36); Mean Corpuscular Hgb 28.8 pg (27.0-32.0); Mean Corpuscular Volume 92.6 fL (81-99); Mean Platelet Vol. 10.1 fl (6.2-12.0); Monocyte# 0.44 X10^3/uL; Monocyte% 10.1 % (0-10); NRBC Flagged by Analyzer 0 % (0-5); Neutrophil % 41.6 % (47-70); Platelet Count 172 K/mm3 (150-450); RBC Distribution Width SD 53.4 fl (35.1-43.9); Red Blood Count 4.03 M/mm3 (4.2-5.4); White Blood Count 4.3 K/mm3 (4.4-11.0)
[2023-07-30 07:40] LABS: Anion Gap 5 (5-15); BUN 10 mg/dL (7-18); BUN/Creat Ratio 10.9 RATIO (10-20); Calcium,Total 8.6 mg/dL (8.5-10.1); Chloride 106 mmol/L (98-107); Creatinine, Serum 0.92 mg/dL (0.55-1.02); EST Glomerular Filtration Rate 68 mL/min (>60); Est Glom Filt Rate - Afr Amer 83 mL/min (>60); Estimated Creatinine Clearance 59.17 ml/min; Glucose 90 mg/dL (74-106); Potassium 4.2 mmol/L (3.5-5.1); Sodium Level 140 mmol/L (136-145)
[2023-07-30 08:40] VITALS: BP 108/68; PULSE 78; RESP 16; TEMP 36.4; O2SAT 96
[2023-07-30] MEDS: Smz/Tmp Ds Tablet 1 TABLET PO (08:44)
[2023-07-30] MEDS: Pregabalin 75 MG Capsule 300 MG PO (08:45)
[2023-07-30] MEDS: Venlafaxine XR 37.5 MG Capsule PO (08:45)
[2023-07-30] MEDS: Enoxaparin 40 MG/0.4 ML Syringe SC (08:45)
--- NOTE | 2023-07-30 09:25 | DCINST_ITS ---
Discharge Instructions Diet Discharge Diet: No restrictions Activity Discharge Activity: Return to Normal Activity Weight Bearing Status: Weight bearing as tolerated Dressing / Incision Call your doctor if you observe: Fever of 101 or Higher, Coldness, Increased Pain, Numbness or Tingling, Change in Color, Inability to urinate, Inability to have a bowel movement, Using more than 1 pad per hour, Shortness of breath, Dizziness, Fainting spells, Swelling in the ankles, Chest pain, Prolonged hiccupping, Increased palpitations (irregular heartbeat) and Calf discomfort Follow Up Care When: IN 2 WEEKS Test Results: Test results from this visit will be discussed in further detail at your follow- up appointment, if applicable. Discharge Plan Admission Admit Date/Time: 07/27/23 23:58 Primary Reason for Your Visit: Surgical wound infection. Attending Provider: Fawad Argueta Primary Care Provider: Jane Flores Consulting Providers: Marcelino Martinez; Joshua Mario; Cony Boykin; Humberto Cheema; Silvana Tipton NP; Bereket Mcclain; Kali Hooks Discharge Orders/Prescriptions Prescriptions: New Daily Fiber (psyllium-aspart) 3 gram Powder In Packet 1 packet PO DAILY PRN PRN (Reason: Constipation) Qty: 0 0RF Rx Instructions: [id number]. Continued Rybelsus 7 mg tablet 7 mg PO DAILY Ibsrela 50 mg tablet 50 mg PO BID Rx Instructions: must administer immediately before first meal of day/breakfast and dinner metoclopramide HCl 10 mg tablet 10 mg PO TID Patient Comments: TAKE 1 TABLET BY MOUTH THREE TIMES A DAY pantoprazole 40 mg tablet,delayed release (DR/EC) 40 mg PO QHS Patient Comments: TAKE 1 TABLET BY MOUTH EVERY DAY ondansetron HCl 8 mg tablet 8 mg PO TID Patient Comments: TAKE 1 TABLET BY MOUTH EVERY 8 HOURS NEEDED FOR NAUSEA AND VOMITING desvenlafaxine succinate [Pristiq] 50 mg tablet extended release 24 hr 50 mg PO DAILY cyclobenzaprine 10 mg tablet 10 mg PO TID pregabalin [Lyrica] 300 mg capsule 300 mg PO BID methylphenidate HCl [Ritalin] 20 mg tablet 20 mg PO DAILY rosuvastatin [Crestor] 40 mg tablet 40 mg PO DAILY nitroglycerin 0.4 mg tablet, sublingual 0.4 mg sublingual Q5M PRN (Reason: chest pain) Patient Comments: PLACE 1 TABLET UNDER TONGUE EVERY 5 MINS, UP TO 3 DOSES NEEDED FOR CHEST PAIN lisinopril 5 mg tablet 2.5 mg PO QHS 30 Days Qty: 0 0RF Patient Comments: TAKE ONE-HALF TABLET BY MOUTH IN THE MORNING Rx Instructions: Hold for SBP less than 130 mmHg albuterol sulfate 90 mcg/actuation HFA aerosol inhaler 2 puff INHALATION Q4H Patient Comments: INHALE 2 PUFFS EVERY 4 HOURS NEEDED FOR SHORTNESS OF BREATH sulfamethoxazole-trimethoprim 800-160 mg tablet 1 tab PO BID oxycodone-acetaminophen 5-325 mg tablet 1 tab PO Q6H PRN (Reason: pain) Patient Comments: TAKE 1 TABLET BY MOUTH EVERY 6 HOURS NEEDED FOR PAIN Held metoprolol succinate 25 mg tablet extended release 24 hr 12.5 mg PO QHS Hold Instructions: Hold for 2 days. If heart rate more than 80/min and systolic blood pressure more than 120 mmHg, can resume under guidance of PCP. Patient Comments: TAKE 0.5 TAB(S) BY MOUTH AT NIGHT TIME. INSTR:DO NOT CRUSH OR CHEW (CONTROLLED RELEASE) Referrals / Follow Up: Jane Flores DO [Primary Care Provider] - Marcelino Martinez MD [Med Staff - Active Staff] - Within 2 Weeks (Follow-up with nurse practitioner in 2 weeks. Outpatient PFT and sleep study.) Kali Hooks DO [Med Staff - Active Staff] - Within 1 Week Bereket Mcclain MD [Med Staff - Active Staff] - Within 1 Month (As needed for antibiotic queries or recommendations) Disposition Disposition (needs filled in before D/C Order can be placed): Home Health Service
--- NOTE | 2023-07-30 10:18 | PN.CC_ITS ---
Assessment & Plan Assessment/Plan (1) Acute hypotension: (2) Hypoxia: (3) Delayed surgical wound healing: QUALIFIERS: Encounter type: subsequent encounter Qualified Code( s): T81.89XD - Other complications of procedures, not elsewhere classified, subsequent encounter PLAN: Plan RECOMMENDATIONS: 1. Encourage incentive spirometer 2. Defer to infectious disease on antibiotics 3. Obtain walking oximetry 4. Reevaluate as an outpatient for reinitiation of metoprolol 5. If patient unable to be discharged, obtain room air ABG 6. Continue home TEOFILO therapy with all sleep 7. Follow-up with nurse practitioner 2 weeks after discharge. PFTs as an outpatient IMPRESSIONS: 1. Acute hypotension Resolved. Patient does not have any significant leukocytosis or fever. Elevated lactate could be secondary to lower oxygen. Wound site looks relatively well to me and patient does not have significant limitation to suggest discitis. Could have an MRI of the spine to reevaluate. Cultures have been sent. Patient currently on empiric antibiotics at this time and ID is following. Orthostatics and echocardiogram overnight not suggestive of a volume or cardiac etiology. Patient appears to be mentating well despite lower blood pressures. Patient is on Lopressor and lisinopril at home, which have been held. These may be able to be reinitiated in a stepwise fashion as an outpatient. Patient is also on Flexeril, Reglan and Zofran so polypharmacy would be a concern. 2. Hypoxia Resolved. Patient does have a long smoking history, but does not have a significant polycythemia or clubbing to suggest chronic hypoxia. Outpatient complete PFT would likely be necessary. Patient is on narcotics in the setting of TEOFILO and this could be leading to lower saturations. CTA of the chest was relatively unremarkable except for subsegmental atelectasis, which could be seen in early COPD, hypoventilation or early onset pneumonia. Patient does not have a clinical scenario suggestive of pneumonia at this time. Patient will be encouraged to use incentive spirometer and activity as tolerated. If patient is unable to ambulate on room air and maintain saturations, obtain a room air ABG for evaluation of hypoventilation as an etiology. Patient should follow-up with nurse practitioner 2 weeks after discharge for PFTs and evaluation for possible underlying lung disease given smoking history. 3. Type 2 diabetes mellitus/obesity/TEOFILO/fibromyalgia/hypertension/IBD/chronic pain syndrome Complicates care, management, recovery and prognosis. Patient definitely needs to be on her sleep apnea therapy with any sleep given concomitant narcotics. Defer to hospitalist on IBD and diabetes management. Antihypertensives will need to be held given problem #1. Ideally, patient will come off of narcotics if possible as this could be complicating both problems 1 and 2. Subjective Subjective Patient did well overnight. Patient states that she was off of oxygen for much of yesterday and feels that she is doing well. Patient has not had any significant cough. Patient has had some concerns with her wound VAC malfunctioning, but nursing appears to feel to have it fixed. Objective Data Objective Data Vital Signs: Vital Signs Temp Pulse Resp BP Pulse Ox O2 Del Method O2 Flow Rate 36.4 C L 78 16 108/68 96 Room Air 2 07/30/23 08:40 07/30/23 08:40 07/30/23 08:40 07/30/23 08:40 07/30/23 08:40 07/30/23 08:40 07/29/23 11:29 Oxygen Flow Rate (L/min) 2 Oxygen Delivery Method Room Air Weight: 100.2 kg Body Mass Index (BMI) 39.1 Intake & Output: Intake and Output for Last 24 Hours 07/28/23 07/29/23 07/30/23 23:59 23:59 23:59 Intake Total 1630 / 1630 1150 / 1150 200 / 200 Output Total 1425 / 1425 Balance 205 / 205 1150 / 1150 200 / 200 Lab / Micro Data Attestation: I reviewed the patient's lab results. 07/30/23 07:00 07/30/23 07:00 Labs: Laboratory Results - last 24 hr 07/30/23 07:00: WBC 4.3 L, RBC 4.03 L, Hgb 11.6 L, Hct 37.3, MCV 92.6, MCH 28.8, MCHC 31.1 L, RDW Std Deviation 53.4 H, RDW Coeff of Paolo 16.0 H, Plt Count 172, MPV 10.1, Immature Gran % (Auto) 0.200, Neut % (Auto) 41.6 L, Lymph % (Auto) 44.0 H, [place] % (Auto) 10.1 H, Eos % (Auto) 3.2, Baso % (Auto) 0.9, Absolute Neuts (auto) 1.8 L, Absolute Lymphs (auto) 1.91, Nucleated RBC % 0, Sodium 140, Potassium 4.2, Chloride 106, Carbon Dioxide 29.0, Anion Gap 5, BUN 10, Creatinine 0.92, Estim Creat Clear Calc 59.17, Est GFR (MDRD) Af Amer 83, Est GFR (MDRD) Non-Af 68, BUN/Creatinine Ratio 10.9, Glucose 90, Calcium 8.6 Micro: Microbiology 07/28/23 01:42 Blood Culture (Wb) - Right Wrist Blood Culture - Preliminary No growth in 48 hours. 07/28/23 01:12 Blood Culture (Wb) - Anticubital Left Blood Culture - Preliminary No growth in 48 hours. 07/27/23 19:10 Blood Culture (Wb) - Anticubital Right Blood Culture - Preliminary No growth in 48 hours. 07/27/23 19:05 Blood Culture (Wb) - Left Wrist Blood Culture - Preliminary No growth in 48 hours. 07/28/23 Unknown Wound - Back Gram Stain - Final 07/28/23 Unknown Wound - Back Wound Culture - Preliminary Coag Negative Staph 07/27/23 22:25 Urine, Clean Catch Urine Culture - Final Culture exhibits no growth. 07/27/23 19:37 Nasal Secretion SARS-CoV-2 & FLU Antigen (Rapid) - Final Rhythm Strip Rhythm Strip: Sinus Rhythm Rate: 73 Ectopy: None Physical Exam Const alert, oriented x3 and no apparent distress Constitutional Narrative: Obese. No conversational dyspnea. General Appearance: cooperative HEENT normocephalic, head/scalp atraumatic and moist oral mucous membranes HEENT Narrative: Mallampati 3 Eyes PERRL, EOMs intact bilaterally, conjunctivae normal and no scleral icterus Eyes Narrative: Glasses in place Neck no lymphadenopathy Chest inspection of chest normal Resp normal respiratory effort Effort and Inspection: Negative for tachypneic Auscultation: clear to auscultation bilaterally; Negative for rales, rhonchi or wheezes Cardio regular rate, regular rhythm, S1 normal heart sound, S2 normal heart sound, no murmurs, no rub, no gallops and no JVD GI normal to inspection, nondistended, normoactive bowel sounds and soft to palpation Extremity normal to inspection and full ROM General Extremity: Negative for clubbing or edema Skin Skin Narrative: No localized tenderness over the spine wound. No surrounding erythema noted Neuro oriented x3, CN's II-XII intact bilaterally, moves all extremities and no focal motor deficits Neuro Narrative: Able to roll around the bed without assistance Psych cooperative and affect normal Psych Narrative: No issues with recall noted Charges/Coding Visit Charges Inpatient E&M: 77045 Subs Hosp L2
[2023-07-30 12:18] VITALS: O2SAT 94; O2SAT 95
--- NOTE | 2023-07-30 12:37 | PCM.DC.SUM ---
Providers Date of Admission: 07/27/23 Date of Discharge: 07/30/23 Primary Care Physician: Dr. Jane Flores, Consultations 07/28/23 00:47 Consult: Orthopedics Routine Consulting Provider: Kali Hooks Reason for Consult: recent spine surgery EMERGENT Consult: No MD Notified: Yes Date Notified: 07/28/23 Time Notified: 00:47 Method of Notification: ED Physician Initiated 07/28/23 02:19 Consult: Onc/Wound/tube room cashier Routine Comment: Reason for Consult:: dislodged wound vac 07/28/23 06:01 Consult: Superintendent / Pulmonary Medicine Routine Consulting Provider: [facility] Reason for Consult: Hypoxia EMERGENT Consult: No MD Notified: Yes Date Notified: 07/28/23 Time Notified: 06:01 Method of Notification: Verbal 07/28/23 10:42 Consult: Infectious Disease Routine Consulting Provider: Breeket Mcclain Reason for Consult: POST op recurrent wound infection in lumbar area EMERGENT Consult: No MD Notified: Yes Date Notified: 07/28/23 Time Notified: 10:42 Method of Notification: Text Reason For Visit: SEPSIS Diagnosis Discharge Diagnosis (1) Acute hypotension: Status: Acute Code(s): I95.9 - Hypotension, unspecified (2) Hypoxia: Status: Acute Code(s): R09.02 - Hypoxemia (3) Delayed surgical wound healing: Status: Acute Code(s): T81.89XA - Other complications of procedures, not elsewhere classified, initial encounter Qualifiers: Encounter type: subsequent encounter Qualified Code(s): T81.89XD - Other complications of procedures, not elsewhere classified, subsequent encounter Plan 1. Exact reason for acute hypotension is not clear. Besides patient hypoxic and had low pressures in the morning, exact cause is unclear but sepsis seems possibility patient does not look very sick or toxic. Patient had delayed surgical wound healing displaced wound VAC with recent surgery on 07/25/2023 for possible abscess after surgery. ID is consulted. blood cultures, urine cultures. Start her on zoysn and vancomycin. 07/30: Vancomycin was discontinued earlier. As per ID recommendation, patient to resume on Bactrim at discharge. Overall wound exam looks healing. Dressing was done. Wound VAC placed. Follow-up in wound center. Prelim wound culture shows ASPHALT LAYER most likely contamination. Blood culture negative from 07/27 and 07/28 for more than 48 hours. Urine culture negative. Patient advised to follow-up with Dr. Vogel in 1 week. ID follow-up as needed. 2. Acute on chronic hypoxic respiratory failure present on admission: Patient put on BiPAP at night. In the morning patient on 6 L and then came down to 2 L. The patient is asymptomatic without dizziness or lightheadedness but given her hypotension, hypoxemia on 6 L of oxygen, mildly elevated lactate levels there was concern or possibility of sepsis during admission but patient clinically does not look very toxic or sick. Her blood pressure is improved. 2D echo shows EF 65% with mild MR, mild TR with normal diastolic for age.Elevated lactic acid may be secondary to hypoxia. Patient does not have significant leukocytosis or fever. Wound site also looks relatively well with no significant tenderness or limitation of movement. 07/30: Patient was evaluated manager critical care. Continue incentive spirometry. Patient is on room air. Home qualification oxygen was negative. Patient is discharged home with instruction to follow-up in pulmonary clinic for PFT and sleep study. Patient has CPAP at home. (2) Delayed surgical wound healing: QUALIFIERS: Encounter type: subsequent encounter Qualified Code(s): T81.89XD - Other complications of procedures, not elsewhere classified, subsequent encounter PLAN: Wound infection and delayed surgical wound healing: Patient is spine surgeon Dr. Kali Hooks is consulted to evaluate the wound. 07/29: Sepsis ruled out. Patient had L4-5 lumbar spondylosis and degenerative disc surgery with interbody fusion complicated by poor wound healing. Patient has been on multiple courses of oral antibiotics recently on Bactrim for about 2 weeks. Patient had incision and drainage on 07/25 but surgical culture negative so far. Blood cultures negative. Wound culture coagulase-negative staph on 07/28. As mentioned above advised to resume Bactrim on discharge. (3) Type 2 diabetes mellitus: A1c was 5.7% on 04/27/2023. Glucose is 90 mg/dL in BMP. Well-controlled. Discharge medication reconciliation done. Discharge follow-up instructions completed. Discharge process discussed with the patient and all questions were answered to patient's satisfaction. Follow with PCP in 1 to 2 weeks Total time spent, exact 35 minutes on discharge meds reconciliation, examination, coordination of care with nurses and ancillary staff, review of imaging and blood test and discussion with the patient on follow-up instructions. Medications at Discharge Home Medications cyclobenzaprine 10 mg tablet 10 mg PO TID muscle relaxer 04/24/23 desvenlafaxine succinate 50 mg tablet,extended release 24 hr (Pristiq) 50 mg PO DAILY DEPRESSION 04/24/23 methylphenidate HCl 20 mg tablet (Ritalin) 20 mg PO DAILY ADHD 04/24/23 metoclopramide HCl 10 mg tablet 10 mg PO TID GASTROPARESIS 04/24/23 metoprolol succinate 25 mg tablet,extended release 24 hr 12.5 mg PO QHS HTN 04/24/23 nitroglycerin 0.4 mg sublingual tablet 0.4 mg sublingual Q5M PRN chest pain 04/24/23 ondansetron HCl 8 mg tablet 8 mg PO TID 04/24/23 pantoprazole 40 mg tablet,delayed release 40 mg PO QHS GERD 04/24/23 pregabalin 300 mg capsule (Lyrica) 300 mg PO BID FIBROMYALGIA 04/24/23 rosuvastatin 40 mg tablet (Crestor) 40 mg PO DAILY HLD 04/24/23 semaglutide 7 mg tablet (Rybelsus) 7 mg PO DAILY DIABETES 04/24/23 tenapanor 50 mg tablet (Ibsrela) 50 mg PO BID IBSC 04/24/23 albuterol sulfate 90 mcg/actuation aerosol inhaler 2 puff inhalation Q4H 07/24/23 oxycodone-acetaminophen 5 mg-325 mg tablet 1 tab PO Q6H PRN pain 07/24/23 sulfamethoxazole 800 mg-trimethoprim 160 mg tablet 1 tab PO BID 07/24/23 lisinopril 5 mg tablet 2.5 mg (1/2 x 5 mg) PO QHS HTN 30 days #0 tabs 07/30/23 psyllium husk (aspartame) 3 gram oral powder packet (Daily Fiber (psyllium-aspartame)) 1 packet PO DAILY PRN PRN Constipation #0 ea 07/30/23 Physical Exam Narrative Seen and examined on the day of discharge Patient vitals are controlled. Heart rate and blood pressure normal. Patient hypoxia improved. Oxygen tapered down to room air. Patient did not qualify for home oxygen but he states she has oxygen as needed at home on exertion and also CPAP. Evaluated by manager critical care. She had back surgery by Dr. Hooks in May but later got complicated with wound infection which required incision debridement for abscess on past 07/25/2023.No fever. Physical exam General: Alert, Oriented x3, Cooperative HEENT: Atraumatic, PERRLA, EOMI, Normocephalic Oral: Oral mucosa moist. No Gingival or Mucosal Lesions/ Ulcerations Neck: Supple, No JVD, Negative Carotid Bruits Lungs: Air entry diminished in bilateral lung bases. Bilateral wheezing has improved. No hypoxia. Cardiovascular: Regular rate, Regular Rhythm, Normal S1, Normal S2, No murmurs Abdomen: Bowel Sounds Present, Soft, Non Tender, Non-Distended : No renal angle tenderness. No suprapubic tenderness. Extremities: No edema, Capillary Refill Less than 3 Seconds Skin: Dressing is dry with no soakage or purulent distend.Overall wound looks healing after incision and drainage. No tenderness. Musculoskeletal: No Tenderness to Palpation of Joints or Extremities ROM full. Spine: No local tenderness around lumbar area. Lumbar spondylosis with recent back surgery Neurological: Cranial nerves II-XII grossly intact, DTR 2+/4. No acute focal neurological deficit. Psych/Mental Status: Normal Affect, Appropriate. Weight / BMI Weight Weight: 220 lb 14.451 oz Body Mass Index (BMI) 39.1 ABG / Lab / Microbiology Data 07/30/23 07:00 07/30/23 07:00 Laboratory: Laboratory Results - last 24 hr 07/30/23 07:00: WBC 4.3 L, RBC 4.03 L, Hgb 11.6 L, Hct 37.3, MCV 92.6, MCH 28.8, MCHC 31.1 L, RDW Std Deviation 53.4 H, RDW Coeff of Paolo 16.0 H, Plt Count 172, MPV 10.1, Immature Gran % (Auto) 0.200, Neut % (Auto) 41.6 L, Lymph % (Auto) 44.0 H, [place] % (Auto) 10.1 H, Eos % (Auto) 3.2, Baso % (Auto) 0.9, Absolute Neuts (auto) 1.8 L, Absolute Lymphs (auto) 1.91, Nucleated RBC % 0, Sodium 140, Potassium 4.2, Chloride 106, Carbon Dioxide 29.0, Anion Gap 5, BUN 10, Creatinine 0.92, Estim Creat Clear Calc 59.17, Est GFR (MDRD) Af Amer 83, Est GFR (MDRD) Non-Af 68, BUN/Creatinine Ratio 10.9, Glucose 90, Calcium 8.6 Microbiology: Microbiology 07/28/23 01:42 Blood Culture (Wb) - Right Wrist Blood Culture - Preliminary No growth in 48 hours. 07/28/23 01:12 Blood Culture (Wb) - Anticubital Left Blood Culture - Preliminary No growth in 48 hours. 07/27/23 19:10 Blood Culture (Wb) - Anticubital Right Blood Culture - Preliminary No growth in 48 hours. 07/27/23 19:05 Blood Culture (Wb) - Left Wrist Blood Culture - Preliminary No growth in 48 hours. 07/28/23 Unknown Wound - Back Gram Stain - Final 07/28/23 Unknown Wound - Back Wound Culture - Preliminary Coag Negative Staph 07/27/23 22:25 Urine, Clean Catch Urine Culture - Final Culture exhibits no growth. 07/27/23 19:37 Nasal Secretion SARS-CoV-2 & FLU Antigen (Rapid) - Final D/C Instructions Discharge Diet: No restrictions Weight Bearing Status: Weight bearing as tolerated Call your doctor if you observe: Fever of 101 or Higher, Coldness, Increased Pain, Numbness or Tingling, Change in Color, Inability to urinate, Inability to have a bowel movement, Using more than 1 pad per hour, Shortness of breath, Dizziness, Fainting spells, Swelling in the ankles, Chest pain, Prolonged hiccupping, Increased palpitations (irregular heartbeat) and Calf discomfort When: IN 2 WEEKS Meaningful Use Info Meaningful Use Diagnoses (Choose all that apply): None applicable Discharge Plan Admission Admit Date/Time: 07/27/23 23:58 Primary Reason for Your Visit: Surgical wound infection. Attending Provider: Fawad Argueta Primary Care Provider: Jane Flores Consulting Providers: Marcelino Martinez; Joshua Mario; Cony Boykin; Humberto Cheema; Silvana Tipton NP; Bereket Mcclain; Kali Hooks Instructions Additional Instructions / Restrictions: Follow-up wound clinic on next 3 days. Discharge Orders/Prescriptions Prescriptions: New Daily Fiber (psyllium-aspart) 3 gram Powder In Packet 1 packet PO DAILY PRN PRN (Reason: Constipation) Qty: 0 0RF Rx Instructions: [id number]-mzh-[id number]. Continued Rybelsus 7 mg tablet 7 mg PO DAILY Ibsrela 50 mg tablet 50 mg PO BID Rx Instructions: must administer immediately before first meal of day/breakfast and dinner metoclopramide HCl 10 mg tablet 10 mg PO TID Patient Comments: TAKE 1 TABLET BY MOUTH THREE TIMES A DAY pantoprazole 40 mg tablet,delayed release (DR/EC) 40 mg PO QHS Patient Comments: TAKE 1 TABLET BY MOUTH EVERY DAY ondansetron HCl 8 mg tablet 8 mg PO TID Patient Comments: TAKE 1 TABLET BY MOUTH EVERY 8 HOURS NEEDED FOR NAUSEA AND VOMITING desvenlafaxine succinate [Pristiq] 50 mg tablet extended release 24 hr 50 mg PO DAILY cyclobenzaprine 10 mg tablet 10 mg PO TID pregabalin [Lyrica] 300 mg capsule 300 mg PO BID methylphenidate HCl [Ritalin] 20 mg tablet 20 mg PO DAILY rosuvastatin [Crestor] 40 mg tablet 40 mg PO DAILY nitroglycerin 0.4 mg tablet, sublingual 0.4 mg sublingual Q5M PRN (Reason: chest pain) Patient Comments: PLACE 1 TABLET UNDER TONGUE EVERY 5 MINS, UP TO 3 DOSES NEEDED FOR CHEST PAIN lisinopril 5 mg tablet 2.5 mg PO QHS 30 Days Qty: 0 0RF Patient Comments: TAKE ONE-HALF TABLET BY MOUTH IN THE MORNING Rx Instructions: Hold for SBP less than 130 mmHg albuterol sulfate 90 mcg/actuation HFA aerosol inhaler 2 puff INHALATION Q4H Patient Comments: INHALE 2 PUFFS EVERY 4 HOURS NEEDED FOR SHORTNESS OF BREATH sulfamethoxazole-trimethoprim 800-160 mg tablet 1 tab PO BID oxycodone-acetaminophen 5-325 mg tablet 1 tab PO Q6H PRN (Reason: pain) Patient Comments: TAKE 1 TABLET BY MOUTH EVERY 6 HOURS NEEDED FOR PAIN Held metoprolol succinate 25 mg tablet extended release 24 hr 12.5 mg PO QHS Hold Instructions: Hold for 2 days. If heart rate more than 80/min and systolic blood pressure more than 120 mmHg, can resume under guidance of PCP. Patient Comments: TAKE 0.5 TAB(S) BY MOUTH AT NIGHT TIME. INSTR:DO NOT CRUSH OR CHEW (CONTROLLED RELEASE) Referrals / Follow Up: Marcelino Martinez MD [Med Staff - Active Staff] - Within 2 Weeks (Follow-up with nurse practitioner in 2 weeks. Outpatient PFT and sleep study.) Kali Hooks DO [Med Staff - Active Staff] - Within 1 Week Jane Flores DO [Primary Care Provider] - Bereket Mcclain MD [Med Staff - Active Staff] - Within 1 Month (As needed for antibiotic queries or recommendations) Disposition Disposition (needs filled in before D/C Order can be placed): Home Health Service Charges/Coding Visit Charges Inpatient E&M: 74855 Disch Hosp >30min
[2023-07-30 12:53] VITALS: BP 113/71; PULSE 81; RESP 16; TEMP 36; O2SAT 97
== END 2023-07-30 13:12 | disposition home health service (06) | DRG 314 ==
LOC: ED 22:06 → PCU 07-28 00:13
PROVIDERS: Internal Medicine Critical Care Medicine; Admitting Provider Internal Medicine; Emergency Provider Emergency Medicine; PCP Family Medicine; Visit Provider Internal Medicine
DX: I95.9 Hypotension, unspecified (principal); J96.21 Acute and chronic respiratory failure with hypoxia; E11.9 Type 2 diabetes mellitus without complications; I07.1 Rheumatic tricuspid insufficiency; I10 Essential (primary) hypertension; E78.00 Pure hypercholesterolemia, unspecified; I25.10 Atherosclerotic heart disease of native coronary artery without angina pectoris; G47.33 Obstructive sleep apnea (adult) (pediatric); F17.210 Nicotine dependence, cigarettes, uncomplicated; M79.7 Fibromyalgia; E66.9 Obesity, unspecified; F90.9 Attention-deficit hyperactivity disorder, unspecified type; Z95.5 Presence of coronary angioplasty implant and graft; R00.0 Tachycardia, unspecified; G89.4 Chronic pain syndrome; T81.89XD Other complications of procedures, not elsewhere classified, subsequent encounter; Z98.1 Arthrodesis status; Z99.89 Dependence on other enabling machines and devices
CPT/HCPCS: 36415; 71275; 80048; 80053; 81001; 82533; 83605; 83880; 84443; 84484; 85025; 85610; 85652; 85730; 87040; 87070; 87086; 87205; 87428; 93005; 93306; 94668; 97802; 99285; 99406; J7030; J7040; Q9957; Q9967; A4216

== ENCOUNTER → 2023-09-05 | Outpatient (CLI) | payer OTHER, SELFPAY ==
--- OUTSIDE RECORDS SUMMARY | 2023-09-05 09:04 | XMS RPT_ITS | CCD ---
Author Name Unknown Address [address] [place] [address] Organization [facility] Care Team Providers Care Development Consultant Name Role Phone Brendan Spivey Primary Care Provider [phone] Jane Mcallister DO Primary Care Provider Brendan Spivey MD Primary Care Provider DR JANE MCALLISTER DO Primary Care Physician [phone] Jane Mcallister DO Primary Care Provider SARAI MOSS Attending Unavailable MOSS, SARAI Wiley Referring Unavailable ESTERJANE MERA Primary Care Unavailable MOSS, SARAI Wiley Referring Unavailable ESTERJANE MERA Primary Care Unavailable ESTERJANE MERA Referring Unavailable ESTERLE, JANE Shafer Primary Care Unavailable CUTOVER, PROVIDER Referring Unavailable MELBA, DATINDER Attending Unavailable ESTEREDE, JANE Primary Care Unavailable CRESAP JUNIOR Attending Unavailable MELBA, EMILYINDER Attending Unavailable MELBA, EMILYINDER Referring Unavailable ESTEREDE, JANE Primary Care Unavailable Jane Mcallister MD Primary Care Provider JANE MCALLISTER Primary Care Unavailable MOSS, SARAI Wiley Attending Unavailable Allergies Allergy Classification Reported Allergen(s) Allergy Type Date of Onset Reaction(s) Facility (20 sources) Magnesium Salicylate; Translations: [magnesium salicylate] Drug Allergy 02-05-20 15 Hives, Swelling, Rash [facility], [place] (2 sources) Other Propensity to adverse reactions 02-05-20 15 Hives, Swelling, Rash [facility] (17 sources) Other Bartlett-3s; Translations: [OTHER OMEGA-3S] Propensity to adverse reactions to drug 02-05-20 15 Hives, Rash, Swelling [facility] (1 source) Bartlett-3 Acid Ethyl Esters (JAIL); Translations: [omega-3 polyunsaturated fatty acids] Drug Allergy Weal (disorder) [facility] Work Phone: NEGATED: Highlighted row has been ruled out! (2 sources) Other Propensity to adverse reactions 02-05-20 15 Hives, Swelling, Rash [facility] Work Phone: Medications Current Medications Medication Drug Class(es) Dates Sig (Normalized) Sig (Original) acetaminophen 325 mg / oxyCODONE hydrochloride 5 mg oral tablet (1 source) Opioid Agonist Start: 02-22-2022 End: 02-27-2022 take 1 tablet by mouth every six hours as needed for pain acetaminophen-ox yCODONE 325 mg-5 mg oral tablet Dose = 1 tab(s), Oral, q6hr, PRN as needed for pain, X 5 day(s), # 20 tab(s), 0 Refill(s), Humeral fracture, 81 Start Date: 02/22/22 Stop Date: 02/27/22 Status: Ordered aspirin 81 mg delayed release oral tablet (16 sources) Platelet Aggregation Inhibitor, Nonsteroidal Anti-inflammatory Drug Start: 11-17-2020 aspirin 81 mg oral delayed release tablet Dose : 81 mg = 1 tab(s), Oral, qDay, # 90 tab(s), 4 Refill(s), Pharmacy: [facility]/pharmacy #[id number], 160, cm, 11/17/20 11:06:00 EDT, Height, kg, 11/17/20 11:06:00 EDT, Dosing Weight Start Date: 11/17/20 Status: Ordered Completed/Discontinued Medications Medication Drug Class(es) Dates Sig (Normalized) Sig (Original) 24 hr amphetamine aspartate 7.5 mg / amphetamine sulfate 7.5 mg / dextroamphetamine saccharate 7.5 mg / dextroamphetamine sulfate 7.5 mg extended release oral capsule (13 sources) Central Nervous System Stimulant take 1 capsule by mouth once daily, then take 1 capsule by mouth every twenty-four hours amphetamine-dextr oamphetamine XR (ADDERALL XR) 30 mg 24 hr capsule Take 30 mg by mouth once daily. 0 Active Problems Active Problems Problem Classification Problem Date Documented Da te Episodic/Chronic Anxiety disorders (20 sources) Anxiety state; Translations: [Generalized anxiety disorder] Onset: 8 11-14-2017 Chronic Cardiac dysrhythmias (1 source) Palpitations 11-17-2020 Episodic Chronic kidney disease (16 sources) Chronic kidney disease stage 2; Translations: [Chronic kidney disease, stage 2 (mild)] Onset: 1 01-01-2021 Chronic Congestive heart failure; nonhypertensive (1 source) Left ventricular systolic dysfunction 11-18-2019 Chronic Coronary atherosclerosis and other heart disease (15 sources) Coronary arteriosclerosis; Translations: [Atherosclerotic heart disease of eek coronary artery without angina pectoris] Onset: 1 01-01-2021 Chronic Diabetes mellitus with complications (14 sources) Secondary diabetes mellitus; Translations: [Other specified diabetes mellitus with diabetic autonomic (poly)neuropathy] Onset: 1 12-23-2020 Chronic Diabetes mellitus without complication (19 sources) Type 2 diabetes mellitus without complication; Translations: [Type 2 diabetes mellitus without complications] Onset: 6 04-06-2016 Chronic Disorders of lipid metabolism (15 sources) Hyperlipidemia; Translations: [Hyperlipidemia, unspecified] Onset: 8 11-14-2017 Chronic Esophageal disorders (14 sources) Gastroesophageal reflux disease; Translations: [Gastro-esophageal reflux disease without esophagitis] Onset: 8 11-14-2017 Chronic Essential hypertension (20 sources) Essential hypertension; Translations: [Essential (primary) hypertension] Onset: 6 04-06-2016 Chronic Fluid and electrolyte disorders (1 source) Hypokalemia; Translations: [Hypokalemia] Episodic Fracture of upper limb (1 source) Closed fracture of shaft of humerus; Translations: [Unspecified fracture of shaft of humerus, unspecified arm, initial encounter for closed fracture] Onset: 2 Episodic Headache; including migraine (18 sources) Migraine with aura; Translations: [Migraine with aura, not intractable, without status migrainosus] Onset: 5 03-10-2015 Chronic Nausea and vomiting (2 sources) Nausea and vomiting; Translations: [Nausea] Episodic Nonspecific chest pain (1 source) Chest pain 03-30-2020 Episodic Nutritional deficiencies (14 sources) Malnutrition (calorie); Translations: [Moderate protein-calorie malnutrition] Onset: 1 06-07-2021 Chronic Other connective tissue disease (2 sources) Trigger thumb of right hand; Translations: [Trigger finger of right thumb] Onset: 6 04-06-2016 Other female genital disorders (18 sources) Dyspareunia; Translations: [Dyspareunia] Onset: 5 03-10-2015 Chronic Other gastrointestinal disorders (3 sources) Chronic idiopathic constipation; Translations: [Chronic idiopathic constipation] Chronic Other gastrointestinal disorders (3 sources) Irritable bowel syndrome characterized by constipation; Translations: [Irritable bowel syndrome with constipation] Chronic Other gastrointestinal disorders (1 source) Chronic idiopathic constipation; Translations: [Chronic idiopathic constipation] Onset: 3 Chronic Other nutritional; endocrine; and metabolic disorders (18 sources) Body mass index 30+ - obesity; Translations: [Body mass index (BMI) 39.0-39.9, adult] Onset: 5 03-10-2015 Chronic Other nutritional; endocrine; and metabolic disorders (14 sources) Body mass index 40+ - severely obese; Translations: [Body mass index (BMI) 40.0-44.9, adult] Onset: 6 11-18-2015 Chronic Other screening for suspected conditions (not mental disorders or infectious disease) (3 sources) Patient encounter status; Translations: [Encounter for screening for malignant neoplasm of colon] Onset: 3 Episodic Residual codes; unclassified (15 sources) Obstructive sleep apnea syndrome; Translations: [Obstructive sleep apnea (adult) (pediatric)] Onset: 1 01-01-2021 Chronic Residual codes; unclassified (1 source) Tobacco user 11-18-2019 Episodic Screening and history of mental health and substance abuse codes (1 source) Ex-smoker 03-30-2020 Episodic Past or Other Problems Problem Classification Problem Date Documented Da te Episodic/Chronic Other connective tissue disease (16 sources) Trigger thumb of right hand; Translations: [Trigger thumb, right thumb] Onset: 6 04-06-2016 Episodic Other connective tissue disease (14 sources) Fibromyalgia; Translations: [Fibromyalgia] Onset: 1 01-01-2021 Episodic Other disorders of stomach and duodenum (17 sources) Gastroparesis syndrome; Translations: [Gastroparesis] Onset: 8 11-14-2017 Episodic Other gastrointestinal disorders (15 sources) Disorder of gastrointestinal tract; Translations: [Other specified diseases of the digestive system] Onset: 1 05-05-2021 Episodic Other injuries and conditions due to external causes (2 sources) Unspecified injury of head, initial encounter; Translations: [Unspecified injury of head, initial encounter] Onset: 2 Episodic Residual codes; unclassified (2 sources) H/O: hysterectomy; Translations: [S/P hysterectomy with oophorectomy] Onset: 5 03-10-2015 Episodic Residual codes; unclassified (14 sources) Tobacco use and exposure - finding; Translations: [Tobacco use] Onset: 1 01-01-2021 Episodic Spondylosis; intervertebral disc disorders; other back problems (2 sources) Spinal stenosis, lumbar region without neurogenic claudication; Translations: [Spinal stenosis, lumbar region without neurogenic claudication] Onset: 2 Episodic Substance-related disorders (14 sources) Marijuana user; Translations: [Cannabis use, unspecified, uncomplicated] Onset: 1 01-01-2021 Episodic Syncope (2 sources) Syncope and collapse; Translations: [Syncope and collapse] Onset: 2 Episodic Results Test Name Value Interpretation Reference Range Facil ity Vital Signs Date Time Vital Sign Value Performing Clinician Facility 11-29-2022 [id number] Body height 160 cm Sarai Moss [employer] Work Phone: [facility] 11-29-2022 13:040 Body weight 94.8 kg Sarai Moss DO Work Phone: [facility] 11-29-2022 [id number]:19040 Diastolic blood pressure 63 mm[Hg] Sarai Paze DO Work Phone: [facility] 11-29-2022 13:19-0400 Heart rate 88 /min Sarai Moss DO Work Phone: [facility] 11-29-2022 13:19-0400 Respiratory rate 16 /min Sarai Moss DO Work Phone: [facility] 11-29-2022 13:19-0400 SaO2% (BldA) [Mass fraction] 98 % Sarai Moss DO Work Phone: [facility] 11-29-2022 13:19-0400 Systolic blood pressure 104 mm[Hg] Sarai Moss DO Work Phone: [facility] 02-22-2022 13:02-0400 Body height [address] RADHA SEGURA MD [facility] 02-22-2022 13:02-0400 Body temperature 98.06 [degF] DR RADHA SEGURA MD [facility] 02-22-2022 13:02-0400 Body weight [address] RADHA SEGURA MD [facility] 02-22-2022 13:02-0400 Diastolic blood pressure 79 mm[Hg] DR RADHA SEGURA MD [facility] 02-22-2022 13:02-0400 Heart rate 85 /min DR RADHA SEGURA MD [facility] 02-22-2022 13:02-0400 Respiratory rate 16 /min DR RADHA SEGURA MD [facility] 02-22-2022 13:02-0400 Systolic blood pressure 123 mm[Hg] DR RADHA SEGURA MD [facility] 01-05-2022 14:07-0400 Body height 160 cm Wood Howard MD Work Phone: [facility] 01-05-2022 14:07-0400 Body weight 76.61 kg Wood Howard MD Work Phone: [facility] 01-05-2022 14:07-0400 Diastolic blood pressure 59 mm[Hg] Wood Howard MD Work Phone: [facility] 01-05-2022 14:07-0400 Heart rate 91 /min Wood Howard MD Work Phone: [facility] 01-05-2022 14:07-0400 Systolic blood pressure 95 mm[Hg] Wood Howard MD Work Phone: [facility] 10-05-2020 19:00-0500 BP Diastolic 62 mm[Hg] [place], [place] 10-05-2020 19:00-0500 BP Systolic 97 mm[Hg] [place] 10-05-2020 19:00-0500 Pulse (Heart Rate) 88 /min [place], [place] 10-05-2020 19:00-0500 Pulse Oximetry 98 % [place], [place] 10-05-2020 19:00-0500 Respiratory Rate 16 /min [place], [place] 10-05-2020 16:03-0500 BMI (Body Mass Index) 28.32 kg/m2 [place], [place] 10-05-2020 16:03-0500 Body Temperature 97.7 [degF] [place], [place] 10-05-2020 16:03-0500 Body weight 74.84 kg [place], [place] Encounters Encounter Date Encounter Type Care Provider Facility Start: 07-12-2023 Refill Sarai saldana DO Work Phone: Gastroenterology Procedures Date Procedure Procedure Detail Performing Clinician Start: 03-02-2023 End: 03-02-2023 Screening mammography bi 2-view breast inc cad Jane Mcallister DO Work Phone: Start: 01-27-2023 Colonoscopy Sarai Moss DO Work Phone: Start: 11-24-2021 Screening digital breast tomosynthesis bi Jane Mcallister DO Work Phone: Start: 11-20-2020 Us retroperitoneal real time w/image limited Steve Wilhelm Work Phone: Start: 11-17-[address] RADHA SEGURA MD Start: 10-05-2020 [facility] Work [facility]: Start: 10-05-2020 Radex abd compl aqt abd w/s/e/d views 1 view ch Thomas Blanc Work Phone: Start: 10-05-2020 [facility] Work [facility]: Start: 10-05-2020 [facility] of troponin [facility] Work Phone: Start: 10-05-2020 Blood count complete auto&auto difrntl wbc Thomas Blanc Work Phone: Start: 10-05-2020 [facility] Work Phone: Start: 10-05-2020 Ecg routine ecg w/least 12 lds w/i&r Thomas Blanc Work Phone: Start: 10-05-2020 Gluc bld gluc mntr dev cleared fda spec home use Thomas Andersona Work Phone: Start: 09-22-2020 Follow-up visit Start: 09-04-[address] RADHA SEGURA MD Start: 04-09-[address] RADHA SEGURA MD Start: 10-23-[address] RADHA Meyers Start: 10-22-[address] RADHA SEGURA MD Start: 10-21-2019 Follow-up visit Start: 03-10-2015 H/O: hysterectomy S/P hysterectomy with oophorectomy Jane Mcallister DO Work Phone: Abdominal hysterectomy DR BRADY SEGURA MD section DR RADHA CHAMPAGNE MD Cholecystectomy DR RADHA NORIEGA MD Decompression of med antonio nerve DR RADHA SEGURA MD Plan of Treatment Date Care Activity Detail Author Start: 03-02-2024 Mammography [facility] Start: 01-28-2024 Colonoscopy COLONOSCOPY [facility] Start: 01-28-2024 COLORECTAL CANCER SCREENING COLORECTAL CANCER SCREENING [facility] Start: 11-30-2023 BP CONTROLLED (<130/80) BP CONTROLLED (<130/80) [facility] Start: 11-25-2023 Screening for malignant neoplasm of breast Breast cancer screen [facility] Start: 05-05-2023 Covid-19 Vaccine () Covid-19 Vaccine () [facility] Start: 05-05-2023 Influenza vaccination [facility] Start: 01-05-2023 BP CONTROLLED (<130/80) BP CONTROLLED (<130/80) [facility] Start: 05-05-2022 Influenza vaccination [facility] Start: 01-01-2022 BP CONTROLLED (<130/80) BP CONTROLLED (<130/80) [facility] Start: 10-21-2021 Hemoglobin A1c measurement A1C test (Diabetic or Prediabetic) [facility] Start: 10-05-2021 Creatinine measurement Creatinine monitoring [facility] Start: 10-05-2021 Potassium monitoring Potassium monitoring [facility] Start: 06-22-2021 COVID-19 VACCINE (3 - Booster for Moderna series) COVID-19 VACCINE (3 - Booster for Moderna series) [facility] Start: 2021 Screening for malignant neoplasm of breast Breast cancer screen [facility] Start: 2021 Shingles Vaccine (1 of 2) Shingles Vaccine (1 of 2) [facility] Start: 2021 SHINGRIX VACCINE (1 of 2) SHINGRIX VACCINE (1 of 2) [facility] Start: 05-05-2021 Influenza vaccination Flu vaccine (#1) [facility] Start: 04-20-2021 Hemoglobin A1c/Hemoglobin.total in Blood HBA1C [facility] Start: 03-17-2021 COVID-19 VACCINE (3 - Booster for Moderna series) COVID-19 VACCINE (3 - Booster for Moderna series) [facility] Start: 05-05-2020 Influenza vaccination Flu vaccine (#1) [place] Start: 2016 COLOGUARD (FIT-DNA) COLOGUARD (FIT-DNA) [facility] Start: 2016 Colonoscopy COLONOSCOPY [facility] Start: 2016 COLORECTAL CANCER SCREENING COLORECTAL CANCER SCREENING [facility] Start: [address] COLONOGRAPHY [facility] Start: 2016 FECAL OCCULT BLOOD FECAL OCCULT BLOOD [facility] Start: 2016 Screening for malignant neoplasm of colon [facility] Start: 2016 SIGMOIDOSCOPY SIGMOIDOSCOPY [facility] Start: 2011 Lipid panel Lipid screen [place] Start: 2011 Mammography MAMMOGRAM [facility] Start: 03-04-2009 DTaP/Tdap/Td vaccine (1 - Tdap) DTaP/Tdap/Td vaccine (1 - Tdap) [facility] Start: 03-04-2009 Urine microalbumin profile [facility] Start: 2001 HPV TESTING HPV TESTING [facility] Start: 1992 PAP TESTING PAP TESTING [facility] Start: 1990 DTaP/Tdap/Td vaccine (1 - Tdap) DTaP/Tdap/Td vaccine (1 - Tdap) [place] Start: 1990 HEPATITIS B (1 of 3 - Risk 3-dose series) HEPATITIS B (1 of 3 - Risk 3-dose series) [facility] Start: 1990 Hepatitis B vaccine (1 of 3 - Risk 3-dose series) Hepatitis B vaccine (1 of 3 - Risk 3-dose series) [facility] Start: 1989 ANNUAL PCP TEAM CHRONIC DISEASE VISIT ANNUAL PCP TEAM CHRONIC DISEASE VISIT [facility] Start: 1989 Diabetic microalbuminuria test Diabetic microalbuminuria test [facility] Work Phone: Start: 1989 Diabetic retinal exam Diabetic retinal exam [facility] Start: 1989 HEMOGLOBIN/HEMATOCRIT HEMOGLOBIN/HEMATOCRIT [facility] Start: 1989 Hepatitis B surface antibody level LDL CHOLESTEROL [facility] Start: 1989 HEPATITIS C SCREENING HEPATITIS C SCREENING [facility] Start: 1989 Hepatitis C screening Hepatitis C screen [facility] Start: 1989 HIV SCREENING HIV SCREENING [facility] Start: 1989 SERUM CREATININE SERUM CREATININE [facility] Start: 1989 Urine screening for protein Diabetic microalbuminuria test [facility] Start: 1987 COVID-19 Vaccine (1) COVID-19 Vaccine (1) [facility] Work Phone: Start: 1987 ONE PNEUMOVAX PRIOR TO AGE 65 ONE PNEUMOVAX PRIOR TO AGE 65 [facility] Start: 1986 HIV screening HIV screen [facility] Start: 1983 Depression Screen Depression Screen [facility] Start: 1981 3 comp foot exam completed DIABETIC FOOT EXAM [facility] Start: 1981 Diabetic foot examination Diabetic foot exam [facility] Start: 1981 Diabetic retinal exam Diabetic retinal exam [facility] Work Phone: Start: 1981 HbA1c (Bld) [Mass fraction] A1C test (Diabetic or Prediabetic) [facility] Work Phone: Start: 1981 Hepatitis B screening URINE ALBUMIN:CREATININE RATIO [facility] Start: 1981 Hepatitis C antibody, confirmatory test DILATED RETINAL EXAM [facility] Start: 1981 Lipid panel [facility] Start: 1977 PNEUMOCOCCAL (1 - PCV) PNEUMOCOCCAL (1 - PCV) [facility] Start: 1977 Pneumococcal 0-64 years Vaccine (1 - PCV) Pneumococcal 0-64 years Vaccine (1 - PCV) [facility] Start: 1977 Pneumococcal 0-64 years Vaccine (1 of 1 - PPSV23) Pneumococcal 0-64 years Vaccine (1 of 1 - PPSV23) [facility] Work Phone: Start: 1977 Pneumococcal 0-64 years Vaccine (1 of 2 - PPSV23) Pneumococcal 0-64 years Vaccine (1 of 2 - PPSV23) [facility] Start: 1977 Pneumococcal vaccination Pneumococcal Vaccine (1 - PCV) [facility] Start: 1976 COVID-19 Vaccine (1) COVID-19 Vaccine (1) [facility] Start: 1971 HEPATITIS B (1 of 3 - 3-dose series) HEPATITIS B (1 of 3 - 3-dose series) [facility] Start: 1971 Hepatitis B Vaccine (1 of 3 - 3-dose series) Hepatitis B Vaccine (1 of 3 - 3-dose series) [facility] Start: 1971 Hepatitis C screening Hepatitis C screen [facility] EKG 12 Lead EKG 12 Lead ECG Routine 10/05/2020 4:27 PM [place], [place] End: 12-31-2023 Screening colonoscopy COLONOSCOPY SCREENING Endoscopy Routine Screening for malignant neoplasm of colon 1 Occurrences starting 12/30/2022 until 12/31/2023 [facility] Work Phone: Immunizations Immunization Date Immunization Notes Care Provider Fa zaid 06-21-2019 influenza virus vacc ine, unspecified formulation Sarai Moss DO Work Phone: [facility] 03-03-2009 tetanus and diphther ia toxoids, not adsorbed, for adult use Sarai Moss DO Work Phone: [facility] Payers Date Payer Category Payer Private Health Insurance [employer] A ETNA CHOICE POS II [id number] 2020-Present [phone] [address] [place] [address] POS [id number] 2020 Private Health Insurance [id number] 2016 Private Health Insurance [id number] 2015 Unknown BCBS [place] - [place] [id number] 2015-Present [address] [place] [address] [id number] Social History Date Type Detail Facility Start: 12-30-2016 End: 11-14-2017 Tobacco smoking status NHIS Current every day smoker [facility] Start: 12-30-2016 End: 09-27-2022 Cigarettes smoked [facility] (pack per day[facility] Start: 12-30-2016 End: 11-14-2017 Tobacco use and exposure [facility] Start: 12-30-2016 End: 01-27-2023 Alcohol intake Current drinker of alcohol (finding) [facility] Start: 03-10-2015 Alcohol Comment [facility] Start: 1970 Sex Assigned At Not on file [facility] Start: 12-26-2021 End: 01-05-2022 Exposure to SARS-CoV-2 (event) Not sure [facility] History of tobacco use Cigarette Smoker [facility] Start: 10-27-2015 History SDOH Alcohol Comment occasional [facility] Start: 1970 Sex Assigned At Female C [facility] Start: 10-21-2019 Tobacco smoking status Heavy t obacco smoker (finding) [facility] Start: 09-27-2022 End: 01-27-2023 Tobacco use panel [facility] National Score (1-10 0), lower number is lower risk 77 [facility] Start: 12-22-2020 Gender identity Identifies as female gender (finding) [facility] Start: 12-22-2020 Sexual orientation Heterosexual (adrianne salgado) [facility] Functional Status Date Assessment Result Facility 02-22-2022 Functional Status ID band on, Allergy Band on, Call device within reach, Bed in low position, Wheels locked [facility] Mental Status Date Assessment Result Facility 02-22-2022 Mental Status Oriented x 4 [facility] Clinical Notes 11-18-2015 to 07-14-2023 Telephone Encounter - Jolie Springer - 07/14/2023 9:36 AM ESTTelephone Encounter - Salina Gray LPN 07/04/2023 10:51 AM EDTTelephone Encounter - Jordi Wolff MA - 02/28/2023 8:58 AM EDT Note Date & Type Note Facility 07-14-2023 Miscellaneous Notes Called and spoke with patient and she states she is still taking both the Ibsrela and Reglan and they need to be sent to the [facility]. WALKER 11/24/[address] Moss. Please review and sign. Thanks documented in this encounter [facility] 07-04-2023 Miscellaneous Notes Trajector Disability form release of information form faxed to Medical records and scanned into [employer]. documented in this encounter [facility] 02-28-2023 Miscellaneous Notes WALKER=11/29/22 Spoke with patient she does need a refill Mediation pended please file Rx request if appropriate Patient and pharmacy verified documented in this encounter [facility] 12-30-2022 Instructions Sarai Moss DO - 12/30/2022 8:51 AM EDT Images from the original note were not included. Bowel Preparation Instructions for: Golytely, Nulytely, Trilyte or Colyte (polyethylene glycol 3350 and electrolytes) IF YOU DO NOT FOLLOW THESE DIRECTIONS, YOUR COLONOSCOPY WILL BE CANCELLED. Etienne Instructions: Your bowel must be empty so that your doctor can clearly view your colon. Follow all of the instructions in this handout EXACTLY as they are written. Do NOT eat any solid food the ENTIRE day before your colonoscopy. Drink only clear liquids. Buy your bowel preparation at least 5 days before your colonoscopy. TRANSPORTATION on the Day of Your Exam A responsible person MUST be present with you at Check In prior to your colonoscopy and REMAIN in the endoscopy area until you are discharged. You are NOT ALLOWED to drive, take a taxi or bus, or leave the Endoscopy Center ALONE. If you do not have a responsible route driver coin machines (family member or friend) with you to take you home, your exam cannot be done with sedation and will be cancelled. Please bring a list of all of your current medications, including any Over-the Counter medications with you. Medications If you take insulin, diabetic medications or blood thinners such as Coumadin (warfarin), Plavix (clopidogrel), Ticlid (ticlopidine hydrochloride), Agrylin (anagrelide), Xarelto (Rivaroxaban), Pradaxa (Dabigatran), Eliquis (Apixaban), and Effient (Prasugrel). You MUST call the doctors who orders those medicines for instructions on altering the dosage before your colonoscopy. All other medications should be taken the day of the exam with a sip of water including ASPIRIN. Five (5) Days Before Your Colonoscopy Do NOT take medicines that stop diarrhea - such as Imodium, Kaopectate, or Pepto Bismol. Do NOT take fiber supplements - such as Metamucil, Citrucel, or Perdiem. Do NOT take products that contain iron - such as multi-vitamins (the label lists what is in the products). Do NOT take Vitamin E. Buy the prescription bowel preparation solution at your local pharmacy or drugstore pharmacy. 08/2019 Bowel Preparation Instructions for: Golytely, Nulytely, Trilyte or Colyte (polyethylene glycol 3350 and electrolytes) Three (3) Days Before Your Colonoscopy Do NOT eat high-fiber foods - such as popcorn, beans, seeds (flax, sunflower, quinoa), multigrain bread, nuts, salad/vegetables, or fresh and dried fruit. One (1) Day Before Your Colonoscopy Only drink clear liquids the ENTIRE DAY before your colonoscopy. Do NOT eat any solid foods. Drink at least 8 ounces of clear liquids every hour after waking up. The clear liquids you can drink include: Clear Liquid (NO RED LIQUIDS) DO NOT DRINK Gatorade, Pedialyte or Powerade Clear broth or bouillon Coffee or tea (no milk or non-dairy creamer) Carbonated and non-carbonated soft drinks Julián-Aid or other fruit flavored drinks Strained fruit juices (no pulp) Jell-O, popsicles, hard candy Water Alcohol Milk or non-dairy creamers Noodles or vegetables in soup Juice with pulp Liquid you cannot see through Do not use tobacco/vaping products The bowel preparation solution will be consumed in two parts. Mix the solution the evening before your colonoscopy and refrigerate before drinking. You may add the flavor pack that came with the bowel preparation. Do NOT add ice, sugar or any other flavorings to the solution. Part 1 At 6:00 PM - Evening before your colonoscopy Drink an 8-oz glass of bowel preparation every 10 minutes for a total of 8 glasses. You may continue to drink clear liquids until midnight. Part 2 On the day of your colonoscopy you may drink clear liquids up to (three) 3 hours before your procedure. 4 1/2 hours before your colonoscopy Drink an 8-oz glass of bowel preparation every 10 minutes for a total of 8 glasses. Fifteen (15) minutes later, drink an 8-oz glass of clear liquids every 15 minutes for a total of 2 glasses. You may continue to drink clear liquids up to (three) 3 hours before your exam. 2 08/2019 documented in this encounter [facility] 12-28-2022 Miscellaneous Notes Patient states PCP wants her to ask you if colonoscopy will be ordered since patient is over 51 years old and has never had one. Please review and advise documented in this encounter [facility] 12-22-2022 Miscellaneous Notes Received Determination of Medical Necessity paperwork from [employer] at [phone], to be completed. Called [facility] at [phone] and spoke with [employer], asking about form and she stated they tried doing a PA on CMM for the Gimoti and it can back stating it could not be done epa so this form is their way of sending information to the insurance to try and get the Gimoti approved. [employer] ID# [id number] Group# [id number] Form completed,signed and faxed with supporting onformation to [employer] at [phone] with fax verification received. documented in this encounter [facility] 11-29-2022 Note HNO ID: [id number] Author: RT Kimmy(R) Service: ? Author Type: Technologist Type: Progress Notes Filed: 11/29/2022 2:14 PM Note Text: Radiology Service Progress Note PATIENT NAME: Kelsey Kenny DATE OF SERVICE: November 29, 2022 TIME: 2:14 PM PATIENT IDENTITY VERIFICATION COMPLETED USING TWO (2) IDENTIFIERS: Name and Date of confirmed by patient verbally. FALL SCREENING: Has the patient had 2 falls in the last year or 1 fall with injury or currently using an Ambulatory Assistive Device (Walker, Cane, Wheelchair, Crutches, etc.)? No PATIENT GENDER DATA: Female. status: : No status: NO. PATIENT RELEVANT IMPLANT DATA REVIEWED: Yes RADIOLOGY DEPARTMENT: General X-ray: Exam(s) Completed: Abdomen X-Ray: Abdomen PERIPHERAL IV DATA: Not applicable SIGNED BY: RT Kimmy(R) November 29, 2022 2:14 PM [facility] 11-29-2022 Note HNO ID: [id number] Author: Sarai Moss, DO Service: ? Author Type: Physician Type: Progress Notes Filed: 11/29/2022 1:44 PM Note Text: FOLLOW UP VISIT CHIEF COMPLAINT Patient presents with: Follow Up Gastroparesis Ms. Kenny is here today for follow-up of: Gastroparesis constipation. HPI I saw this 52y/o in f/u for her gi issues. She has had random episodes of vomiting about every other week and will last for 2 days. The bowels are every other day but vary in consistency. Current Outpatient Medications Medication Sig Dispense Refill buprenorphine (BUTRANS) 5 mcg/hour one time a week. Pregabalin (LYRICA) 200 mg capsule Take 200 mg by mouth twice daily. IBSRELA 50 mg tablet TAKE 1 TABLET BY MOUTH TWICE A DAY 60 tablet 5 LORazepam (ATIVAN) 1 mg tablet Take 1 mg by mouth every 6 hours as needed. cyclobenzaprine (FLEXERIL) 10 mg tablet Take by mouth three times daily. meloxicam (MOBIC) 15 mg tablet Take 15 mg by mouth once daily. ondansetron (ZOFRAN) 8 mg tablet Take 1 tablet by mouth every 8 hours as needed for nausea/vomiting. 270 tablet 3 metoclopramide HCl (REGLAN) 10 mg tablet Take 1 tablet by mouth three times daily. [address] (PROTONIX) 40 mg tablet Take 1 tablet by mouth once daily. 90 tablet 2 aspirin 81 mg chewable tablet Take 81 mg by mouth once daily. lisinopril (ZESTRIL, PRINIVIL) 5 mg tablet Take 2.5 mg by mouth once daily. nitroglycerin sublingual (NITROQUICK) 0.4 mg SL tablet Take by mouth as needed. rosuvastatin (CRESTOR) 40 mg tablet Take 40 mg by mouth once daily. RYBELSUS 7 mg tab Take 1 tablet by mouth once daily. amphetamine-dextroamphetamine XR (ADDERALL XR) 30 mg 24 hr capsule Take 30 mg by mouth once daily. pregabalin (LYRICA) 100 mg capsule Take 100 mg by mouth twice daily. LINZESS 145 mcg capsule TAKE 1 CAPSULE BY MOUTH DAILY (6 AM). 30 capsule 6 gabapentin (NEURONTIN) 300 mg capsule Take 300 mg by mouth three times daily. multivit,thx,calcium,iron,mins (MULTIVITAMIN AND MINERAL ORAL) Take 1 tablet by mouth once daily. pantoprazole DR (PROTONIX) 40 mg tablet Take 1 tablet by mouth twice daily. 60 tablet 2 escitalopram oxalate (LEXAPRO) 20 mg tablet Take 20 mg by mouth once daily. metoprolol succinate ER (TOPROL XL) 25 mg 24 hr tablet Take 25 mg by mouth once daily. BRILINTA 90 mg tablet Take 90 mg by mouth twice daily. No current facility-administered medications for this visit. ALLERGIES Allergen Reactions Magnesium Salicylate Swelling Other Bartlett-3s Hives, Rash, Swelling Sunil's back pills Social History Tobacco Use Smoking status: Every Day Packs/day: 0.75 Types: Cigarettes Smokeless tobacco: Never Vaping Use Vaping Use: current everyday user Substance Use Topics Alcohol use: Yes Comment: occasional Drug use: Yes Types: Marijuana Comment: daily Medical History: No changes since last visit. REVIEW OF SYSTEMS: GENERAL: weight stable, no fevers. CARDIOVASCULAR: No chest pain, no edema RESPIRATORY: No dyspnea : neg BEARINGIZER: neg The remainder of the review of systems are negative. Reviewed with patient during visit today. PHYSICAL EXAMINATION: BP 104/63 Pulse 88 Resp 16 Ht 5' 3 (1.60m) Wt 208 lb 15.9 oz (94.8kg) SpO2 98% BMI 37.03 kg/(m2). GENERAL APPEARANCE: Well developed and well nourished. SKIN: Skin color, texture, turgor normal. No rashes or lesions. EYES: Conjunctiva normal without icterus. OROPHARYNX: lips, mucosa, and tongue normal, teeth and gums normal NECK: Supple, full range of motion, no lymphadenopathy, normal thyroid, no carotid bruits and no JVD LUNGS: Normal breath sounds, Clear to auscultation, No wheezes, No crackles. HEART:Normal PMI, Regular rate and rhythm, Normal heart sounds, S1 and S2 and No murmurs. NEURO: Alert and oriented in no acute distress. ABDOMEN: Normal bowel sounds, abdomen flat with no distention, Soft, non-tender, no hepatomegaly. no palpable masses, no abdominal bruits, no rebound and no rigidity. EXTREMITIES:Extremities normal, No deformities, No skin discoloration, No edema . Assessment Encounter Diagnosis ICD-10-CM 1. Chronic idiopathic constipation K59.04 XR ABDOMEN 1V SUPINE 2. Nausea R11.0 ondansetron (ZOFRAN) 8 mg tablet 3. Gastroparesis K31.84 metoclopramide HCl (GIMOTI) 15 mg/spray nasal spray Sarai Moss DO 11/29/2022 [facility] 11-29-2022 History of Present illness Narrative Radiology Service Progress Note PATIENT NAME: Kelsey Kenny DATE OF SERVICE: November 29, 2022 TIME: 2:14 PM PATIENT IDENTITY VERIFICATION COMPLETED USING TWO (2) IDENTIFIERS: Name and Date of confirmed by patient verbally. FALL SCREENING: Has the patient had 2 falls in the last year or 1 fall with injury or currently using an Ambulatory Assistive Device (Walker, Cane, Wheelchair, Crutches, etc.)? No PATIENT GENDER DATA: Female. status: : No status: NO. PATIENT RELEVANT IMPLANT DATA REVIEWED: Yes RADIOLOGY DEPARTMENT: General X-ray: Exam(s) Completed: Abdomen X-Ray: Abdomen PERIPHERAL IV DATA: Not applicable SIGNED BY: RT Kimmy(R) November 29, 2022 2:14 PM documented in this encounter [facility] 11-29-2022 History of Present illness Narrative FOLLOW UP VISIT CHIEF COMPLAINT Patient presents with: Follow Up Gastroparesis Ms. Kenny is here today for follow-up of: Gastroparesis constipation. HPI I saw this 52y/o in f/u for her gi issues. She has had random episodes of vomiting about every other week and will last for 2 days. The bowels are every other day but vary in consistency. Current Outpatient Medications Medication Sig Dispense Refill buprenorphine (BUTRANS) 5 mcg/hour one time a week. Pregabalin (LYRICA) 200 mg capsule Take 200 mg by mouth twice daily. IBSRELA 50 mg tablet TAKE 1 TABLET BY MOUTH TWICE A DAY 60 tablet 5 LORazepam (ATIVAN) 1 mg tablet Take 1 mg by mouth every 6 hours as needed. cyclobenzaprine (FLEXERIL) 10 mg tablet Take by mouth three times daily. meloxicam (MOBIC) 15 mg tablet Take 15 mg by mouth once daily. ondansetron (ZOFRAN) 8 mg tablet Take 1 tablet by mouth every 8 hours as needed for nausea/vomiting. 270 tablet 3 metoclopramide HCl (REGLAN) 10 mg tablet Take 1 tablet by mouth three times daily. [address] (PROTONIX) 40 mg tablet Take 1 tablet by mouth once daily. 90 tablet 2 aspirin 81 mg chewable tablet Take 81 mg by mouth once daily. lisinopril (ZESTRIL, PRINIVIL) 5 mg tablet Take 2.5 mg by mouth once daily. nitroglycerin sublingual (NITROQUICK) 0.4 mg SL tablet Take by mouth as needed. rosuvastatin (CRESTOR) 40 mg tablet Take 40 mg by mouth once daily. RYBELSUS 7 mg tab Take 1 tablet by mouth once daily. amphetamine-dextroamphetamine XR (ADDERALL XR) 30 mg 24 hr capsule Take 30 mg by mouth once daily. pregabalin (LYRICA) 100 mg capsule Take 100 mg by mouth twice daily. LINZESS 145 mcg capsule TAKE 1 CAPSULE BY MOUTH DAILY (6 AM). 30 capsule 6 gabapentin (NEURONTIN) 300 mg capsule Take 300 mg by mouth three times daily. multivit,thx,calcium,iron,mins (MULTIVITAMIN AND MINERAL ORAL) Take 1 tablet by mouth once daily. pantoprazole DR (PROTONIX) 40 mg tablet Take 1 tablet by mouth twice daily. 60 tablet 2 escitalopram oxalate (LEXAPRO) 20 mg tablet Take 20 mg by mouth once daily. metoprolol succinate ER (TOPROL XL) 25 mg 24 hr tablet Take 25 mg by mouth once daily. BRILINTA 90 mg tablet Take 90 mg by mouth twice daily. No current facility-administered medications for this visit. ALLERGIES Allergen Reactions Magnesium Salicylate Swelling Other Bartlett-3s Hives, Rash, Swelling Sunil's back pills Social History Tobacco Use Smoking status: Every Day Packs/day: 0.75 Types: Cigarettes Smokeless tobacco: Never Vaping Use Vaping Use: current everyday user Substance Use Topics Alcohol use: Yes Comment: occasional Drug use: Yes Types: Marijuana Comment: daily Medical History: No changes since last visit. REVIEW OF SYSTEMS: GENERAL: weight stable, no fevers. CARDIOVASCULAR: No chest pain, no edema RESPIRATORY: No dyspnea : neg BEARINGIZER: neg The remainder of the review of systems are negative. Reviewed with patient during visit today. PHYSICAL EXAMINATION: BP 104/63 Pulse 88 Resp 16 Ht 5' 3 (1.60m) Wt 208 lb 15.9 oz (94.8kg) SpO2 98% BMI 37.03 kg/(m^2). GENERAL APPEARANCE: Well developed and well nourished. SKIN: Skin color, texture, turgor normal. No rashes or lesions. EYES: Conjunctiva normal without icterus. OROPHARYNX: lips, mucosa, and tongue normal, teeth and gums normal NECK: Supple, full range of motion, no lymphadenopathy, normal thyroid, no carotid bruits and no JVD LUNGS: Normal breath sounds, Clear to auscultation, No wheezes, No crackles. HEART:Normal PMI, Regular rate and rhythm, Normal heart sounds, S1 and S2 and No murmurs. NEURO: Alert and oriented in no acute distress. ABDOMEN: Normal bowel sounds, abdomen flat with no distention, Soft, non-tender, no hepatomegaly. no palpable masses, no abdominal bruits, no rebound and no rigidity. EXTREMITIES:Extremities normal, No deformities, No skin discoloration, No edema . Assessment Encounter Diagnosis ICD-10-CM 1. Chronic idiopathic constipation K59.04 XR ABDOMEN 1V SUPINE 2. Nausea R11.0 ondansetron (ZOFRAN) 8 mg tablet 3. Gastroparesis K31.84 metoclopramide HCl (GIMOTI) 15 mg/spray nasal spray Sarai Moss DO 11/29/2022 documented in this encounter [facility] 11-14-2022 Miscellaneous Notes WALKER 01/05/22 documented in this encounter [facility] 10-05-2022 Miscellaneous Notes WALKER = 01/05/22 No upcoming appt scheduled. Message sent via [employer] that she will need a follow up appt with Dr. Moss in order to get a refill for her IBSRELA. Called patient and left voicemail to call office to let us know if she is still taking the Ibsrela and what pharmacy to sent the refills to? documented in this encounter [facility] 02-22-2022 Hospital Discharge instructions Patient Education 02/22/2022 13:50:08 Sling Sling A sling is designed to support your arm in a position of rest. It is used for injuries of the hand, forearm, upper arm, and shoulder. A shoulder that is immobilized too long can become stiff and lose range of motion. Your elbow can also get stiff. Follow up with your healthcare provider as advised and don't use the sling longer than directed. Home use: Leave the sling in place as long as directed by your healthcare provider. Unless told otherwise, you may remove it when bathing, dressing, and when you go to sleep. If approved by your healthcare provider, you can do gentle pendulum exercises. To do these: Veronikamoheydi your sling. oStand or sit with your arm vertical and close to your side. oRelax your shoulder muscles and gently swing the arm forward and back, side to side, and in small circles. oDo this for about 5 minutes once or twice a day. There should be only minimal pain with this exercise. If you have more than minimal discomfort, stop the exercise and call your healthcare provider. The sling is adjustable. If it becomes loose, adjust it so that your forearm is horizontal (level with the ground). Your hand should be level with the elbow. [id number] [employer] [place], [place] [id number]. All rights reserved. This information is not intended as a substitute for professional medical care. Always follow your healthcare professional's instructions. 02/22/2022 13:37:31 Fracture, Shoulder Shoulder Fracture You have a break (fracture) of the shoulder. This may be a small crack in the bone. Or it may be a major break with the broken parts pushed out of position. If you have only a crack in the bone and no bone fragments are out of place, you will probably be treated with a shoulder immobilizer. This is a special type of sling. Casts are usually not used for this type of fracture. Your bone should heal in 4 to 8 weeks. More serious injuries may need surgery to put the bones back into the correct position for healing. Home care Follow these tips to care for yourself at home: Leave the shoulder immobilizer in place. This will support the injured arm at your side. This is the best position for the bone to heal. The shoulder immobilizer is adjustable. If it becomes loose, adjust it so that your forearm is level with the ground (horizontal). Your hand should be level with your elbow. Apply an ice pack to the injured area for 20 minutes every 1 to 2 hours the first day. You can make an ice pack by putting ice cubes in a plastic bag. A bag of frozen peas or something similar works well too. Wrap the bag in a towel before putting it on your shoulder. Continue with ice packs 3 to 4 times a day for the next 2 to 3 days. Then use the ice as needed to relieve pain and swelling. You may take acetaminophen or ibuprofen to relieve pain, unless another pain medicine was prescribed. If you have chronic liver or kidney disease or ever had a stomach ulcer or gastrointestinal bleeding, talk with your doctor before using these medicines. Don t take the sling off before your next exam unless you were told to do so. Ask if you should move your elbow, wrist, and hand. Follow-up care Follow up with your healthcare provider, or as advised. A shoulder joint will become stiff if left in a sling for too long. Ask your doctor when it is safe to begin [id number] exercises. When to seek medical advice Call your healthcare provider right away if any of these occur: Your fingers become swollen, cold, blue, numb, or tingly Your shoulder or upper arm swells a lot or looks very bruised The pain in your shoulder gets worse The splint or immobilizer breaks You have a fever or chills [id number] [employer]. [address] [place] [address]. All rights reserved. This information is not intended as a substitute for professional medical care. Always follow your healthcare professional's instructions. Follow Up Care 02/22/2022 12:54:29 With:DO SARAI ZAMAN DO Address: [address] [place] [address] [address] [place] [address] When:2-4 days [facility] 01-26-2022 Miscellaneous Notes KASIA initiated CMM for IBSRELA KEVIN Vang documented in this encounter [facility] 01-05-2022 Nurse Note Patient states she is better than she first saw our team for her gastroparesis. She has some sporadic vomiting, constipation. She has gained weight. She has some discomfort in her lower abdomen with cramping. What is the reason for your visit today? gastroparesis Who is your referring physician? Dr Garland Are you having poor oral intake? NO Have you had unintentional weight loss of 15 lbs/7 Kg in the last 3-6 months? NO Bowels: constipated Wound: n/a Temperature: No Drains: No documented in this encounter [facility] 01-05-2022 History of Present illness Narrative Assessment and Plan: This is a 51 year old female with a known history of global dysmotility, s/p POP Medications per Moss Stop THC to see if this helps CC: Global Dysmotility HPI: 51 year old female with pmh of Houston's esophagus, depression, Diabetes Type II, fibromyalgia, GERD, [place] 10/2019 (PCI LUDY Resolute Hollins stents - Mid LAD - On ASA and Brilinta), IBS, C section, cardiac stents, cholecystectomy and hysterectomy, IBS-C, possible THC hyperemesis syndrome 03/23/2020 Diet: Tries to eat what the professor/nurse anesthetist says, dinner, tuna cassarole, mashed potatoes, meat loaf, M&C Weight: Stable BM: Week vs 1.5 weeks, On Linzess, but DC and starting something new Pain: Lower at the time of BM Narcotics: No Smoking/Vaping: Yes, 1ppd THC: Smoke QID, Has run out for a few days, makes the fibromyalgia and anxiety, also takes ativan as needed., Longest without is 1.5 weeks. Previous Gastroparesis Procedures: 01/12/21 - POP (Per-Oral Pyloromyotomy) Gastroparesis cardinal symptom index 1. nausea 3 2. retching 3 3. vomiting 3 4. stomach fullness 4 5. not able to finish a normal-sized meal 4 6. feeling excessively full after meals 4 7. loss of appetite 2 8. bloating (feeling like you need to loosen your clothes) 5 9. stomach or belly visibly larger 4 GCSI - 3.67 Scale (0-none; 1-very mild; 2-mild; 3-moderate; 4-severe; 5-very severe) Recent Gastric Emptying Study Results (04/26/21) 1 Hour = 76% Retained 2 Hour = 81% Retained Emesis Gastric Emptying Study Results (04/21/20) 1 Hour = 75% Retained 2 Hour = 56% Retained 4 Hour = 27% Retained SMART Pill (12/03/20) GET: 41:35 ? 4 h suggests delayed gastric emptying. SBTT: 7:03 Normal: 2.5 - 6 h CTT: 88:00 > 59 h indicates delayed colonic transit. SLBTT: 95:04 > 64 h indicates delayed combined bowel transit. WGTT: 136:40 Normal: < 73 h REVIEW OF SYSTEMS: PAST MEDICAL HISTORY Diagnosis Date Houston's esophagus Depression Diabetes (HCC) Diverticulosis Fibromyalgia Gastroparesis GERD (gastroesophageal reflux disease) Heart attack (HCC) Hyperlipidemia Hypertension Hypertension IBS (irritable bowel syndrome) Sleep apnea Swelling Current Outpatient Medications on File Prior to Visit Medication Sig LINZESS 145 mcg capsule TAKE 1 CAPSULE BY MOUTH DAILY (6 AM). ondansetron (ZOFRAN) 4 mg tablet TAKE 1 TABLET BY MOUTH 4 TIMES A DAY pantoprazole DR (PROTONIX) 40 mg tablet Take 1 tablet by mouth once daily. gabapentin (NEURONTIN) 300 mg capsule Take 300 mg by mouth three times daily. multivit,thx,calcium,iron,mins (MULTIVITAMIN AND MINERAL ORAL) Take 1 tablet by mouth once daily. ondansetron HCl (ZOFRAN ORAL) Take by mouth. pantoprazole DR (PROTONIX) 40 mg tablet Take 1 tablet by mouth twice daily. aspirin 81 mg chewable tablet Take 81 mg by mouth once daily. escitalopram oxalate (LEXAPRO) 20 mg tablet Take 20 mg by mouth once daily. lisinopril (ZESTRIL, PRINIVIL) 5 mg tablet Take 2.5 mg by mouth once daily. metoprolol succinate ER (TOPROL XL) 25 mg 24 hr tablet Take 25 mg by mouth once daily. nitroglycerin sublingual (NITROQUICK) 0.4 mg SL tablet Take by mouth as needed. rosuvastatin (CRESTOR) 40 mg tablet Take 40 mg by mouth once daily. RYBELSUS 7 mg tab Take 1 tablet by mouth once daily. BRILINTA 90 mg tablet Take 90 mg by mouth twice daily. No current facility-administered medications on file prior to visit. ALLERGIES Allergen Reactions Magnesium Salicylate Swelling Other Bartlett-3s Hives, Rash, Swelling Sunil's back pills PAST SURGICAL HISTORY Procedure Laterality Date BUNIONECTOMY, LAPIDUS-TYPE Left CARPAL TUNNEL Both Rt and Lt SECTION HX CHOLECYSTECTOMY HX COLONOSCOPY 09/18/2012 moderate diverticulosis sigmoid colon, hyperplastic polyps EGD 10/28/2013 Gaping LES, chronic gastritis EGD 12/05/2017 Acute chronic gastritis, Grade A reflux esophagitis, bile gastric fluid, neg H Pylori HYSTERECTOMY HX PAST SURGICAL HISTORY OF 10/2019 Heart stents placed. PAST SURGICAL HISTORY OF rectal abscess REPAIR UMBILICAL HERNIA FAMILY HISTORY Problem Relation Age of Onset Heart disease Mother Diabetes Mother Hypertension Mother Hyperlipidemia Mother Diabetes Father Hypertension Father Hyperlipidemia Father other (heart problems) Father other (Lung cancer) Father Social History Tobacco Use Smoking status: Current Every Day Smoker Packs/day: 0.75 Types: Cigarettes Smokeless tobacco: Never Used Vaping Use Vaping Use: current everyday user Substance Use Topics Alcohol use: Yes Comment: occasional Drug use: Yes Types: Marijuana Comment: daily REVIEW OF SYSTEMS: General: No weight loss, malaise or fevers. GI: See HPI OBJECTIVE: BP 95/59 (BP Site: Right Arm, BP Position: Sitting, BP Cuff Size: Regular Adult) Pulse 91 Ht 160 cm (5' 3 ) Wt 76.6 kg (168 lb 14.4 oz) BMI 29.92 kg/m Gen - NAD Cervical - Normal ROM HEENT - Anicteric sclera, MMM CV - RRR Pulm - CTAB Abd - Soft, ND, NT Ext - No LE Edema Labs: No new labs Images: See above Wood Howard MD documented [facility] [facility] Miscellaneous Notes [facility] 05-17-21 Pharmacy and Rx request verified. Please file if appropriate. Thank you Alexandria Stephen LPN documented in this encounter [facility] documented as of this encounter (statuses as of 12/06/2021) [facility] History of Past illness Narrative* Problem Noted Date Resolved Date Morbidly obese 11/18/2015 01/01/2021 Labial abscess 11/18/2015 01/01/2021 S/P hysterectomy with oophorectomy 03/10/2015 01/01/2021 documented as of this encounter (statuses as of 01/05/2022) [facility] History of Past illness Narrative* Problem Noted Date Resolved Date Morbidly obese 11/18/2015 01/01/2021 Labial abscess 11/18/2015 01/01/2021 S/P hysterectomy with oophorectomy 03/10/2015 01/01/2021 documented as of this encounter (statuses as of 01/26/2022) [facility] History of Past illness Narrative* Problem Noted Date Resolved Date Morbidly obese 11/18/2015 01/01/2021 Labial abscess 11/18/2015 01/01/2021 S/P hysterectomy with oophorectomy 03/10/2015 01/01/2021 documented as of this encounter (statuses as of 10/05/2022) [facility] History of Past illness Narrative* Problem Noted Date Resolved Date Morbidly obese 11/18/2015 01/01/2021 Labial abscess 11/18/2015 01/01/2021 S/P hysterectomy with oophorectomy 03/10/2015 01/01/2021 documented as of this encounter (statuses as of 11/14/2022) [facility] History of Past illness Narrative* Problem Noted Date Resolved Date Morbidly obese 11/18/2015 01/01/2021 Labial abscess 11/18/2015 01/01/2021 S/P hysterectomy with oophorectomy 03/10/2015 01/01/2021 documented as of this encounter (statuses as of 11/29/2022) [facility] History of Past illness Narrative* Problem Noted Date Resolved Date Morbidly obese 11/18/2015 01/01/2021 Labial abscess 11/18/2015 01/01/2021 S/P hysterectomy with oophorectomy 03/10/2015 01/01/2021 documented as of this encounter (statuses as of 11/30/2022) [facility] History of Past illness Narrative* Problem Noted Date Resolved Date Morbidly obese 11/18/2015 01/01/2021 Labial abscess 11/18/2015 01/01/2021 S/P hysterectomy with oophorectomy 03/10/2015 01/01/2021 documented as of this encounter (statuses as of 12/23/2022) [facility] History of Past illness Narrative* Problem Noted Date Resolved Date Morbidly obese 11/18/2015 01/01/2021 Labial abscess 11/18/2015 01/01/2021 S/P hysterectomy with oophorectomy 03/10/2015 01/01/2021 documented as of this encounter (statuses as of 12/29/2022) [facility] History of Past illness Narrative* Problem Noted Date Resolved Date Morbidly obese 11/18/2015 01/01/2021 Labial abscess 11/18/2015 01/01/2021 S/P hysterectomy with oophorectomy 03/10/2015 01/01/2021 documented as of this encounter (statuses as of 12/30/2022) [facility] History of Past illness Narrative* Problem Noted Date Resolved Date Morbidly obese 11/18/2015 01/01/2021 Labial abscess 11/18/2015 01/01/2021 S/P hysterectomy with oophorectomy 03/10/2015 01/01/2021 documented as of this encounter (statuses as of 02/28/2023) [facility] History of Past illness Narrative* Problem Noted Date Resolved Date Morbidly obese 11/18/2015 01/01/2021 Labial abscess 11/18/2015 01/01/2021 S/P hysterectomy with oophorectomy 03/10/2015 01/01/2021 documented as of this encounter (statuses as of 03/03/2023) [facility] History of Past illness Narrative* Problem Noted Date Diagnosed Date Resolved Date Morbidly obese 11/18/2015 01/01/2021 Labial abscess 11/18/2015 01/01/2021 S/P hysterectomy with oophorectomy 03/10/2015 01/01/2021 documented as of this encounter (statuses as of 07/04/2023) [facility] History of Past illness Narrative* Problem Noted Date Diagnosed Date Resolved Date Morbidly obese 11/18/2015 01/01/2021 Labial abscess 11/18/2015 01/01/2021 S/P hysterectomy with oophorectomy 03/10/2015 01/01/2021 documented as of this encounter (statuses as of 07/14/2023) [facility] + Plan note No data available for this section [facility] Evaluation note* Diagnosis Chronic idiopathic constipation Unspecified constipation documented in this encounter [facility] note* Diagnosis Gastrointestinal dysmotility- Primary Unspecified functional disorder of stomach documented in this encounter [facility] note* Diagnosis Irritable bowel syndrome with constipation Irritable bowel syndrome documented in this encounter [facility] note* Diagnosis Irritable bowel syndrome with constipation Irritable bowel syndrome documented in this encounter [facility] note* Diagnosis Chronic idiopathic constipation- Primary Unspecified constipation Nausea Nausea alone Gastroparesis documented in this encounter [facility] note* Diagnosis Chronic idiopathic constipation Unspecified constipation documented in this encounter [facility] note* Diagnosis Screening for malignant neoplasm of colon- Primary documented in this encounter [facility] note* Diagnosis Gastroparesis documented in this encounter [facility] note* Diagnosis Irritable bowel syndrome with constipation Irritable bowel syndrome [facility] available [facility] this section [facility] Reason for referral (narrative)* Diagnostic Procedure Only (Routine) - Closed Specialty Diagnoses / Procedures Referred By Contac t Referred To Contact XR IMAGING Diagnoses Chronic idiopathic constipation Procedures XR ABDOMEN 1V SUPINE RADIOLOGIC EXAM ABDOMEN 1 VIEW Sarai Moss DO [facility] [address] [place] [address] Xr Imaging Referral ID Status Reason Start Date Expiration Date V isits Requested Visits Authorized [id number] Closed Auto-Generate d Referral 11/29/2022 12/29/2023 1 1 [facility] for referral (narrative)* Diagnostic Procedure Only (Routine) - Closed Specialty Diagnoses / Procedures Referred By Contac t Referred To Contact XR IMAGING Diagnoses Chronic idiopathic constipation Procedures XR ABDOMEN 1V SUPINE RADIOLOGIC EXAM ABDOMEN [address] Sarai Moss DO [address] [place] [address] Xr Imaging Referral ID Status Reason Start Date Expiration Date V isits Requested Visits Authorized [id number] Closed Auto-Generate d Referral 11/29/2022 12/29/2023 1 1 [facility] for referral (narrative)* Outpatient Procedure (Routine) - Authorized Specialty Diagnoses / Procedures Referred By Angela moseley Referred To Contact [facility] Diagnoses Screening for malignant neoplasm of colon Procedures COLONOSCOPY SCREENING COLONOSCOPY FLX DX W/COLLJ SPEC WHEN PFRMD Sar[facility] [address] [place] [id number] [facility] [place] [address] [place] [address] Referral ID Status Reason Start Date Expiration Date Visits Requested Visits Authorized [id number] Authorized Auto-Generat ed Referral 12/30/2022 12/31/2023 1 1 [facility] for visit Narrative* Diagnostic Procedure Only (Routine) - Closed Specialty Diagnoses / Procedures Referred By Angela moseley Referred To Contact XR IMAGING Diagnoses Chronic idiopathic constipation Procedures XR ABDOMEN 1V SUPINE RADIOLOGIC EXAM ABDOMEN 1 VIEW Sarai Moss DO [address] [place] [phone] Xr Imaging Referral ID Status Reason Start Date Expiration Date V isits Requested Visits Authorized [id number] Closed Auto-Generate d Referral 11/29/2022 12/29/2023 1 1 [facility] Summary Purpose Family History No Family History Records FoundNo Family History Records FoundNo Family History Records FoundNo Family History Records FoundNo Family History Records FoundNo Family History Records FoundNo Family History Records FoundNo Family History Records Found Advance Directives Documents on File Type Date Recorded Patient Certified Alcohol And Drug Counselor Expl anation ACP-Advance Directive ACP-Power of Boom Stick Man Documents on File Type Date Recorded Patient Certified Alcohol And Drug Counselor Expl anation Advance Directive(s) 12/25/2020 4:53 PM Advance Directive(s) 12/05/2017 10:59 AM Discharge Instructions * Attachments The following attachments cannot be sent through Care Everywhere. * Hypokalemia (Korean) documented in this encounter Assessments Diagnosis Non-intractable vomiting with nausea, unspecified vomiting type- Primary Hypokalemia Hypopotassemia Additional Source Comments INFORMATION SOURCE (unrecogn ized section and content) DATE CREATED AUTHOR AUTHOR'S ORGANIZ ATION 09/23/2020 [employer] DATE CREATED AUTHOR AUTHOR'S ORGANIZ ATION 01/22/2022 [facility] DATE CREATED AUTHOR AUTHOR'S ORGANIZ ATION 03/11/2022 [facility] ([place]) DATE CREATED AUTHOR AUTHOR'S ORGANIZ ATION 02/10/2023 [facility] DATE CREATED AUTHOR AUTHOR'S ORGANIZ ATION 03/03/2023 [facility] DATE CREATED AUTHOR AUTHOR'S ORGANIZ ATION 05/08/2023 [facility] DATE CREATED AUTHOR AUTHOR'S ORGANIZ ATION 07/05/2023 [facility] Reason for Visit (unrecogniz ed section and content) Reason Comments Refill Request Reason Comments Gastroparesis Reason Comments Patient Update PA IBSRELA Reason Comments Refill Request Ibsrela Reason Comments Follow Up Gastroparesis Reason Comments Medication Preauthorization PA for Gimot i Reason Comments Request Outside Medical Records Ordered Prescriptions (unrec ognized section and content) Care Teams (unrecognized sec tion and content) Development Consultant Relationship Specialty Start Date End Date Jane Mcallister, DO [address] [place] [address] PCP - General Internal Medicine 03/23/20 Development Consultant Relationship Specialty Start Date End Date Jane Mcallister DO [address] [place] [address] PCP - General Internal Medicine 03/23/20 Development Consultant Relationship Specialty Start Date End Date Jane Mcallister DO [address] [place] [address] PCP - General Internal Medicine 03/23/20 Development Consultant Relationship Specialty Start Date End Date Jane Mcallister, DO [address] [place] [address] PCP - General Internal Medicine 03/23/20 Development Consultant Relationship Specialty Start Date End Date Jane Mcallister, DO [address] [place] [address] PCP - General Internal Medicine 03/23/20 Development Consultant Relationship Specialty Start Date End Date Jane Mcallister, DO [address] [place] [address] PCP - General Internal Medicine 03/23/20 Development Consultant Relationship Specialty Start Date End Date Jane Mcallister, DO [address] [place] [address] PCP - General Internal Medicine 03/23/20 Development Consultant Relationship Specialty Start Date End Date WendiJane mera, DO [address] [place] [address] PCP - General Internal Medicine 03/23/20 Development Consultant Relationship Specialty Start Date End Date WendiJane mera, DO [address] [place] [address] PCP - General Internal Medicine 03/23/20 Development Consultant Relationship Specialty Start Date End Date Jane Mcallister MD [address] [place] [address] PCP - General Internal Medicine 03/23/20 Development Consultant Relationship Specialty Start Date End Date Jane Mcallister MD [address] [place] [address] PCP - General Internal Medicine 03/23/20 Source Comments (unrecognize d section and content) In the event this informatio n is protected by the Federal Confidentiality of Alcohol and Drug Abuse Patient Records regulations: The Federal rules restrict any use of the information to criminally investigate or prosecute any alcohol or drug abuse patient.[facility] the event this information is protected by the Federal Confidentiality of Alcohol and Drug Abuse Patient Records regulations: The Federal rules restrict any use of the information to criminally investigate or prosecute any alcohol or drug abuse patient.[facility] event this information is protected by the Federal Confidentiality of Alcohol and Drug Abuse Patient Records regulations: The Federal rules restrict any use of the information to criminally investigate or prosecute any alcohol or drug abuse patient.[facility] event this information is protected by the Federal Confidentiality of Alcohol and Drug Abuse Patient Records regulations: The Federal rules restrict any use of the information to criminally investigate or prosecute any alcohol or drug abuse patient.[facility] event this information is protected by the Federal Confidentiality of Alcohol and Drug Abuse Patient Records regulations: The Federal rules restrict any use of the information to criminally investigate or prosecute any alcohol or drug abuse patient.[facility] event this information is protected by the Federal Confidentiality of Alcohol and Drug Abuse Patient Records regulations: The Federal rules restrict any use of the information to criminally investigate or prosecute any alcohol or drug abuse patient.[facility] event this information is protected by the Federal Confidentiality of Alcohol and Drug Abuse Patient Records regulations: The Federal rules restrict any use of the information to criminally investigate or prosecute any alcohol or drug abuse patient.[facility] event this information is protected by the Federal Confidentiality of Alcohol and Drug Abuse Patient Records regulations: The Federal rules restrict any use of the information to criminally investigate or prosecute any alcohol or drug abuse patient.[facility] event this information is protected by the Federal Confidentiality of Alcohol and Drug Abuse Patient Records regulations: The Federal rules restrict any use of the information to criminally investigate or prosecute any alcohol or drug abuse patient.[facility] event this information is protected by the Federal Confidentiality of Alcohol and Drug Abuse Patient Records regulations: The Federal rules restrict any use of the information to criminally investigate or prosecute any alcohol or drug abuse patient.[facility] event this information is protected by the Federal Confidentiality of Alcohol and Drug Abuse Patient Records regulations: The Federal rules restrict any use of the information to criminally investigate or prosecute any alcohol or drug abuse patient.[facility] event this information is protected by the Federal Confidentiality of Alcohol and Drug Abuse Patient Records regulations: The Federal rules restrict any use of the information to criminally investigate or prosecute any alcohol or drug abuse patient.[facility] event this information is protected by the Federal Confidentiality of Alcohol and Drug Abuse Patient Records regulations: The Federal rules restrict any use of the information to criminally investigate or prosecute any alcohol or drug abuse patient.[facility] the event this information is protected by the Federal Confidentiality of Alcohol and Drug Abuse Patient Records regulations: The Federal rules restrict any use of the information to criminally investigate or prosecute any alcohol or drug abuse patient.[facility] Care Team (unrecognized sect ion and content) Personnel Name: JANE MCALLISTER DO Address: Address: [address] [place] [address]- US FOR RECORDS PERTAINING TO PATIENTS WHO ARE OR HAVE BEEN ENROLLED IN A CHEMICAL DEPENDENCY/SUBSTANCEABUSE PROGRAM, SOME INFORMATION MAY BE OMITTED. This clinical summary was aggregated from multiple sources. Caution should be exercised in using it in the provision of clinical care. This summary normalizes information from multiple sources, and as a consequence, information in this document may materially change the coding, format and clinical context of patient data. In addition, data may be omitted in some cases. CLINICAL DECISIONS SHOULD BE BASED ON THE PRIMARY CLINICAL RECORDS. [facility]. provides no warranty or guarantee of the accuracy or completeness of information in this document.
--- NOTE | 2023-09-06 05:43 | PFTCOMP ---
COMPLETE PULMONARY FUNCTION TEST INTERPRETATION Brief HPI: Patient is a 53-year-old female, currently under the care of Silvana Tipton, who presents to [facility] for complete pulmonary function tests secondary to diagnosis of dyspnea. Respiratory therapist reports good effort and reproducible results. Interpretation: Forced expiration spirometry shows no large airways obstructive ventilatory defect with an FEV1 of 74% predicted. There is no significant bronchodilator response by strict ATS criteria. Spirograms are of good quality and plateau slowly, indicating slowly emptying areas of the lungs. The respiratory flow volume loop shows decreased expiratory flow rates at high lung volumes consistent with small airways obstruction. Lung volumes by body plethysmography show a normal total lung capacity at 4.48 L, 94% predicted. All other lung volumes are within normal limits. Diffusion capacity by carbon monoxide is decreased at 71% predicted. The airway resistance is elevated. No previous pulmonary function tests were available for review. Impression: Isolated reduction diffusion capacity with some stigmata of concomitant small airways disease
== END | disposition home or self-care (01) ==
LOC: PSN 08:34
PROVIDERS: PCP Family Medicine; Referring Provider Nurse Practitioner Acute Care; Visit Provider Nurse Practitioner Acute Care
DX: R06.09 Other forms of dyspnea (principal)
CPT/HCPCS: 94060; 94726; 94729

== ENCOUNTER → 2023-09-12 | Outpatient (CLI) | payer OTHER, SELFPAY ==
[2023-09-12 13:00] VITALS: PULSE 101; PULSE 106; PULSE 110; PULSE 113; PULSE 117; PULSE 122; PULSE 94; O2SAT 91; O2SAT 92; O2SAT 95
--- OUTSIDE RECORDS SUMMARY | 2023-09-12 14:23 | XMS RPT_ITS | CCD ---
Author Name Unknown Address [address] [place] [address] Organization [facility] Care Team Providers Care Agent Based Modeler Name Role Phone Brendan Spivey Primary Care Provider [phone] Jane Mcallister DO Primary Care Provider Brendan Spivey MD Primary Care Provider DR JANE MCALLISTER DO Primary Care Physician Jane Mcallister DO Primary Care Provider SARAI MOSS Attending Unavailable MOSS, SARAI Wiley Referring Unavailable ESTERJANE MERA Primary Care Unavailable MOSS, SARAI Wiley Referring Unavailable ESTERJANE MERA Primary Care Unavailable ESTERJANE MERA Referring Unavailable ESTERLE, JANE Shafer Primary Care Unavailable CUTOVER, PROVIDER Referring Unavailable MELBA, DATINDER Attending Unavailable ESTEREDE, JANE Primary Care Unavailable CRESAP JUNIOR Attending Unavailable MELBA, EMILYINDER Attending Unavailable MELBA, MEILYINDER Referring Unavailable ESTEREDE, JANE Primary Care Unavailable Jane Mcallister MD Primary Care Provider JANE MCALLISTER Primary Care Unavailable MOSS, SARAI Wiley Attending Unavailable Allergies Allergy Classification Reported Allergen(s) Allergy Type Date of Onset Reaction(s) Facility (20 sources) Magnesium Salicylate; Translations: [magnesium salicylate] Drug Allergy 02-05-20 15 Hives, Swelling, Rash [facility] (2 sources) Other Propensity to adverse reactions 02-05-20 15 Hives, Swelling, Rash [facility] (17 sources) Other [place]-3s; Translations: [OTHER OMEGA-3S] Propensity to adverse reactions to drug 02-05-20 15 Hives, Rash, Swelling [facility] (1 source) [place]-3 Acid Ethyl Esters (CORRECTION); Translations: [omega-3 polyunsaturated fatty acids] Drug Allergy Weal (disorder) [facility] Work Phone: NEGATED: Highlighted row has been ruled out! (2 sources) Other Propensity to adverse reactions 02-05-20 15 H[facility], Swelling, [facility]: Medications Current Medications Medication [...] qDay, # 90 tab(s), 4 Refill(s), Pharmacy: [facility]/pharmacy #[id number], 160, cm, 11/17/20 11:06:00 EDT, Height, [...] Coronary arteriosclerosis; Translations: [Atherosclerotic heart disease of [place] coronary artery without angina pectoris] Onset: 1 [...] 13:19040 Body height 160 cm Sarai Moss Epyon Work Phone: [facility] 11-29-2022 13:040 Body weight 94.8 kg Sarai Moss DO Work Phone: [facility] 11-29-2022 13:19040 Diastolic blood pressure 63 mm[Hg] Sarai Paze DO Work Phone: [facility] 11-29-2022 13:19-0400 Heart rate 88 /min Sarai Moss DO Work Phone: [facility] 11-29-2022 13:19-0400 Respiratory rate 16 /min Sarai Moss DO Work Phone: [facility] 11-29-2022 13:19-0400 SaO2% (BldA) [Mass fraction] 98 % Sarai Moss DO Work Phone: [facility] 11-29-2022 13:19-0400 Systolic blood pressure 104 mm[Hg] Sarai Moss DO Work Phone: [facility] 02-22-2022 13:02-0400 Body height [address] RADHA SEGURA MD [facility] 02-22-2022 13:02-0400 Body temperature 98.06 [degF] DR RADHA SEGURA MD [facility] 02-22-2022 13:02-0400 Body weight [address] RADHA SEGURA MD [facility] 02-22-2022 13:02-0400 Diastolic blood pressure 79 mm[Hg] DR RADHA SEGURA MD [facility] 02-22-2022 13:02-0400 Heart rate 85 /min DR RADHA SEGURA MD [facility] 02-22-2022 13:02-0400 Respiratory rate 16 /min DR RADHA SEGURA MD [facility] 02-22-2022 13:02-0400 Systolic blood pressure 123 mm[Hg] DR RADHA SEGURA MD [facility] 01-05-2022 14:07-0400 Body height 160 cm Wood Howard MD Work Phone: [facility] 01-05-2022 14:07-0400 Body weight 76.61 kg Wood Howard MD Work Phone: [facility] 01-05-2022 14:07-0400 Diastolic blood pressure 59 mm[Hg] Wood Howard MD Work Phone: [facility] 01-05-2022 14:07-0400 Heart rate 91 /min Wood Howard MD Work Phone: [facility] 01-05-2022 14:07-0400 Systolic blood pressure 95 mm[Hg] Wood Howard MD Work Phone: [facility] 10-05-2020 19:00-0500 BP Diastolic 62 mm[Hg] [place], [place] 10-05-2020 19:00-0500 BP Systolic 97 mm[Hg] [place], [place] 10-05-2020 19:00-0500 Pulse (Heart Rate) 88 /min [place], [place] 10-05-2020 19:00-0500 Pulse Oximetry 98 % [place], [place] 10-05-2020 19:00-0500 Respiratory Rate 16 /min [place] 10-05-2020 16:03-0500 BMI (Body Mass Index) 28.32 kg/m2 [place] 10-05-2020 16:03-0500 Body Temperature 97.7 [degF] [place], [place] 10-05-2020 16:03-0500 Body weight 74.84 kg [place] Encounters Encounter Date Encounter Type Care [...] MD Start: 10-05-2020 [facility] Work Phone: Start: 10-05-2020 Radex abd compl aqt abd w/s/e/d views 1 view ch Thomas Blanc Work Phone: Start: 10-05-2020 Assay of lipase [facility] Work Phone: Start: 10-05-2020 Assay of troponin quantitative [facility] Work Phone: Start: 10-05-2020 Blood count complete auto&auto difrntl wbc Thomas [facility]anc Work Phone: Start: 10-05-2020 Comprehensive metabolic panel [facility] Work Phone: Start: 10-05-2020 Ecg routine ecg w/least 12 lds w/i&r Thomas Blanc Work Phone: Start: 10-05-2020 Gluc bld gluc mntr dev cleared fda spec home use Thomas Andersona Work Phone: Start: 09-22-2020 Follow-up visit Start: 09-04-[address] RADHA SEUGRA MD Start: 04-09-[address] [...] Care Activity Detail Author Start: 03-02-2024 Mammography [facility] Start: 01-28-2024 Colonoscopy COLONOSCOPY [facility] Start: 01-28-2024 COLORECTAL CANCER SCREENING COLORECTAL CANCER SCREENING [facility] Start: 11-30-2023 BP CONTROLLED (<130/80) BP CONTROLLED (<130/80) [facility] Start: 11-25-2023 Screening for malignant neoplasm of breast Breast cancer screen [facility] Start: 05-05-2023 Covid-19 Vaccine () Covid-19 Vaccine () [facility] Start: 05-05-2023 Influenza vaccination [facility] Start: 01-05-2023 BP CONTROLLED (<130/80) BP CONTROLLED (<130/80) [facility] Start: 05-05-2022 Influenza vaccination [facility] Start: 01-01-2022 BP CONTROLLED (<130/80) BP CONTROLLED (<130/80) [facility] Start: 10-21-2021 Hemoglobin A1c measurement A1C test (Diabetic or Prediabetic) [facility] Start: 10-05-2021 Creatinine measurement Creatinine monitoring [facility] Start: 10-05-2021 Potassium monitoring Potassium monitoring [facility] Start: 06-22-2021 COVID-19 VACCINE (3 - Booster for Moderna series) COVID-19 VACCINE (3 - Booster for Moderna series) [facility] Start: 2021 Screening for malignant neoplasm of breast Breast cancer screen [facility] Start: 2021 Shingles Vaccine (1 of 2) Shingles Vaccine (1 of 2) [facility] Start: 2021 SHINGRIX VACCINE (1 of 2) SHINGRIX VACCINE (1 of 2) [facility] Start: 05-05-2021 Influenza vaccination Flu vaccine (#1) [facility] Start: 04-20-2021 Hemoglobin A1c/Hemoglobin.total in Blood HBA1C [facility] Start: 03-17-2021 COVID-19 VACCINE (3 - Booster for Moderna series) COVID-19 VACCINE (3 - Booster for Moderna series) [facility] Start: 05-05-2020 Influenza vaccination Flu vaccine (#1) [place], [place] Start: 2016 COLOGUARD (FIT-DNA) COLOGUARD (FIT-DNA) [facility] Start: 2016 Colonoscopy COLONOSCOPY [facility] Start: 2016 COLORECTAL CANCER SCREENING COLORECTAL CANCER SCREENING [facility] Start: [address] COLONOGRAPHY [facility] Start: 2016 FECAL OCCULT BLOOD FECAL OCCULT BLOOD [facility] Start: 2016 Screening for malignant neoplasm of colon [facility] Start: 2016 SIGMOIDOSCOPY SIGMOIDOSCOPY [facility] Start: 2011 Lipid panel Lipid screen [place], [place] Start: 2011 Mammography MAMMOGRAM [facility] Start: 03-04-2009 DTaP/Tdap/Td vaccine (1 - Tdap) DTaP/Tdap/Td vaccine (1 - Tdap) [facility] Start: 03-04-2009 Urine microalbumin profile [facility] Start: 2001 HPV TESTING HPV TESTING [facility] Start: 1992 PAP TESTING PAP TESTING [facility] Start: 1990 DTaP/Tdap/Td vaccine (1 - Tdap) DTaP/Tdap/Td vaccine (1 - Tdap) [place], [place] Start: 1990 HEPATITIS B (1 of 3 - Risk 3-dose series) HEPATITIS B (1 of 3 - Risk 3-dose series) [facility] Start: 1990 Hepatitis B vaccine (1 of 3 - Risk 3-dose series) Hepatitis B vaccine (1 of 3 - Risk 3-dose series) [facility] Start: 1989 ANNUAL PCP TEAM CHRONIC DISEASE VISIT ANNUAL PCP TEAM CHRONIC DISEASE VISIT [facility] Start: 1989 Diabetic microalbuminuria test Diabetic microalbuminuria test [facility] Work Phone: Start: 1989 Diabetic retinal exam Diabetic retinal exam [facility] Start: 1989 HEMOGLOBIN/HEMATOCRIT HEMOGLOBIN/HEMATOCRIT [facility] Start: 1989 Hepatitis B surface antibody level LDL CHOLESTEROL [facility] Start: 1989 HEPATITIS C SCREENING HEPATITIS C SCREENING [facility] Start: 1989 Hepatitis C screening Hepatitis C screen [facility] Start: 1989 HIV SCREENING HIV SCREENING [facility] Start: 1989 SERUM CREATININE SERUM CREATININE [facility] Start: 1989 Urine screening for protein Diabetic microalbuminuria test [facility] Start: 1987 COVID-19 Vaccine (1) COVID-19 Vaccine (1) [facility] Work Phone: Start: 1987 ONE PNEUMOVAX PRIOR TO AGE 65 ONE PNEUMOVAX PRIOR TO AGE 65 [facility] Start: 1986 HIV screening HIV screen [facility] Start: 1983 Depression Screen Depression Screen [facility] Start: 1981 3 comp foot exam completed DIABETIC FOOT EXAM [facility] Start: 1981 Diabetic foot examination Diabetic foot exam [facility] Start: 1981 Diabetic retinal exam Diabetic retinal exam [facility] Work Phone: Start: 1981 HbA1c (Bld) [Mass fraction] A1C test (Diabetic or Prediabetic) [facility] Work Phone: Start: 1981 Hepatitis B screening URINE ALBUMIN:CREATININE RATIO [facility] Start: 1981 Hepatitis C antibody, confirmatory test DILATED RETINAL EXAM [facility] Start: 1981 Lipid panel [facility] Start: 1977 PNEUMOCOCCAL (1 - PCV) PNEUMOCOCCAL (1 - PCV) [facility] Start: 1977 Pneumococcal 0-64 years Vaccine (1 [...] Pneumococcal vaccination Pneumococcal Vaccine (1 - PCV) [facility] Start: 1976 COVID-19 Vaccine (1) COVID-19 Vaccine (1) [facility] Start: 1971 HEPATITIS B (1 of 3 - 3-dose series) HEPATITIS B (1 of 3 - 3-dose series) [facility] Start: 1971 Hepatitis B Vaccine (1 of 3 - 3-dose series) Hepatitis B Vaccine (1 of 3 - 3-dose series) [facility] Start: 1971 Hepatitis C screening Hepatitis C screen [facility] EKG 12 Lead EKG 12 Lead ECG Routine 10/05/2020 4:27 PM [place], [place] End: 12-31-2023 Screening colonoscopy COLONOSCOPY SCREENING Endoscopy Routine Screening for malignant neoplasm of colon 1 Occurrences starting 12/30/2022 until 12/31/2023 [facility] Work Phone: Immunizations Immunization Date Immunization Notes Care Provider Fa zaid 06-21-2019 influenza virus vacc ine, unspecified formulation Sarai Moss DO Work Phone: [facility] 03-03-2009 tetanus and diphther ia toxoids, not adsorbed, for adult use Sarai Moss DO Work Phone: [facility] Payers Date Payer Category Payer Private Health Insurance AET[employer] A ETNA CHOICE POS II [id number] 2020-Present [phone] [address] [place] [address] POS [id number] 2020 Private Health Insurance [id number] 2016 Private Health Insurance [id number] 2015 Unknown BCBS BCBS - [place] [id number] 2015-Present [address] [place] [address] [id number] Social History Date Type Detail Facility Start: 12-30-2016 End: 11-14-2017 Tobacco smoking status NHIS Current every day smoker [facility] Start: 12-30-2016 End: 09-27-2022 Cigarettes smoked current (pack per day) - [facility] Start: 12-30-2016 End: 11-14-2017 Tobacco use and exposure [facility] used [facility] Start: 12-30-2016 End: 01-27-2023 Alcohol intake Current drinker of alcohol (finding) [facility] Start: 03-10-2015 Alcohol Comment [facility] Start: 1971 Sex Assigned At Not on file M [facility] Start: 12-26-2021 End: 01-05-2022 Exposure to SARS-CoV-2 (event) Not sure [facility] History of tobacco use Cigarette Smoker [facility] Start: 10-27-2015 History SDOH Alcohol Comment occasional [facility] Start: 1971 Sex Assigned At Female C [facility] Start: 10-21-2019 Tobacco smoking status Heavy t obacco smoker (finding) [facility] Start: 09-27-2022 End: 01-27-2023 Tobacco use panel [facility] National Score (1-10 0), lower number is lower risk 77 [facility] Start: 12-22-2020 Gender identity Identifies as female gender (finding) [facility] Start: 12-22-2020 Sexual orientation Heterosexual (adrianne salgado) [facility] Functional Status Date Assessment Result Facility 02-22-2022 Functional Status ID band on, Allergy Band on, Call device within reach, Bed in low position, Wheels locked [facility] Mental Status Date Assessment Result Facility 02-22-2022 Mental Status Oriented x 4 [facility] Clinical Notes 11-18-2015 to 07-14-2023 Telephone Encounter [...] they need to be sent to the [facility]. WALKER 11/24/[address] Moss. Please review and sign. Thanks documented in this encounter [facility] 07-04-2023 Miscellaneous Notes Trajector Disability form release of information form faxed to Medical records and scanned into [employer]. documented in this encounter [facility] 02-28-2023 Miscellaneous Notes WALKER=11/29/22 Spoke with patient she does need a refill Mediation pended please file Rx request if appropriate Patient and pharmacy verified documented in this encounter [facility] 12-30-2022 Instructions Sarai Moss DO - 12/30/2022 [...] If you do not have a responsible star route mail driver (family member or friend) with you to [...] exam. 2 08/2019 documented in this encounter [facility] 12-28-2022 Miscellaneous Notes Patient states PCP wants her to ask you if colonoscopy will be ordered since patient is over 51 years old and has never had one. Please review and advise documented in this encounter [facility] 12-22-2022 Miscellaneous Notes Received Determination of Medical Necessity paperwork from [facility] at [phone], to be completed. Called [facility] at [phone] and spoke with [employer], asking about form and she stated they tried doing a PA on CMM for the Gimoti and it can back stating it could not be done epa so this form is their way of sending information to the insurance to try and get the Gimoti approved. [employer] ID# [id number] Group# [id number] Form completed,signed and faxed with supporting onformation to [facility] at [phone] with fax verification received. documented in this encounter [facility] 11-29-2022 Note HNO ID: [id number] Author: RT Kimmy(R) Service: ? Author Type: [...] RT Kimmy(R) November 29, 2022 2:14 PM [facility] 11-29-2022 Note HNO ID: [id number] Author: Sarai Moss, DO Service: ? Author [...] ALLERGIES Allergen Reactions Magnesium Salicylate Swelling Other [place]-3s Hives, Rash, Swelling Sunil's back pills Social [...] no edema RESPIRATORY: No dyspnea : neg MANAGER MEDICAL: neg The remainder of the review of [...] mg/spray nasal spray Sarai Moss DO 11/29/2022 [facility] 11-29-2022 History of Present illness Narrative Radiology [...] 2022 2:14 PM documented in this encounter [facility] 11-29-2022 History of Present illness Narrative FOLLOW [...] ALLERGIES Allergen Reactions Magnesium Salicylate Swelling Other [place]-3s Hives, Rash, Swelling Sunil's back pills Social [...] no edema RESPIRATORY: No dyspnea : neg MANAGER MEDICAL: neg The remainder of the review of [...] Moss DO 11/29/2022 documented in this encounter [facility] 11-14-2022 Miscellaneous Notes WALKER 01/05/22 documented in this encounter [facility] 10-05-2022 Miscellaneous Notes WALKER = 01/05/22 No upcoming appt scheduled. Message sent via [employer] that she will need a follow up appt with Dr. Moss in order to get a refill for her IBSRELA. Called patient and left voicemail to call office to let us know if she is still taking the Ibsrela and what pharmacy to sent the refills to? documented in this encounter [facility] 02-22-2022 Hospital Discharge instructions Patient Education 02/22/2022 [...] hand should be level with the elbow. [id number] [employer]. [address] [place], [place] [id number]. All rights reserved. This information is not [...] doctor when it is safe to begin [id number] exercises. When to seek medical advice Call your healthcare provider right away if any of these occur: Your fingers become swollen, cold, blue, numb, or tingly Your shoulder or upper arm swells a lot or looks very bruised The pain in your shoulder gets worse The splint or immobilizer breaks You have a fever or chills [id number] [employer] [place] [address]. All rights reserved. This information is not intended as a substitute for professional medical care. Always follow your healthcare professional's instructions. Follow Up Care 02/22/2022 12:54:29 With:DO SARAI ZAMAN DO Address: [address] [place] [address] [address] [place] [address] When:2-4 days [facility] 01-26-2022 Miscellaneous Notes KASIA initiated CMM for IBSRELA KEVIN Vang documented in this encounter [facility] 01-05-2022 Nurse Note Patient states she is [...] No Drains: No documented in this encounter [facility] 01-05-2022 History of Present illness Narrative Assessment and Plan: This is a 51 year old female with a known history of global dysmotility, s/p POP Medications per Moss Stop THC to see if this helps CC: Global Dysmotility HPI: 51 year old female with pmh of [place]'s esophagus, depression, Diabetes Type II, fibromyalgia, GERD, [place] 10/2019 (PCI LUDY Resolute [place] stents - Mid LAD - On ASA and Brilinta), IBS, C section, cardiac stents, cholecystectomy and hysterectomy, IBS-C, possible THC hyperemesis syndrome 03/23/2020 Diet: Tries to eat what the die lay out worker says, dinner, tuna cassarole, mashed potatoes, meat [...] ALLERGIES Allergen Reactions Magnesium Salicylate Swelling Other [place]-3s Hives, Rash, Swelling Sunil's back pills PAST [...] Wood Howard MD documented in this encounter [facility] 12-06-2021 Miscellaneous Notes [facility] 05-17-21 Pharmacy and Rx request verified. Please file if appropriate. Thank you Alexandria Stephen LPN documented in this encounter [facility] documented as of this encounter (statuses as of 12/06/2021) [facility] History of Past illness Narrative* Problem Noted Date Resolved Date Morbidly obese 11/18/2015 01/01/2021 Labial abscess 11/18/2015 01/01/2021 S/P hysterectomy with oophorectomy 03/10/2015 01/01/2021 documented as of this encounter (statuses as of 01/05/2022) [facility] History of Past illness Narrative* Problem Noted Date Resolved Date Morbidly obese 11/18/2015 01/01/2021 Labial abscess 11/18/2015 01/01/2021 S/P hysterectomy with oophorectomy 03/10/2015 01/01/2021 documented as of this encounter (statuses as of 01/26/2022) [facility] History of Past illness Narrative* Problem Noted Date Resolved Date Morbidly obese 11/18/2015 01/01/2021 Labial abscess 11/18/2015 01/01/2021 S/P hysterectomy with oophorectomy 03/10/2015 01/01/2021 documented as of this encounter (statuses as of 10/05/2022) [facility] History of Past illness Narrative* Problem Noted Date Resolved Date Morbidly obese 11/18/2015 01/01/2021 Labial abscess 11/18/2015 01/01/2021 S/P hysterectomy with oophorectomy 03/10/2015 01/01/2021 documented as of this encounter (statuses as of 11/14/2022) [facility] History of Past illness Narrative* Problem Noted Date Resolved Date Morbidly obese 11/18/2015 01/01/2021 Labial abscess 11/18/2015 01/01/2021 S/P hysterectomy with oophorectomy 03/10/2015 01/01/2021 documented as of this encounter (statuses as of 11/29/2022) [facility] History of Past illness Narrative* Problem Noted Date Resolved Date Morbidly obese 11/18/2015 01/01/2021 Labial abscess 11/18/2015 01/01/2021 S/P hysterectomy with oophorectomy 03/10/2015 01/01/2021 documented as of this encounter (statuses as of 11/30/2022) [facility] History of Past illness Narrative* Problem Noted Date Resolved Date Morbidly obese 11/18/2015 01/01/2021 Labial abscess 11/18/2015 01/01/2021 S/P hysterectomy with oophorectomy 03/10/2015 01/01/2021 documented as of this encounter (statuses as of 12/23/2022) [facility] History of Past illness Narrative* Problem Noted Date Resolved Date Morbidly obese 11/18/2015 01/01/2021 Labial abscess 11/18/2015 01/01/2021 S/P hysterectomy with oophorectomy 03/10/2015 01/01/2021 documented as of this encounter (statuses as of 12/29/2022) [facility] History of Past illness Narrative* Problem Noted Date Resolved Date Morbidly obese 11/18/2015 01/01/2021 Labial abscess 11/18/2015 01/01/2021 S/P hysterectomy with oophorectomy 03/10/2015 01/01/2021 documented as of this encounter (statuses as of 12/30/2022) [facility] History of Past illness Narrative* Problem Noted Date Resolved Date Morbidly obese 11/18/2015 01/01/2021 Labial abscess 11/18/2015 01/01/2021 S/P hysterectomy with oophorectomy 03/10/2015 01/01/2021 documented as of this encounter (statuses as of 02/28/2023) [facility] History of Past illness Narrative* Problem Noted Date Resolved Date Morbidly obese 11/18/2015 01/01/2021 Labial abscess 11/18/2015 01/01/2021 S/P hysterectomy with oophorectomy 03/10/2015 01/01/2021 documented as of this encounter (statuses as of 03/03/2023) [facility] History of Past illness Narrative* Problem Noted Date Diagnosed Date Resolved Date Morbidly obese 11/18/2015 01/01/2021 Labial abscess 11/18/2015 01/01/2021 S/P hysterectomy with oophorectomy 03/10/2015 01/01/2021 documented as of this encounter (statuses as of 07/04/2023) [facility] History of Past illness Narrative* Problem Noted Date Diagnosed Date Resolved Date Morbidly obese 11/18/2015 01/01/2021 Labial abscess 11/18/2015 01/01/2021 S/P hysterectomy with oophorectomy 03/10/2015 01/01/2021 documented as of this encounter (statuses as of 07/14/2023) [facility] + Plan note No data available for this section [facility] Evaluation note* Diagnosis Chronic idiopathic constipation Unspecified constipation documented in this encounter [facility] note* Diagnosis Gastrointestinal dysmotility- Primary Unspecified functional disorder of stomach documented in this encounter [facility] note* Diagnosis Irritable bowel syndrome with constipation Irritable bowel syndrome documented in this encounter [facility] note* Diagnosis Irritable bowel syndrome with constipation Irritable bowel syndrome documented in this encounter [facility] note* Diagnosis Chronic idiopathic constipation- Primary Unspecified constipation Nausea Nausea alone Gastroparesis documented in this encounter [facility] note* Diagnosis Chronic idiopathic constipation Unspecified constipation documented [facility] Hospital note* Diagnosis Screening for malignant neoplasm of colon- Primary documented in this encounter [facility] note* Diagnosis Gastroparesis documented in this encounter [facility] note* Diagnosis Irritable bowel syndrome with constipation Irritable bowel syndrome [facility] No data available for this section [facility] Reason for referral (narrative)* Diagnostic Procedure Only (Routine) - Closed Specialty Diagnoses / Procedures Referred By Contac t Referred To Contact XR IMAGING Diagnoses Chronic idiopathic constipation Procedures XR ABDOMEN 1V SUPINE RADIOLOGIC EXAM ABDOMEN 1 VIEW Sarai Moss DO [facility] [address] [place] [address] Xr Imaging Referral ID Status Reason Start Date Expiration Date V isits Requested Visits Authorized [id number] Closed Auto-Generate d Referral 11/29/2022 12/29/2023 1 1 [facility] for referral (narrative)* Diagnostic Procedure Only (Routine) - Closed Specialty Diagnoses / Procedures Referred By Contac t Referred To Contact XR IMAGING Diagnoses Chronic idiopathic constipation Procedures XR ABDOMEN 1V SUPINE RADIOLOGIC EXAM ABDOMEN [address] Sarai Moss DO [address] [place] [address] Xr Imaging Referral ID Status Reason Start Date Expiration Date V isits Requested Visits Authorized [id number] Closed Auto-Generate d Referral 11/29/2022 12/29/2023 1 1 [facility] for referral (narrative)* Outpatient Procedure (Routine) - Authorized Specialty Diagnoses / Procedures Referred By Angela moseley Referred To Contact [facility] Diagnoses Screening for malignant neoplasm of colon Procedures COLONOSCOPY SCREENING COLONOSCOPY FLX DX W/COLLJ SPEC WHEN PFRMD Sarai Moss DO [facility] [address] [place] [id number] [facility] [place] [address] Referral ID Status Reason Start Date Expiration Date Visits Requested Visits Authorized [id number] Authorized Auto-Generat ed Referral 12/30/2022 12/31/2023 1 1 [facility] for visit Narrative* Diagnostic Procedure Only (Routine) - Closed Specialty Diagnoses / Procedures Referred By Angela moseley Referred To Contact XR IMAGING Diagnoses Chronic idiopathic constipation Procedures XR ABDOMEN 1V SUPINE RADIOLOGIC EXAM ABDOMEN 1 VIEW Sarai Moss DO [address] [place] [id number] Xr Imaging Referral ID Status Reason Start Date Expiration Date V isits Requested Visits Authorized [id number] Closed Auto-Generate d Referral 11/29/2022 12/29/2023 1 1 [facility] Summary Purpose Family History No Family History Records FoundNo Family History Records FoundNo Family History Records FoundNo Family History Records FoundNo Family History Records FoundNo Family History Records FoundNo Family History Records FoundNo Family History Records Found Advance Directives Documents on File Type Date Recorded Patient Campus Wellness Coordinator Expl anation ACP-Advance Directive ACP-Power of Film Librarian Documents on File Type Date Recorded Patient Campus Wellness Coordinator Expl anation Advance Directive(s) 12/25/2020 4:53 PM Advance Directive(s) 12/05/2017 10:59 AM Discharge Instructions * Attachments The following attachments cannot be sent through Care Everywhere. * Hypokalemia (Indonesian) documented in this encounter Assessments Diagnosis Non-intractable vomiting with nausea, unspecified vomiting type- Primary Hypokalemia Hypopotassemia Additional Source Comments INFORMATION SOURCE (unrecogn ized section and content) DATE CREATED AUTHOR AUTHOR'S ORGANIZ ATION 09/23/2020 [facility] DATE CREATED AUTHOR AUTHOR'S ORGANIZ ATION 01/22/2022 [facility] DATE CREATED AUTHOR AUTHOR'S ORGANIZ ATION 03/11/2022 [facility] ([place]) DATE CREATED AUTHOR AUTHOR'S ORGANIZ ATION 02/10/2023 [facility] DATE CREATED AUTHOR AUTHOR'S ORGANIZ ATION 03/03/2023 [facility] DATE CREATED AUTHOR AUTHOR'S ORGANIZ ATION 05/08/2023 [facility] DATE CREATED AUTHOR AUTHOR'S ORGANIZ ATION 07/05/2023 [facility] Reason for Visit (unrecogniz ed section and content) Reason Comments Refill Request Reason Comments Gastroparesis Reason Comments Patient Update PA IBSRELA Reason Comments Refill Request Ibsrela Reason Comments Follow Up Gastroparesis Reason Comments Medication Preauthorization PA for Gimot i Reason Comments Request Outside Medical Records Ordered Prescriptions (unrec ognized section and content) Care Teams (unrecognized sec tion and content) Agent Based Modeler Relationship Specialty Start Date End Date Jane Mcallister, DO [address] [place] [address] PCP - General Internal Medicine 03/23/20 Agent Based Modeler Relationship Specialty Start Date End Date Jane Mcallister DO [address] [place] [address] PCP - General Internal Medicine 03/23/20 Agent Based Modeler Relationship Specialty Start Date End Date Jane Mcallister DO [address] [place] [address] PCP - General Internal Medicine 03/23/20 Agent Based Modeler Relationship Specialty Start Date End Date Jane Mcallister, DO [address] [place] [address] PCP - General Internal Medicine 03/23/20 Agent Based Modeler Relationship Specialty Start Date End Date Jane Mcallister, DO [address] [place] [address] PCP - General Internal Medicine 03/23/20 Agent Based Modeler Relationship Specialty Start Date End Date Jane Mcallister, DO [address] [place] [address] PCP - General Internal Medicine 03/23/20 Agent Based Modeler Relationship Specialty Start Date End Date Jane Mcallister, DO [address] [place] [address] PCP - General Internal Medicine 03/23/20 Agent Based Modeler Relationship Specialty Start Date End Date WendiJane mera, DO [address] [place] [address] PCP - General Internal Medicine 03/23/20 Agent Based Modeler Relationship Specialty Start Date End Date WendiJane mera, DO [address] [place] [address] PCP - General Internal Medicine 03/23/20 Agent Based Modeler Relationship Specialty Start Date End Date Jane Mcallister MD [address] [place] [address] PCP - General Internal Medicine 03/23/20 Agent Based Modeler Relationship Specialty Start Date End Date Jane Mcallister MD [address] [place] [address] PCP - General Internal Medicine 03/23/20 Source Comments (unrecognize d section and content) In the event this informatio n is protected by the Federal Confidentiality of Alcohol and Drug Abuse Patient Records regulations: The Federal rules restrict any use of the information to criminally investigate or prosecute any alcohol or drug abuse patient.[facility] the event this information is protected by the Federal Confidentiality of Alcohol and Drug Abuse Patient Records regulations: The Federal rules restrict any use of the information to criminally investigate or prosecute any alcohol or drug abuse patient.[facility] the event this information is protected by the Federal Confidentiality of Alcohol and Drug Abuse Patient Records regulations: The Federal rules restrict any use of the information to criminally investigate or prosecute any alcohol or drug abuse patient.[facility] the event this information is protected by the Federal Confidentiality of Alcohol and Drug Abuse Patient Records regulations: The Federal rules restrict any use of the information to criminally investigate or prosecute any alcohol or drug abuse patient.[facility] the event this information is protected by the Federal Confidentiality of Alcohol and Drug Abuse Patient Records regulations: The Federal rules restrict any use of the information to criminally investigate or prosecute any alcohol or drug abuse patient.[facility] the event this information is protected by the Federal Confidentiality of Alcohol and Drug Abuse Patient Records regulations: The Federal rules restrict any use of the information to criminally investigate or prosecute any alcohol or drug abuse patient.[facility] the event this information is protected by the Federal Confidentiality of Alcohol and Drug Abuse Patient Records regulations: The Federal rules restrict any use of the information to criminally investigate or prosecute any alcohol or drug abuse patient.[facility] the event this information is protected by the Federal Confidentiality of Alcohol and Drug Abuse Patient Records regulations: The Federal rules restrict any use of the information to criminally investigate or prosecute any alcohol or drug abuse patient.[facility] the event this information is protected by the Federal Confidentiality of Alcohol and Drug Abuse Patient Records regulations: The Federal rules restrict any use of the information to criminally investigate or prosecute any alcohol or drug abuse patient.[facility] the event this information is protected by the Federal Confidentiality of Alcohol and Drug Abuse Patient Records regulations: The Federal rules restrict any use of the information to criminally investigate or prosecute any alcohol or drug abuse patient.[facility] the event this information is protected by the Federal Confidentiality of Alcohol and Drug Abuse Patient Records regulations: The Federal rules restrict any use of the information to criminally investigate or prosecute any alcohol or drug abuse patient.[facility] the event this information is protected by the Federal Confidentiality of Alcohol and Drug Abuse Patient Records regulations: The Federal rules restrict any use of the information to criminally investigate or prosecute any alcohol or drug abuse patient.[facility] the event this information is protected by the Federal Confidentiality of Alcohol and Drug Abuse Patient Records regulations: The Federal rules restrict any use of the information to criminally investigate or prosecute any alcohol or drug abuse patient.[facility] the event this information is protected by the Federal Confidentiality of Alcohol and Drug Abuse Patient Records regulations: The Federal rules restrict any use of the information to criminally investigate or prosecute any alcohol or drug abuse patient.[facility] Care Team (unrecognized sect ion and content) Personnel Name: JANE MCALLISTER DO Address: Address: [address] [place] [phone] US FOR RECORDS PERTAINING TO PATIENTS WHO [...] BE BASED ON THE PRIMARY CLINICAL RECORDS. [facility]. provides no warranty or guarantee of the accuracy or completeness of information in this document.
--- NOTE | 2023-09-14 10:16 | PCM.PSN.6M ---
PSN 6 Minute Walk Test 6 Minute Walk Test 6 Minute Walk Test: 6 Minute Walk Test PSN:6-Minute Walk Test Start: 09/12/23 13:16 Freq: Status: Active Protocol: RESP.6MINW Document 09/12/23 13:00 [facility] (Rec: 09/12/23 13:20 [facility] Desktop) 6 Minute Walk Test Date Performed 09/12/23 Time Performed 13:00 Height 5 ft 3 in Weight: 225 lb Weight in Pounds 225.[address]: Tiffani Assistive device used: None Pre-test Oxygen Delivery Method Room Air Pulse Ox 95 Pulse Rate (60-100) 94 Dyspnea Tal Scale (0-10) 0 Exertion Tal Scale (6-20) 6 1st minute Pulse Ox 91 Pulse Rate (60-100) 110 H 2nd minute Oxygen Delivery Method Room Air Pulse Ox 92 Pulse Rate (60-100) 113 H 3rd minute Oxygen Delivery Method Room Air Pulse Ox 91 Pulse Rate (60-100) 106 H 4th minute Oxygen Delivery Method Room Air Pulse Ox 91 Pulse Rate (60-100) 117 H 5th minute Oxygen Delivery Method Room Air Pulse Ox 91 Pulse Rate (60-100) 122 H 6th minute Oxygen Delivery Method Room Air Pulse Ox 91 Pulse Rate (60-100) 110 H Dyspnea Tal Scale (0-10) 2 Exertion Tal Scale (6-20) 13 Post-test Oxygen Delivery Method Room Air Pulse Ox 95 Pulse Rate (60-100) 101 H Full Laps Walked 18 Partial Lap, Number of Tiles Walked 24 Total Distance Walked (ft) 1086 Interpretation Interpretation: The patient ambulated 1086 feet over the course of 6 minutes beginning on room air without assistive devices. Pretesting oxygen saturation was noted to be 95% on room air. With ambulation, the brenden oxygen saturation was 91%. There was no significant exertional oxygen desaturation. Recommendations Recommendations: There is no indication for the use of supplemental oxygen at this time.
== END | disposition home or self-care (01) ==
LOC: PSN 12:57
PROVIDERS: PCP Family Medicine; Referring Provider Nurse Practitioner Acute Care; Visit Provider Nurse Practitioner Acute Care
DX: R06.09 Other forms of dyspnea (principal)
CPT/HCPCS: 94618

== ENCOUNTER → 2024-07-29 | Outpatient (CLI) | payer OTHER, MEDICARE, SELFPAY ==
--- NOTE | 2024-07-29 12:56 | CT_ITS ---
STUDY: LOW DOSE CT LUNG CANCER SCREENING REASON FOR EXAM: Female, 54 years old. One pack per day smoker x30 years, current smoker RADIATION DOSAGE (If Supplied By Facility): CTDIvol = ( 3.18 ) mGy, DLP = ( 105.23 ) mGycm TECHNIQUE: No contrast was administered. Low dose technique was utilized (average mAS-38 and kVp 120). 1.25 mm axial source images with a slice interval of 1.25-mm were reconstructed in lung windows. 2.5 mm axial source images with a slice interval of 2.5-mm were reconstructed in lung windows. 5.0 mm axial source images with a slice interval of 5.0-mm were reconstructed in soft tissue windows. COMPARISON: 07/27/2023 NODULES: Lung windows show lungs to be mildly hyperexpanded. Chronic interstitial changes noted in both lung barrera without organized infiltrate or effusion. There is a 2 mm noncalcified nodule along the right minor fissure on axial image 119 unchanged from the previous study. Evidence of chronic bronchitis and scarring in the lower lung barrera. Limited soft tissue windows show normal-appearing thyroid gland. No suspicious adenopathy. There are calcified coronary vessels. Limited cuts of the upper abdomen do not show a suspicious abnormality. Bony structures show degenerative change CT/Low Dose CT Lung Screening IMPRESSION: Lung-RADS category 2 - Continue annual screening with LDCT in 12 months. IMPORTANT NOTES FOR USE: ACR Lung-RADS Version 1.1 Assessment Categories Release Date: 2018 Category: Coded 0-4 bases on nodule(s) with highest degree of suspicion. Negative screen is defined as categories 1 and 2; a positive screen is defined as categories 3 and 4. Category 3 and 4A nodules that are unchanged on interval CT should be coded as category 2, and individuals returned to screening in 12 months. Category 4X: Category 3 or 4 nodules with additional imaging findings that increase the suspicion of lung cancer, such as spiculation, GGN that doubles in size in 1 year, enlarged lymph notes, etc. Category Modifiers: S (significant finding unrelated to lung cancer) Electronically Signed: Enio Amos MD at 11:04 EST ,
== END | disposition home or self-care (01) ==
PROVIDERS: PCP Family Medicine; Referring Provider Nurse Practitioner Acute Care; Visit Provider Nurse Practitioner Acute Care
DX: F17.210 Nicotine dependence, cigarettes, uncomplicated (principal)
CPT/HCPCS: 71271

== ENCOUNTER 2025-03-18 11:31 | Emergency (ER) | payer OTHER, MEDICARE, SELFPAY ==
[2025-03-18 11:31] VITALS: BP 104/60; PULSE 85; RESP 16; TEMP 36.6; O2SAT 90
[2025-03-18 11:51] VITALS: BMI 39.8
--- NOTE | 2025-03-18 11:58 | VDLE_ITS ---
Reason For Study Reason For Study: Left leg pain RIGHT LEFT CFV is compressible, spontaneous, phasic, competent GSV is normal. and demonstrates normal augmentation. CFV is compressible, spontaneous, phasic, competent, Procedure and demonstrates normal augmentation. This is a venous duplex using B-mode, color flow and FV is compressible, spontaneous, phasic, competent spectral Doppler. and demonstrates normal augmentation. Exam performed in department. POP V is compressible, spontaneous, phasic, competent A preliminary report was called and/or faxed to Ana and demonstrates normal augmentation. RN. T/P Trunk is compressible. PTV is compressible. LT PerV is compressible. Nonvascularized structure noted in the left popliteal fossa that mesures 0.42 x 2.62 x 5.93 cm. VL/Venous Duplex US, Unilateral Interpretation Summary Deep veins of the left lower extremity are patent and compressible segmentally. There is no evidence of left lower extremity deep vein thrombosis. Valvular competence appears intact within the p roximal deep venous system on the left . The left great saphenous vein appears patent and compressible segmentally. A no n-vascular, hypoechoic structure is noted in the left popliteal space, measuring 0.42 cm x 2.62 cm x 5.93 cm. This probab ly represents a popliteal cyst. Clinical correlation is advised. The right common femoral vein is patent and compressibl e . Ordering Physician: Johnathan Leslie Referring Physician: Jane Fields Performed By: Cinthya Meneses RVT
--- NOTE | 2025-03-18 12:06 | EX.ED.DYSGE1 ---
HPI History of Present Illness Chief Complaint: Lower Extremity Injury Narrative Narrative: Chief complaint and HPI: Left knee pain. 54-year-old female with past medical history of fibromyalgia, DM2 presents for evaluation of left knee pain. Patient states yesterday evening while standing in the kitchen she felt a sudden pop behind her left knee. States she then developed pain. Pain is worse with movement and weightbearing. Denies any trauma. No recent fluoroquinolones. Denies any numbness/tingling. No history of DVT. No history of Gee's cyst. Review of systems: See HPI Medications: As listed on the chart Allergies: As listed on the chart PFSH: Per chart Vital signs: As listed on the chart. Reviewed. Physical exam: Gen: A&O x3, NAD Head: Normocephalic, atraumatic Eyes: No sclera icterus, conjunctiva clear ENT: Moist mucous membranes CV: Regular rate Resp: Nonlabored respirations Musc: Limited range of motion of the left lower extremity secondary to pain with passive and active range of motion. With movement she endorses pain to the posterior of the knee. No knee instability. No meniscal tenderness. Strength 5 out of 5. Knee is tender to palpation posteriorly and on the patella. Mild swelling of the left knee compared to the right. Compartments soft. Calf and thigh nontender to palpation. Femoral/DP PT pulses +2. Good capillary refill. Sensation intact. No cellulitis or ecchymosis. No deformity. Skin: Warm, dry Neuro: Alert, oriented, grossly intact, sensation intact Psych: Cooperative, appropriate mood and affect [facility] Medical History (Reviewed 08/08/24 @ 15:35 by Silvana Tipton [employer], [employer]) Wears glasses Anxiety Depression Alcohol use Marijuana use ADHD Diabetes Arthritis History of renal disease High cholesterol Migraine headache Blackout Gastroparesis History of diverticulitis History of IBS Gastric reflux Sleep apnea BiPAP (biphasic positive airway pressure) dependence Smoker Shortness of breath on exertion PONV (postoperative nausea and vomiting) History of edema History of echocardiogram History of stress test Cardiology follow-up encounter History of heart attack Hypertension Home Medications ?Medication ?Instructions ?Recorded ?Last Taken ?Type cyclobenzaprine 10 mg tablet 10 mg PO TID muscle relaxer 04/24/23 05/18/23 05:00 History desvenlafaxine succinate 50 mg 50 mg PO DAILY DEPRESSION 04/24/23 07/25/23 History tablet,extended release 24 hr (Pristiq) methylphenidate HCl 20 mg tablet 20 mg PO DAILY ADHD 04/24/23 05/18/23 05:00 History (Ritalin) metoclopramide HCl 10 mg tablet 10 mg PO TID GASTROPARESIS 04/24/23 07/25/23 History nitroglycerin 0.4 mg sublingual 0.4 mg sublingual Q5M PRN chest 04/24/23 Unknown History tablet pain ondansetron HCl 8 mg tablet 8 mg PO TID 04/24/23 05/18/23 05:00 History pantoprazole 40 mg tablet,delayed 40 mg PO QHS GERD 04/24/23 05/17/23 20:00 History release pregabalin 300 mg capsule (Lyrica) 300 mg PO BID FIBROMYALGIA 04/24/23 07/25/23 History rosuvastatin 40 mg tablet (Crestor) 40 mg PO DAILY HLD 04/24/23 07/25/23 History tenapanor 50 mg tablet (Ibsrela) 50 mg PO BID IBSC 04/24/23 07/25/23 History albuterol sulfate 90 mcg/actuation 2 puff inhalation Q4H 07/24/23 Unknown History aerosol inhaler lisinopril 5 mg tablet 2.5 mg (1/2 x 5 mg) PO QHS HTN 30 07/30/23 05/17/23 20:00 Rx days #0 tabs aspirin 81 mg tablet,delayed 81 mg PO DAILY 11/09/23 Unknown History release lorazepam 1 mg tablet 1 mg PO BID PRN anxiety 11/09/23 Unknown History metoprolol succinate 25 mg 25 mg PO DAILY 11/09/23 Unknown History tablet,extended release 24 hr dapagliflozin propanediol 10 mg 10 mg PO QDAY 05/15/24 Unknown History tablet (Farxiga) oxycodone-acetaminophen 5 mg-325 1 tab PO Q6H PRN pain 2 days #8 03/18/25 Unknown Rx mg tablet (Percocet) tabs Allergy/AdvReac Type Severity Reaction Status Date / Time magnesium salicylate Allergy Swelling Verified 11/09/23 09:52 Surgical History (Reviewed 08/08/24 @ 15:35 by Silvana Tipton [employer], [employer]) History of lumbar fusion History of coronary artery stent placement History of colonoscopy History of gastric surgery History of umbilical hernia repair History of History of cholecystectomy History of hysterectomy Social History (Updated 03/18/25 @ 11:50 by Ana Maxwell) household members: spouse Smoking Status: Current every day smoker tobacco type: cigarettes Tobacco: How many years used: 30 second hand exposure: Yes EXAM Physical Exam Const Vital Signs: 03/18/25 11:31 03/18/25 13:49 03/18/25 14:48 Temperature 97.8 F 97.9 F Temperature Source Temporal Pulse Rate 85 80 88 Respiratory Rate 16 16 16 Blood Pressure 104/60 117/70 104/74 Blood Pressure Mean 74 85 84 Pulse Ox 90 95 94 Oxygen Delivery Method Room Air Room Air MDM MDM MDM Narrative Medical decision making narrative: 54-year-old female with past medical history of fibromyalgia, DM2 presents for evaluation of left knee pain. Patient states yesterday evening while standing in the kitchen she felt a sudden pop behind her left knee. States she then developed pain. See physical exam findings. Differential diagnosis includes but is not limited to ruptured Gee's cyst, hematoma, muscle tear, DVT, osteoarthritis, suspect less likely fracture. IM morphine ordered with Zofran. X-ray of the knee ordered with DVT study. X-ray of the knee was personally reviewed and interpreted by me, ED physician. No fracture or dislocation. Radiology in agreement. Mild degenerative changes of the femoral patella joint space. Venous duplex ultrasound negative for DVT. There is a nonvascularized structure noted in the left popliteal fossa that measures 0.42 x 2.62 x 5.93 cm. The images have yet to be uploaded on the computer therefore I am not able to personally review these. Suspect that patient may have a Bakers cysts. On reevaluation, patient's pain has improved. Virgilio wrap placed on the left knee for compression. Crutches as needed for ambulation. Patient was educated on Motrin mostly for pain control in addition to Tylenol and Percocet for severe pain. She confirmed understanding of the plan. Follow-up with orthopedics. Given that I could not personally review the imaging, I did reach out to orthopedic surgeon Dr. Kelsey. Agrees with the plan. No further imaging needed at this time. Impression: 1. Left knee pain 2. Left popliteal fossa nonvascular structure, suspect Gee's cyst Radiography Diagnostic Testing: Clinical Impression(s) from Imaging Studies Knee X-Ray 03/18/25 12:40 IMPRESSION: Degenerative changes as above. Reading Location: [facility] Discharge Plan Triage Chief Complaint: Lower Extremity Injury ED Provider: Johnathan Leslie Dx/Rx/DC Orders Clinical Impression: Knee pain, left Instructions: ED Knee Effusion, ED RICE Prescriptions: New oxycodone-acetaminophen [Percocet] 5-325 mg tablet 1 tab PO Q6H PRN (Reason: pain) 2 Days Qty: 8 0RF No Action metoprolol succinate 25 mg tablet extended release 24 hr 25 mg PO DAILY aspirin 81 mg tablet,delayed release (DR/EC) 81 mg PO DAILY Patient Comments: TAKE 1 TABLET BY MOUTH EVERY DAY lorazepam 1 mg tablet 1 mg PO BID PRN (Reason: anxiety) Patient Comments: TAKE 1 TABLET BY MOUTH TWICE A DAY dapagliflozin propanediol [Farxiga] 10 mg tablet 10 mg PO QDAY Ibsrela 50 mg tablet 50 mg PO BID Rx Instructions: must administer immediately before first meal of day/breakfast and dinner metoclopramide HCl 10 mg tablet 10 mg PO TID Patient Comments: TAKE 1 TABLET BY MOUTH THREE TIMES A DAY pantoprazole 40 mg tablet,delayed release (DR/EC) 40 mg PO QHS Patient Comments: TAKE 1 TABLET BY MOUTH EVERY DAY ondansetron HCl 8 mg tablet 8 mg PO TID Patient Comments: TAKE 1 TABLET BY MOUTH EVERY 8 HOURS NEEDED FOR NAUSEA AND VOMITING desvenlafaxine succinate [Pristiq] 50 mg tablet extended release 24 hr 50 mg PO DAILY cyclobenzaprine 10 mg tablet 10 mg PO TID pregabalin [Lyrica] 300 mg capsule 300 mg PO BID methylphenidate HCl [Ritalin] 20 mg tablet 20 mg PO DAILY rosuvastatin [Crestor] 40 mg tablet 40 mg PO DAILY nitroglycerin 0.4 mg tablet, sublingual 0.4 mg sublingual Q5M PRN (Reason: chest pain) Patient Comments: PLACE 1 TABLET UNDER TONGUE EVERY 5 MINS, UP TO 3 DOSES NEEDED FOR CHEST PAIN lisinopril 5 mg tablet 2.5 mg PO QHS 30 Days Qty: 0 0RF Patient Comments: TAKE ONE-HALF TABLET BY MOUTH IN THE MORNING Rx Instructions: Hold for SBP less than 130 mmHg albuterol sulfate 90 mcg/actuation HFA aerosol inhaler 2 puff INHALATION Q4H Patient Comments: INHALE 2 PUFFS EVERY 4 HOURS NEEDED FOR SHORTNESS OF BREATH Primary Care Provider: Jane Flores Referrals: Eric Kelsey DO [Med Staff - Active Staff] - 3-5 Days Jane Flores DO [Primary Care Provider] - 3-5 Days Activity Restrictions/Additional Instructions: Your ultrasound shows a nonvascular structure noted in the left popliteal fossa that measures 0.42 x 2.62 x 5.83 cm. Suspect Gee's cyst. Follow-up with orthopedic surgeon. Return back to the ED if symptoms change or worsen. Crutches as needed for ambulation. Recommend Motrin and Tylenol. Virgilio bandage for compression swelling. Print Language: Mosotho Disposition Disposition: Home, Self Care Discharge Date/Time: 03/18/25 14:49
--- NOTE | 2025-03-18 12:40 | RAD_ITS ---
EXAM: XR Left Knee Complete, 4 or More Views CLINICAL INDICATION: PAIN TECHNIQUE: Four or more views of the left knee. COMPARISON: No relevant prior studies available. FINDINGS: BONES/JOINTS: Mild degenerative changes of the femoropatellar joint space. No acute fracture. No dislocation. SOFT TISSUES: Soft tissue swelling. RAD/Knee 4 or More Views IMPRESSION: Degenerative changes as above. Reading [facility]
[2025-03-18 13:49] VITALS: BP 117/70; PULSE 80; RESP 16; O2SAT 95
[2025-03-18 14:48] VITALS: BP 104/74; PULSE 88; RESP 16; TEMP 36.6; O2SAT 94
== END 2025-03-18 14:49 | disposition home or self-care (01) ==
PROVIDERS: Emergency Provider Surgery; PCP Family Medicine; Visit Provider Surgery
DX: M25.562 Pain in left knee (principal); E11.43 Type 2 diabetes mellitus with diabetic autonomic (poly)neuropathy; F17.210 Nicotine dependence, cigarettes, uncomplicated; E78.00 Pure hypercholesterolemia, unspecified; I10 Essential (primary) hypertension; M79.7 Fibromyalgia; K31.84 Gastroparesis
CPT/HCPCS: 73564; 93971; 96372; 99283

== ENCOUNTER 2025-04-30 15:55 | Emergency (ER) | payer OTHER, MEDICARE, SELFPAY ==
[2025-04-30 15:57] VITALS: BP 133/75; PULSE 90; RESP 16; TEMP 36.7; O2SAT 89; BMI 39.8
--- NOTE | 2025-04-30 16:11 | EDS_ITS ---
HPI History of Present Illness Chief Complaint: Chest Pain Informant: patient and family Narrative Narrative: Left-sided chest pain for the last 2 days. Worse with cough and arm movement. She has a smoker's cough. No fevers. Patient with history of coronary disease maker for age of 48. Father had a heart attack 47. We started smoking afterwards. Hypertension diabetes hyperlipidemia. No recent travels or thrombolysis for no history PE DVT. Start aspirin therapy. No other blood thinners. Prior Similar Symptoms: No Recent Illness/Hospitalization: No CVD Risk Factors: Positive for Hypertension, Diabetes, Hypercholesterolemia, Family History 1' </=55 and Smoking PE Risk Factors: Negative for Recent Travel/Surgery, Recent Immobilization or Prior DVT or PE [facility] Medical History Wears glasses Anxiety Depression Alcohol use Marijuana use ADHD Diabetes Arthritis History of renal disease High cholesterol Migraine headache Blackout Gastroparesis History of diverticulitis History of IBS Gastric reflux Sleep apnea BiPAP (biphasic positive airway pressure) dependence Smoker Shortness of breath on exertion PONV (postoperative nausea and vomiting) History of edema History of echocardiogram History of stress test Cardiology follow-up encounter History of heart attack Hypertension Home Medications ?Medication ?Instructions ?Recorded ?Last Taken ?Type cyclobenzaprine 10 mg tablet 10 mg PO TID muscle relax er 04/24/23 05/18/23 05:00 History desvenlafaxine succinate 50 mg 50 mg PO DAILY DEPRESSI ON 04/24/23 07/25/23 History tablet,extended release 24 hr (Pristiq) metoclopramide HCl 10 mg tablet 10 mg PO TID GASTROPAR ESIS 04/24/23 07/25/23 History nitroglycerin 0.4 mg sublingual 0.4 mg sublingual Q5M PRN chest 04/24/23 Unknown History tablet pain ondansetron HCl 8 mg tablet 8 mg PO TID 04/24/2305/18 05:00 History pantoprazole 40 mg tablet,delayed 40 mg PO QHS GERD 05/17/23 20:00 History release pregabalin 300 mg capsule (Lyrica) 300 mg PO BID FIBRO MYALGIA 04/24/23 07/25/23 History rosuvastatin 40 mg tablet (Crestor) 40 mg PO DAILY HLD 04/24/23 07/25/23 History tenapanor 50 mg tablet (Ibsrela) 50 mg PO BID IBSC 07/25/23 History albuterol sulfate 90 mcg/actuation 2 puff inhalation Q 4H 07/24/23 Unknown History aerosol inhaler lisinopril 5 mg tablet 2.5 mg (1/2 x 5 mg) PO QHS H TN 30 07/30/23 05/17/23 20:00 Rx days #0 tabs aspirin 81 mg tablet,delayed 81 mg PO DAILY 11/09/23 U nknown History release lorazepam 1 mg tablet 1 mg PO BID PRN anxiety 03/27 Unknown History metoprolol succinate 25 mg 25 mg PO DAILY 11/09/23 Unk nown History tablet,extended release 24 hr dapagliflozin propanediol 10 mg 10 mg PO QDAY 05/15/24 Unknown History tablet (Farxiga) fluticasone fur. 100 mcg-umeclid 1 inh inhalation Q24H 03/21/25 Unknown History 62.5 mcg-vilant 25 mcg inhalat.powder (Trelegy Ellipta) nabumetone 500 mg tablet 500 mg PO BID #60 tabs 04/15 Unknown Rx Allergy/AdvReac Type Severity Reaction Status Date / Time magnesium salicylate Allergy Swelling Verified 04/15/25 09:44 Surgical History History of lumbar fusion History of coronary artery stent placement History of colonoscopy History of gastric surgery History of umbilical hernia repair History of History of cholecystectomy History of hysterectomy Social History
--- NOTE | 2025-04-30 16:11 | ED.VIS.CHEST ---
HPI History of Present Illness Chief Complaint: Chest Pain Informant: patient and family Narrative Narrative: Left-sided chest pain for the last 2 days. Worse with cough and arm movement. She has a smoker's cough. No fevers. Patient with history of coronary disease maker for age of 48. Father had a heart attack 47. We started smoking afterwards. Hypertension diabetes hyperlipidemia. No recent travels or thrombolysis for no history PE DVT. Start aspirin therapy. No other blood thinners. Prior Similar Symptoms: No Recent Illness/Hospitalization: No CVD Risk Factors: Positive for Hypertension, Diabetes, Hypercholesterolemia, Family History 1' </=55 and Smoking PE Risk Factors: Negative for Recent Travel/Surgery, Recent Immobilization or Prior DVT or PE [facility] Medical History Wears glasses Anxiety Depression Alcohol use Marijuana use ADHD Diabetes Arthritis History of renal disease High cholesterol Migraine headache Blackout Gastroparesis History of diverticulitis History of IBS Gastric reflux Sleep apnea BiPAP (biphasic positive airway pressure) dependence Smoker Shortness of breath on exertion PONV (postoperative nausea and vomiting) History of edema History of echocardiogram History of stress test Cardiology follow-up encounter History of heart attack Hypertension Home Medications ?Medication ?Instructions ?Recorded ?Last Taken ?Type cyclobenzaprine 10 mg tablet 10 mg PO TID muscle relaxer 04/24/23 05/18/23 05:00 History desvenlafaxine succinate 50 mg 50 mg PO DAILY DEPRESSION 04/24/23 07/25/23 History tablet,extended release 24 hr (Pristiq) metoclopramide HCl 10 mg tablet 10 mg PO TID GASTROPARESIS 04/24/23 07/25/23 History nitroglycerin 0.4 mg sublingual 0.4 mg sublingual Q5M PRN chest 04/24/23 Unknown History tablet pain ondansetron HCl 8 mg tablet 8 mg PO TID 04/24/23 05/18/23 05:00 History pantoprazole 40 mg tablet,delayed 40 mg PO QHS GERD 04/24/23 05/17/23 20:00 History release pregabalin 300 mg capsule (Lyrica) 300 mg PO BID FIBROMYALGIA 04/24/23 07/25/23 History rosuvastatin 40 mg tablet (Crestor) 40 mg PO DAILY HLD 04/24/23 07/25/23 History tenapanor 50 mg tablet (Ibsrela) 50 mg PO BID IBSC 04/24/23 07/25/23 History albuterol sulfate 90 mcg/actuation 2 puff inhalation Q4H 07/24/23 Unknown History aerosol inhaler lisinopril 5 mg tablet 2.5 mg (1/2 x 5 mg) PO QHS HTN 30 07/30/23 05/17/23 20:00 Rx days #0 tabs aspirin 81 mg tablet,delayed 81 mg PO DAILY 11/09/23 Unknown History release lorazepam 1 mg tablet 1 mg PO BID PRN anxiety 11/09/23 Unknown History metoprolol succinate 25 mg 25 mg PO DAILY 11/09/23 Unknown History tablet,extended release 24 hr dapagliflozin propanediol 10 mg 10 mg PO QDAY 05/15/24 Unknown History tablet (Farxiga) fluticasone fur. 100 mcg-umeclid 1 inh inhalation Q24H 03/21/25 Unknown History 62.5 mcg-vilant 25 mcg inhalat.powder (Trelegy Ellipta) nabumetone 500 mg tablet 500 mg PO BID #60 tabs 04/15/25 Unknown Rx Allergy/AdvReac Type Severity Reaction Status Date / Time magnesium salicylate Allergy Swelling Verified 04/15/25 09:44 Surgical History History of lumbar fusion History of coronary artery stent placement History of colonoscopy History of gastric surgery History of umbilical hernia repair History of History of cholecystectomy History of hysterectomy Social History household members: spouse Smoking Status: Current every day smoker tobacco type: cigarettes Tobacco: How many years used: 30 second hand exposure: Yes ROS ROS ED Constitutional Constitutional ED: Denies chills, fever(s) or sweats ENT ENT ED: Denies sore throat Cardiovascular Cardiovascular: Reports chest pain; Denies leg edema, palpitations or racing heartbeat Respiratory/Chest Respiratory/Chest: Reports cough; Denies dyspnea or dyspnea on exertion Gastrointestinal Gastrointestinal: Denies abdominal pain, diarrhea, nausea or vomiting Genitourinary Genitourinary ED: Denies dysuria, hematuria or urinary frequency Musculoskeletal Musculoskeletal: Denies back pain, extremity pain or neck pain Integumentary Denies rash or wounds Neurologic Neurologic: Denies headache(s), paresthesias or weakness EXAM Physical Exam Const Vital Signs: 04/30/25 15:57 04/30/25 16:10 04/30/25 19:00 Temperature 98.0 F Temperature Source Oral Pulse Rate 90 77 Respiratory Rate 16 Blood Pressure 133/75 H 100/66 Blood Pressure Mean 94 77 Pulse Ox 89 94 Oxygen Delivery Method Room Air Nasal Cannula Oxygen Flow Rate (L/min) 1 04/30/25 21:00 04/30/25 22:31 Temperature 98.0 F Temperature Source Pulse Rate 76 78 Respiratory Rate 16 Blood Pressure 96/61 103/60 Blood Pressure Mean 72 74 Pulse Ox 92 93 Oxygen Delivery Method Room Air Oxygen Flow Rate (L/min) Positive well nourished and well developed General Appearance ED: well developed and NAD HEENT Reports moist mucous membranes normocephalic and atraumatic Eyes General Eye ED: Yes normal appearance of both eyes Neck full ROM Chest Wall Chest Narrative: Reproducible tenderness left-sided chest wall there is no rash. Chest: tenderness Resp normal respiratory effort and normal air movement Resp Narrative: Symmetric breath sounds. Effort and Inspection: symmetric chest movement; Negative for respiratory distress Cardio regular rate, regular rhythm and no murmurs Peripheral Pulses: pulses 2+ throughout GI normal to inspection, nondistended, normoactive bowel sounds and non-tender Palpation: Negative for guarding or rebound tenderness present Extremity normal to inspection General Extremety ED: Negative for edema or tenderness General Extremity: Negative for edema Neuro oriented x3 and no sensory deficits noted Sensorium / Orientation: awake and alert Skin no rashes or lesions noted and no wounds MDM MDM MDM Narrative Medical decision making narrative: Interventions / MDM: Differential diagnosis: Costochondritis, COPD Diagnosis considered but do not suspect: ACS however workup negative. Pulmonary embolus however CT negative. My EKG interpretation: Sinus rate of 83, no ST changes. Imaging independently reviewed and interpreted by myself: 2 view chest x-ray: Edema versus pneumonitis. CT angiogram chest: Negative for PE. Interstitial edema noted. External documents reviewed: N/A Test considered but not ordered:N/A ED course: Chest pain see musculoskeletal. She does have cardiac history. Cardiac workup was initiated. Chest x-ray ordered. Troponin negative x 2. Chest x-ray pneumonitis versus mild edema. She has a chronic smoker's cough. Patient in the room on oxygen with balance around 89% for 91%. Will plan on ambulating with pulse ox. 2039: Patient ambulated pulse ox dropped to 88% per nursing. With rest she improves. Send no hypoxia will obtain CTA chest to for further evaluation. CT angiogram chest negative for PE. Monitor showed edema. Concerns for her daughter when she returned from the restroom reported pulse ox was in the 70s. She was 93% during my eval she is ambulated 1 up to 95% per nursing. Reported briefly returning to bed it was 85% went right back up. He does have COPD with tobacco history. I consider admission with the patient however she declined hospitalization. 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 Martinez. I will refer her back to pulmonology. Return precaution discussed with patient. All questions were answered. Re-evaluation: stable Disposition discussed with patient/family/significant other: Patient and daughter Case discussed with consulting clinician: N/A This note was generated with [employer] dictation software. It may contain incorrect words, spelling, and punctuation that were not noted in checking the note before signing. Lab Data Attestation: I reviewed the patient's lab results. Labs: Laboratory Results - last 24 hr 04/30/25 04/30/25 16:28 18:20 WBC 10.0 RBC 5.56 H Hgb 15.5 H Hct 49.1 H MCV 88.3 MCH 27.9 MCHC 31.6 L RDW Std Deviation 61.5 H RDW Coeff of Paolo 19.6 H Plt Count 222 MPV 10.3 Immature Gran % (Auto) 0.200 Neut % (Auto) 56.3 Lymph % (Auto) 31.1 Sheridan % (Auto) 9.8 Eos % (Auto) 1.8 Baso % (Auto) 0.8 Absolute Neuts (auto) 5.6 Absolute Lymphs (auto) 3.12 Nucleated RBC % 0 Sodium 138 Potassium 4.0 Chloride 100 Carbon Dioxide 26.8 Anion Gap 11 BUN 14 Creatinine 0.94 Estim Creat Clear Calc 78.96 Est GFR (MDRD) Non-Af 73 BUN/Creatinine Ratio 14.4 Glucose 189 H Calcium 9.2 Troponin T High Sens < 6 Troponin T Hi Sens 2 Hr < 6 Radiography Diagnostic Testing: Clinical Impression(s) from Imaging Studies Chest X-Ray 04/30/25 16:43 IMPRESSION: Pulmonary findings as above. Reading Location: [facility] Chest CTA 04/30/25 20:50 IMPRESSION: 1. No acute pulmonary arterial emboli identified. 2. Interstitial pulmonary edema and trace pleural effusions. 3. Partially imaged chronic incisional wound with a persistent small nonspecific fluid and gas collection in the midline lower back subcutaneous tissues at the L1-L2 level. Present since 07/27/2023. Reading Location: [facility] Discharge Plan Triage Chief Complaint: Chest Pain ED Provider: Nic Hernandez Dx/Rx/DC Orders Clinical Impression: Chest pain, Costochondritis, COPD (chronic obstructive pulmonary disease) Instructions: COPD Quit Smoking, ED Chest Wall Pain, Costochondritis Prescriptions: No Action metoprolol succinate 25 mg tablet extended release 24 hr 25 mg PO DAILY aspirin 81 mg tablet,delayed release (DR/EC) 81 mg PO DAILY Patient Comments: TAKE 1 TABLET BY MOUTH EVERY DAY lorazepam 1 mg tablet 1 mg PO BID PRN (Reason: anxiety) Patient Comments: TAKE 1 TABLET BY MOUTH TWICE A DAY dapagliflozin propanediol [Farxiga] 10 mg tablet 10 mg PO QDAY Trelegy Ellipta 100-62.5-25 mcg blister with device 1 inh inhalation Q24H nabumetone 500 mg tablet 500 mg PO BID Qty: 60 0RF Rx Instructions: Do not take with other anti-inflammatory medications Take for 7 days with food, then may decrease to prn pain, swelling Ibsrela 50 mg tablet 50 mg PO BID Rx Instructions: must administer immediately before first meal of day/breakfast and dinner metoclopramide HCl 10 mg tablet 10 mg PO TID Patient Comments: TAKE 1 TABLET BY MOUTH THREE TIMES A DAY pantoprazole 40 mg tablet,delayed release (DR/EC) 40 mg PO QHS Patient Comments: TAKE 1 TABLET BY MOUTH EVERY DAY ondansetron HCl 8 mg tablet 8 mg PO TID Patient Comments: TAKE 1 TABLET BY MOUTH EVERY 8 HOURS NEEDED FOR NAUSEA AND VOMITING desvenlafaxine succinate [Pristiq] 50 mg tablet extended release 24 hr 50 mg PO DAILY cyclobenzaprine 10 mg tablet 10 mg PO TID pregabalin [Lyrica] 300 mg capsule 300 mg PO BID rosuvastatin [Crestor] 40 mg tablet 40 mg PO DAILY nitroglycerin 0.4 mg tablet, sublingual 0.4 mg sublingual Q5M PRN (Reason: chest pain) Patient Comments: PLACE 1 TABLET UNDER TONGUE EVERY 5 MINS, UP TO 3 DOSES NEEDED FOR CHEST PAIN lisinopril 5 mg tablet 2.5 mg PO QHS 30 Days Qty: 0 0RF Patient Comments: TAKE ONE-HALF TABLET BY MOUTH IN THE MORNING Rx Instructions: Hold for SBP less than 130 mmHg albuterol sulfate 90 mcg/actuation HFA aerosol inhaler 2 puff INHALATION Q4H Patient Comments: INHALE 2 PUFFS EVERY 4 HOURS NEEDED FOR SHORTNESS OF BREATH Primary Care Provider: Jane Flores Referrals: Joshua Mario DO [Med Staff - Active Staff] - 1-2 Weeks Jane Flores DO [Primary Care Provider] - Activity Restrictions/Additional Instructions: Cardiac workup negative. CT angio chest negative for PE. History of COPD sleep apnea. Get reestablished with pulmonology. Regarding worsening symptoms, return to the ED for reevaluation. Print Language: Polish Disposition Disposition: Home, Self Care Discharge Date/Time: 04/30/25 22:33
--- NOTE | 2025-04-30 16:43 | RAD_ITS ---
PROCEDURE: CHEST PA AND LATERAL 04/30/2025 REASON FOR EXAM: CHEST PAIN TECHNIQUE: CHEST PA AND LATERAL FINDINGS: The heart is enlarged. Faint reticular opacities throughout the lungs which may represent mild edema or pneumonitis. No acute osseous abnormality. RAD/Chest PA and Lateral IMPRESSION: Pulmonary findings as above. Reading Location: [id number]
[2025-04-30 16:52] LABS: Hematocrit 49.1 % (37-47); Hemoglobin 15.5 g/dL (12.0-15.0); Immature Granulocytes Count 0.020 X10^3/uL (0.0-0.0); Mean Corp Hgb Conc 31.6 g/dL (32-36); Mean Corpuscular Volume 88.3 fL (81-99); Mean Platelet Vol. 10.3 fl (6.2-12.0); NRBC Flagged by Analyzer 0 % (0-5); Platelet Count 222 K/mm3 (150-450); RBC Distribution Width CV 19.6 % (11.6-14.6); RBC Distribution Width SD 61.5 fl (35.1-43.9); Red Blood Count 5.56 M/mm3 (4.2-5.4); White Blood Count 10.0 K/mm3 (4.4-11.0)
[2025-04-30 17:23] LABS: Anion Gap 11 (5-15); BUN 14 mg/dL (4-19); BUN/Creat Ratio 14.4 RATIO (10-20); Calcium,Total 9.2 mg/dL (7.6-11.0); Carbon Dioxide 26.8 mmol/L (21.0-32.0); Chloride 100 mmol/L (98-108); Estimated Creatinine Clearance 78.96 ml/min (50-250); Glucose 189 mg/dL (70-99); Potassium 4.0 mmol/L (3.3-5.1); Troponin T High Sensitivity < 6 ng/L (<=14)
[2025-04-30 18:45] LABS: Troponin T High Sens 2 HR < 6 ng/L (<=14)
[2025-04-30 19:00] VITALS: BP 100/66; PULSE 77; O2SAT 94
--- NOTE | 2025-04-30 19:58 | ED.RN ---
This RN went into room to ambulate Pt with pulse ox per MD orders. Pt became upset stating that she is only here for the chest pain and does not want to ambulate.
[2025-04-30 20:41] VITALS: O2SAT 95
--- NOTE | 2025-04-30 20:50 | CT_ITS ---
PROCEDURE: CTA CHEST W/WO CONTRAST 04/30/2025 REASON FOR EXAM: Hypoxia, chest pain x2 days, smoking history. TECHNIQUE: CTA CHEST W/WO CONTRAST Multiplanar Sagittal and Coronal images were obtained. 3D post processing was performed. CONTRAST: Isovue 370 VOLUME: 99 mL One or more dose reduction techniques were used (e.g., Automated exposure control, adjustment of the mA and/or kV according to patient size, use of iterative reconstruction technique). RADIATION DOSE SUMMARY: DLP: 558.29 mGycm COMPARISON: CT chest exams dated 07/29/2024, 07/27/2023. FINDINGS: PULMONARY VESSELS: No filling defects suspicious for pulmonary arterial emboli identified. Normal caliber of the central pulmonary vessels. No specific evidence of right heart strain. LUNGS/PLEURA: Mild interstitial pulmonary edema, and trace pleural effusions slightly greater on the left, with adjacent passive and scattered bibasilar dependent atelectasis. No confluence airspace consolidation. Minimal centrilobular emphysema. The central airways are patent. MEDIASTINUM: Unremarkable. No mass or significant lymphadenopathy. HEART: Normal in size. No pericardial effusion. Mild coronary artery calcifications. THORACIC AORTA: Normal in course and caliber with mild atherosclerotic disease. UPPER ABDOMEN: No significant abnormality. MUSCULOSKELETAL: Mild degenerative changes of the spine, with prominent degenerative Schmorl's node defect in the superior endplate of T10. There is a partially imaged incisional wound in the midline lower back soft tissues with a persistent small nonspecific fluid and gas collection. CT/CTA Chest W/WO Contrast IMPRESSION: 1. No acute pulmonary arterial emboli identified. 2. Interstitial pulmonary edema and trace pleural effusions. 3. Partially imaged chronic incisional wound with a persistent small nonspecifi c fluid and gas collection in the midline lower back subcutaneous tissues at the L1-L2 level. Present since 07/27/2023. Reading Location: [id number]
[2025-04-30 21:00] VITALS: BP 96/61; PULSE 76; O2SAT 92
[2025-04-30 22:31] VITALS: BP 103/60; PULSE 78; RESP 16; TEMP 36.7; O2SAT 93
== END 2025-04-30 22:33 | disposition home or self-care (01) ==
PROVIDERS: Emergency Provider Emergency Medicine; PCP Family Medicine; Visit Provider Emergency Medicine
DX: R07.9 Chest pain, unspecified (principal); J44.9 Chronic obstructive pulmonary disease, unspecified; E11.43 Type 2 diabetes mellitus with diabetic autonomic (poly)neuropathy; E78.00 Pure hypercholesterolemia, unspecified; M94.0 Chondrocostal junction syndrome [Tietze]; F17.210 Nicotine dependence, cigarettes, uncomplicated; I10 Essential (primary) hypertension; K31.84 Gastroparesis; K21.9 Gastro-esophageal reflux disease without esophagitis
CPT/HCPCS: 71046; 71275; 80048; 84484; 85025; 93005; 99284; Q9967; A4216

== ENCOUNTER → 2025-06-02 | Outpatient (CLI) | payer OTHER, MEDICARE, SELFPAY ==
--- OUTSIDE RECORDS SUMMARY | 2024-07-06 19:20 | XMS RPT_ITS ---
Author Name Auto Generated Organization OHIP Care Team Providers Care Folder Hand Name Role Phone DR THELMA MCALLISTER DO Primary Care Kasi HIGGINS MD, [facility] Attending Unavailable PROBLEMS No Problem Records Found PROCEDURES No Procedure Records Found RESULTS CNPN Observed: 05/28/2025 12:00 AM Status: COMPLETED Source: [facility] [place] Telephone (GASTSP) JAYDEN JACOBSON ([id number]) 1970 F Date Time Provider Department 05/28/25 SARAI MOSS [facility] During your visit today, we recorded the following information about you: iKmberlee Baird 05/28/2025 10:40 AM Signed Requesting follow [...] mellitus without complication, *11/18/2015 BMI 40.0-44.9, adult ([facility]) [Z68.41] 11/18/2015 Morbidly obese (HCC) [E66.01] 11/18/2015 01/01/2021 Labial abscess [N76.4] 11/18/2015 01/01/2021 Anxiety state [F41.1] 11/14/2017 BMI 39.0-39.9,adult [Z68.39] 03/10/2015 Mixed anxiety depressive disorder [F41.8] 11/14/2017 Dyspareunia [[id number]] 03/10/2015 Essential hypertension [I10] 04/06/2016 Gastric atony [...] Observed: 01/06/2025 12:00 AM Status: COMPLETED Source: [facility] Telephone (GASTSP) JAYDEN JACOBSON ([id number]) 1970 F Date Time Provider Department 01/06/25 SARAI MOSS [facility] During your visit today, we recorded the following information about you: Jolie Springer RN 01/06/2025 1:34 PM Signed PA for Ibsrela renewal initiated electronically through [facility]. Awaiting response [facility] ID# [id number] Maria Alejandra Apodaca RN 01/07/2025 12:01 PM [...] RN 01/06/2025 1:34 PM >> JOLIE SPRINGER [facility] January 06, 2025 1:34 PM PA for Ibsrela renewal initiated electronically through [facility]. Awaiting response [facility] ID# [id number] >> Maria Alejandra Apodaca RN 01/07/2025 12:01 PM >> MARIA ALEJANDRA APODACA [facility] January 07, 2025 12:01 PM APPROVAL for [...] Mixed anxiety depressive disorder [F41.8] 11/14/2017 Dyspareunia [[id number]] 03/10/2015 Essential hypertension [I10] 04/06/2016 Gastric atony [...] ADMITTING ENCOUNTER CLASS LOC ATION SOURCE 07/06/2024 [id number] Ambulatory ABuilding:[facility] MAIN PAYERS ENCOUNTER GUARANTOR PAYER SUBSCRIBER SOURCE 07/06/2024 JAYDEN [place]LAOVER[place]OB: [place] [address]~ARUN [email or web address]STITUTEel: () Primary Insurance:AETNA INSCOPolicy Number: [id number] Date:[id number] Name:CPO LOOMIS [id number] [place] [address]LW: SANGEETA VILLELAOVERDOB: [id number] [place] [address]Uuj: (HP) () [facility]
== END | disposition home or self-care (01) ==
PROVIDERS: PCP Family Medicine; Referring Provider Nurse Practitioner Acute Care; Visit Provider Nurse Practitioner Acute Care
DX: R06.09 Other forms of dyspnea (principal); R09.02 Hypoxemia
CPT/HCPCS: 94060; 94726; 94729; 94762

== ENCOUNTER → 2025-06-03 | Outpatient (CLI) | payer OTHER, MEDICARE, SELFPAY ==
--- OUTSIDE RECORDS SUMMARY | 2024-07-06 19:20 | XMS RPT_ITS ---
Author Name Auto Generated Organization OHIP Care Team Providers Care Ice Cream Shop Associate Name Role Phone DR THELMA MCALLISTER DO Primary Care Kasi HIGGINS MD, [facility] Attending Unavailable PROBLEMS No Problem Records Found PROCEDURES No Procedure Records Found RESULTS CNPN Observed: 05/28/2025 12:00 AM Status: COMPLETED Source: [facility] [place] Telephone (GAST[facility]) JAYDEN JACOBSON ([id number]) 1970 F Date Time Provider Department 05/28/25 SARAI MOSS [facility] During your visit today, we recorded the following information about you: Kimberlee Baird 05/28/2025 10:40 AM Signed Requesting follow up appointment with Yasmine Mancilla 05/28/2025 11:22 AM Signed Pt scheduled Allergies As of Date: 05/28/2025 Noted Allergy Reaction MAGNESIUM SALICYLATE 10/27/2015 7 - Swelling OTHER OMEGA-3S 02/04/2015 4 - Hives 2 - Rash 7 - Swelling Comments: Sunil's back pills Date Reviewed: 03/06/2024 Reviewed by: Sarai Moss DO - Fully Assessed Reason for Visit: Appointment [[id number]] Prescriptions as of 05/28/2025 - IBSRELA 50 mg tablet TAKE 1 TABLET BY MOUTH TWICE A DAY - metoclopramide HCl (REGLAN) 10 mg tablet TAKE 1 TABLET BY MOUTH THREE TIMES A DAY - pantoprazole DR (PROTONIX) 40 mg tablet TAKE 1 TABLET BY MOUTH EVERY DAY - ondansetron (ZOFRAN) 8 mg tablet Take 1 tablet by mouth every 8 hours as needed for nausea/vomiting. - LORazepam (ATIVAN) 1 mg tablet Take 1 mg by mouth every 6 hours as needed. - cyclobenzaprine (FLEXERIL) 10 mg tablet Take by mouth three times daily. - aspirin 81 mg chewable tablet Take 81 mg by mouth once daily. - lisinopril (ZESTRIL, PRINIVIL) 5 mg tablet Take 2.5 mg by mouth once daily. - nitroglycerin sublingual (NITROQUICK) 0.4 mg SL tablet Take by mouth as needed. - rosuvastatin (CRESTOR) 40 mg tablet Take 40 mg by mouth once daily. 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] 11/14/2017 Gastroesophageal reflux disease [K21.9] 11/14/2017 Hyperlipidemia [E78.5] 11/14/2017 Essential (primary) hypertension [I10] 11/14/2017 Migraine with aura [G43.109] 03/10/2015 S/P hysterectomy with oophorectomy [Z90.710, Z9*03/10/2015 01/01/2021 Trigger finger of right thumb [M65.311] 04/06/2016 Gastroparesis due to secondary diabetes (HCC) [*12/23/2020 Marijuana use [F12.90] 01/01/2021 Tobacco use [Z72.0] 01/01/2021 Arteriosclerosis of coronary artery [I25.10] 01/01/2021 Stage 2 chronic kidney disease [N18.2] 01/01/2021 Obstructive sleep apnea syndrome [G47.33] 01/01/2021 Fibromyalgia [M79.7] 01/01/2021 Gastrointestinal dysmotility [K92.89] 05/05/2021 Malnutrition of moderate degree (HCC) [E44.0] 06/07/2021 Encounter Status:Closed by YASMINE NATH on 05/28/25 TRACEY Observed: 01/06/2025 12:00 AM Status: COMPLETED Source: [facility] Telephone (GASTSP) JAYDEN JACOBSON ([id number]) 1970 F Date Time Provider Department 01/06/25 SARAI MOSS [facility] During your visit today, we recorded the following information about you: Jolie Springer RN 01/06/2025 1:34 PM Signed PA for Ibsrela renewal initiated electronically through [facility]. Awaiting response [facility] ID# [id number] Maria Alejandra Apodaca RN 01/07/2025 12:01 PM Signed APPROVAL for Ibsrela received. Approval period: 01/06/2025-01/06/2026. Patient and pharmacy both aware. Approval letter under scanned documents. Allergies As of Date: 01/06/2025 Noted Allergy Reaction MAGNESIUM SALICYLATE 10/27/2015 7 - Swelling OTHER OMEGA-3S 02/04/2015 4 - Hives 2 - Rash 7 - Swelling Comments: Sunil's back pills Date Reviewed: 03/06/2024 Reviewed by: Sarai Moss DO - Fully Assessed Reason for Visit: Medication Preauthorization [914] Cmt: PA for Ibsrela renewal Prescriptions as of 01/07/2025 - metoclopramide HCl (REGLAN) 10 mg tablet TAKE 1 TABLET BY MOUTH THREE TIMES A DAY - pantoprazole DR (PROTONIX) 40 mg tablet TAKE 1 TABLET BY MOUTH EVERY DAY - IBSRELA 50 mg tablet TAKE 1 TABLET BY MOUTH TWICE A DAY - ondansetron (ZOFRAN) 8 mg tablet Take 1 tablet by mouth every 8 hours as needed for nausea/vomiting. - LORazepam (ATIVAN) 1 mg tablet Take 1 mg by mouth every 6 hours as needed. - cyclobenzaprine (FLEXERIL) 10 mg tablet Take by mouth three times daily. - aspirin 81 mg chewable tablet Take 81 mg by mouth once daily. - lisinopril (ZESTRIL, PRINIVIL) 5 mg tablet Take 2.5 mg by mouth once daily. - nitroglycerin sublingual (NITROQUICK) 0.4 mg SL tablet Take by mouth as needed. - rosuvastatin (CRESTOR) 40 mg tablet Take 40 mg by mouth once daily. Medication notes this encounter IBSRELA 50 MG TABLET >> Jolie Springer RN 01/06/2025 1:34 PM >> JOLIE SPRINGER [facility] January 06, 2025 1:34 PM PA for Ibsrela renewal initiated electronically through [facility]. Awaiting response [facility] ID# [id number] >> Maria Alejandra Apodaca RN 01/07/2025 12:01 PM >> MARIA ALEJANDRA APODACA [facility] January 07, 2025 12:01 PM APPROVAL for Ibsrela received. Approval period: 01/06/2025-01/06/2026. Patient and pharmacy both aware. Approval letter under scanned documents. 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] 11/14/2017 Gastroesophageal reflux disease [K21.9] 11/14/2017 Hyperlipidemia [E78.5] 11/14/2017 Essential (primary) hypertension [I10] 11/14/2017 Migraine with aura [G43.109] 03/10/2015 S/P hysterectomy with oophorectomy [Z90.710, Z9*03/10/2015 01/01/2021 Trigger finger of right thumb [M65.311] 04/06/2016 Gastroparesis due to secondary diabetes (HCC) [*12/23/2020 Marijuana use [F12.90] 01/01/2021 Tobacco use [Z72.0] 01/01/2021 Arteriosclerosis of coronary artery [I25.10] 01/01/2021 Stage 2 chronic kidney disease [N18.2] 01/01/2021 Obstructive sleep apnea syndrome [G47.33] 01/01/2021 Fibromyalgia [M79.7] 01/01/2021 Gastrointestinal dysmotility [K92.89] 05/05/2021 Malnutrition of moderate degree (HCC) [E44.0] 06/07/2021 Encounter Status:Closed by JOLIE SPRINGER on 01/06/25 ALLERGIES No Allergies Records Found ENCOUNTERS ADMIT/DISCHARGE ACCOUNT NUMBER ADMITTING ENCOUNTER CLASS LOC ATION SOURCE 07/06/2024 [id number] Ambulatory ABuilding:[facility] MAIN PAYERS ENCOUNTER GUARANTOR PAYER SUBSCRIBER SOURCE 07/06/2024 J[place]DEN [place]: [place] [address]~[email or web address] CENTERel: () Primary Insurance:AETNA INSCOPolicy Number: [id number] Date:5212-60-26Ralw Name:CPO LOOMIS [id number] [place] [address]TO: SANGEETA VILLELAOVERDOB: [id number] [place] [address]Hwc: (HP) () [facility]
[2025-06-03 12:30] VITALS: PULSE 103; PULSE 107; PULSE 112; PULSE 113; PULSE 114; PULSE 117; PULSE 118; PULSE 99; O2SAT 87; O2SAT 88; O2SAT 91; O2SAT 93; O2SAT 95
--- NOTE | 2025-06-03 12:30 | CPS ---
At 5 minute kyle, pt was 88% on 2lpm, increased to 3lpm but Sat did not change, increased to 4lpm to get Sat into 90's.
--- NOTE | 2025-06-06 11:20 | WT_ITS ---
PSN 6 Minute Walk Test 6 Minute Walk Test 6 Minute Walk Test: 6 Minute Walk Test PSN:6-Minute Walk Test Start: 06/03/25 13:21 Freq: Status: Active Protocol: [id number].[id number] Document 06/03/25 12:30 [facility] (Rec: 06/03/25 13:31 WLB [id number]) 6 Minute Walk Test Date Performed 06/03/25 Time Performed 12:30 Height 5 ft 2 in Weight: 215 lb Weight in Pounds [address]: Silvana Tipton [employer] TECHNICIAN Assistive device None used: Pre-test Oxygen Delivery Room Air Method Pulse Ox (%) 93 Pulse Rate (60-100 99 beats/min) Dyspnea Tal Scale ( 4 0-10) Exertion Tal Scale 8 (6-20) 1st minute Oxygen Delivery Room Air Method Pulse Ox (%) 91 Pulse Rate (60-100 107 H beats/min) Reported Symptoms Increased Work of Breathing 2nd minute Oxygen Delivery Room Air Method Pulse Ox (%) 87 Pulse Rate (60-100 118 H beats/min) Dyspnea Tal Scale ( 7 0-10) Exertion Tal Scale 15 (6-20) Reported Symptoms Increased Work of Breathing 3rd minute Oxygen Flow Rate (L/ 2 min) (L/min) Oxygen Delivery Nasal Cannula Method Pulse Ox (%) 91 Pulse Rate (60-100 114 H beats/min) 4th minute Oxygen Flow Rate (L/ 2 min) (L/min) Oxygen Delivery Nasal Cannula Method Pulse Ox (%) 91 Pulse Rate (60-100 112 H beats/min) 5th minute Oxygen Flow Rate (L/ 3 min) (L/min) Oxygen Delivery Nasal Cannula Method Pulse Ox (%) 88 Pulse Rate (60-100 117 H beats/min) Reported Symptoms Increased Work of Breathing 6th minute Oxygen Flow Rate (L/ 4 min) (L/min) Oxygen Delivery Nasal Cannula Method Pulse Ox (%) 93 Pulse Rate (60-100 113 H beats/min) Post-test Oxygen Flow Rate (L/ 4 min) (L/min) Oxygen Delivery Nasal Cannula Method Pulse Ox (%) 95 Pulse Rate (60-100 103 H beats/min) Dyspnea Tal Scale ( 0 0-10) Exertion Tal Scale 6 (6-20) Full Laps Walked 18 Partial Lap, Number 0 of Tiles Walked Total Distance 1062 Walked (ft) 06/03/25 12:30 (created 06/03/25 13:29) Cardiopulmonary Services by Jenniffer Marino At 5 minute kyle, pt was 88% on 2lpm, increased to 3lpm but Sat did not change, increased to 4lpm to get Sat into 90's. Initialized on 06/03/25 13:29 - END OF NOTE Interpretation Interpretation: The patient ambulated 1062 feet over the course of 6 minutes beginning on room air without assistive devices. Pretesting oxygen saturation was noted to be 93% on room air. With ambulation, the patient desaturated on several occasions, requiring 4 L/min of supplemental oxygen to maintain appropriate saturations. Recommendations Recommendations: 4 L/min of supplemental oxygen should be utilized with exertion.
== END | disposition home or self-care (01) ==
LOC: PSN 12:22
PROVIDERS: PCP Family Medicine; Referring Provider Nurse Practitioner Acute Care; Visit Provider Nurse Practitioner Acute Care
DX: R06.09 Other forms of dyspnea (principal)
CPT/HCPCS: 94618

== ENCOUNTER 2025-06-10 11:30 | Outpatient (RCR) | payer OTHER, MEDICARE, SELFPAY ==
--- NOTE | 2025-05-08 15:17 | HP.PTEVAL ---
Patient's Visit Information Visit Information Visit Information: JAYDEN JACOBSON is a 54 year old F referred to Physical Therapy by LOI Morales with a diagnosis of L KNEE OA AND JT EFFUSION. Date of Evaluation: 05/08/25 Physical Therapist: Fide Farah PT, Cert MDT Visit Plan Frequency: 2x /Week Duration: 4-6 Weeks Plan: *H/O LUMBAR SURGERY AND HEART ATTACK* GAIT TRAINING AND LLE ROM, STRETCHING AND STRENGTHENING TO HELP MEET SET GOALS. PATELLAR MOBILIZATION NEEDED. CP. HEP INST. Subjective Subjective: Work/Leisure: UNEMPLOYEED. LIVES IN 2 STORY HOME WITH PATIENTS BR IN BASEMENT. STEPS UP TO MAIN BATH AND STEPS DOWN TO MAIN BR. LIVES WITH WHOM IS IN GOOD HEALTH. ALSO LIVES WITH DAUGHTER AND GRANDKIDS. Disability: YES - SINCE 2023 FOR gastroparesis and other health issues. Present symptoms: L KNEE PAIN AND SWELLING. C/O MOST PAIN ON INSIDE OF KNEE AND IN THE BACK OF THE KNEE. DENIES NUMBNESS AND TINGLING. Present Since: MARCH 17 2025 Pain Scale: WORST 7/10, LEAST 1/10 Currently: 1/10 Is it getting better, worse or staying the same: GETTING BETTER Commenced as a result of: FELT A POP IN BACK OF KNEE WHILE STANDING CAMPING AND KNEE FELT WEAK/DIFFICULTY WALKING. NEXT DAY HAD SEVERE KNEE PAIN AND COULDN'T PUT PRESSURE ON LLE AT ALL. Symptoms at onset: SEVERE LLE PAIN AND SWELLING Worse: STANDING, WALKING, VACUUMING, HOUSEWORK IN GENERAL. Better: SITTING DOWN AND PROPPING IT UP. Disturbed sleep: YES Previous history/Previous treatment: UNREMARKABLE Treatment this episode: ED VISIT 03/18/25 AND DX WITH BAKERS CYST RUPTURE. L KNEE ASPIRATION 03/21/25 AND 04/15/25. PRESCRIPTION ANTI-INFLAMMATORY. HINGE BRACE 04/15/25 FOR ACTIVITY AND OFF DURING REST AND SLEEP. Gait: TIME AND DISTANCE LIMITED. HARD TO BEND IT WALKING SO WALKS SLOW. NOT USING ANY AD'S CURRENTLY. USED CRUTCHES FOR ABOUT A WK AT FIRST. DENIES ANY FALLS SINCE INJURY. Bowel or Bladder Dysfunction: NO Accidents: NO Unexplained weight loss: NO Imaging: US NEGATIVE FOR BLOOD CLOTS IN ED 03/18/25. 03/18/25 L KNEE X-RAY: FINDINGS: BONES/JOINTS: Mild degenerative changes of the femoropatellar joint space. No acute fracture. No dislocation. SOFT TISSUES: Soft tissue swelling. IMPRESSION: Degenerative changes as above. PMH: Anxiety Depression Alcohol use Marijuana use ADHD Diabetes Arthritis History of renal disease High cholesterol Migraine headache Blackout Gastroparesis History of diverticulitis History of IBS Gastric reflux Sleep apnea BiPAP (biphasic positive airway pressure) dependence Smoker Shortness of breath on exertion PONV (postoperative nausea and vomiting) History of edema History of echocardiogram History of stress test Cardiology follow-up encounter History of heart attack Hypertension History of lumbar fusion History of coronary artery stent placement History of colonoscopy History of gastric surgery History of umbilical hernia repair History of History of cholecystectomy History of hysterectomy Objective Objective: THIS PATIENT AMBULATES INDEP'LY INTO PT WEARING A L HINGE KNEE BRACE AND NOT USING ANY AD'S. SHE HAS DECREASED JUANITO STRIDE LENGTH AND DECREASED L HEEL STRIKE AND TOE OFF PHASES OF GAIT. NO LOB. SHE HAS MODERATE EDEMA OF L KNEE, LOWER LEG AND FOOT COMPARED TO R. PALPATION: PATIENT C/O TENDERNESS WITH LIGHT PALPATION OF L MEDIAL AND DISTAL KNEE IN REGIONS OF MCL ATTACHMENT AND PATELLAR TENDON ALONG WITH TENDERNESS OF POSTERIOR KNEE. Other Observations: PATIENT IS PLEASANT AND COOPERATIVE TO WORK WITH AND A GOOD HISTORIAN. SHE IS INDEP WITH TRANSFERS SIT TO STAND, SIT TO SUPINE AND REVERSE. SHE INDEP'LY DON'S AND DOFF'S L KNEE BRACE. Sensory deficit: L LE LIGHT TOUCH SENSATION IS GROSSLY INTACT. ROM deficit: IN SUPINE L KNEE ROM = 5 - 0 - 65 DEG FLEX WITH A HEEL SLIDE. IN SITTNG L KNEE ROM = 8 - 0 - 95 DEG FLEX WITH LAQ AND HEEL SLIDE. L ANKLE DORSIFLEX TO NEUTRAL. L HIP FLEX TO AT LEAST 90 DEG AND HIP EXT TO NEUTRAL. Motor deficit: L HIP 4-/5, KNEE EXT 3-/5, KNEE FLEX 3-/5, ANKLE DF 3-/5, ANKLE PF 4-/5. R HIP 4/5, KNEE EXT 5/5, ANKLE 5/5. Coco's Sign: Negative LLE. Core strength: Fair TREATMENT: HEP INST: SUPINE GS, QS AND AP'S 2X10, 3 TIMES A DAY. LLE SLR'S 2X5, 3 TIMES A DAY. SEATED HEEL SLIDES 2X10, 3 TIMES A DAY TOLERATED. GAIT TRAINING. PATIENT RESPONDED WELL TO ALL INTERVENTIONS TODAY WITH GOOD TOLERANCE, IMPROVED KNEE ROM, IMPROVED QUAD CONTRACTION AND VERBALIZED GOOD UNDERSTANDING OF INSTRUCTIONS. Balance/Special Test Scores Lower Extremity Functional Score: 25 Goals Goal 1:: DECREASE C/O L KNEE PAIN TO 0-2/10 WITH ALL PLOF ADL'S. Goal Time Frame: 6-8 Weeks Goal 2:: IMPROVE LLE ROM TO 0-0-120 DEG FLEXION. Goal Time Frame: 6-8 Weeks Goal 3:: INCREASE LLE STRENGTH BY AT LEAST ONE FULL MUSCLE GRADE THROUGHOUT. Goal Time Frame: 4-6 Weeks Goal 4:: NORMALIZE GAIT ON LEVEL SURFACES X AT LEAST 1,000 FEET TO IMPROVE COMMUNITY AMBULATION Goal Time Frame: 6-8 Weeks Goal 5:: PATIENT WILL BE ABLE TO ASCEND AND DESCEND STEPS RECIPROCALLY WITH ONE HR WITHOUT LIMITATION. Goal Time Frame: 6-8 Weeks Goal 6:: INDEP HEP Goal Time Frame: 6-8 Weeks Rehabilitation Potential Physical Therapy Diagnosis: LLE PAIN, SWELLING, WEAKNESS AND STIFFNESS LIMITING GAIT AND NORMAL ADL'S. Rehabilitation Potential: Good Anticipated Interventions Patient/Client Instruction: Educate patient on: Condition, Plan of Care and Risk Factors For the Purpose of:: To improve self management Therapeutic Exercise to Include: Strength training, Flexibilty training, Gait and locomotor training, Neuromotor development, In an aquatic setting and Active ROM For the Purpose of:: To decrease pain, To decrease swelling/inflammation, To increase ROM, To improve nutrient delivery to tissue, To improve muscle performance and motor function, To improve ability to perform ADL's, To increase tolerance to activity/condition/position, To improve ability of physical actions for home/community/work/leisure, To improve gait and locomotor functions and To improve self management Manual Therapy Techniques to Include: Mobilization and Soft tissue mobilization Comment: STM TO DECREASE SWELLING AND PATELLAR MOBILIZATION NEEDED. For the Purpose of:: To decrease swelling/inflammation, To increase ROM and To decrease soft tissue restriction Cryotherapy (ice pack, ice massage): Yes For the Purpose of:: To decrease pain and To decrease swelling/inflammation Text: Thank you for the opportunity to evaluate your patient. For Medicare and Medicare HMO plans, please review the plan of care and approve it. It will need to be FAXED BACK to us at [phone] for Medicare purposes. For Medicare only, by signing this I certify the plan of care. Please let me know if there are questions or concerns regarding this plan of care. Physician Signature: Date:
--- NOTE | 2025-06-10 14:29 | HP.PTDCSUM ---
Discharge Summary D/C summary: It has been my pleasure to treat JAYDEN JACOBSON referred by Olivia Witt, ANTONINA-C, with the diagnosis of L KNEE OA AND JT EFFUSION for a total of 6 visit(s). Discharge Date: 06/10/25 Please see the following information for a summary of their discharge status. Subjective Subjective: PATIENT REPORTS HER KNEE IS DOING A LOT BETTER. REPORTS IT ISN'T HURTING IT JUST FEELS TIGHT. SHE STATES SHE IS DOING ALL OF THE EX'S AT HOME AND IS HOPING TO BE DISCHARGED. Pain L knee: Pain Intensity (Out of 10): 0 Overall Improvement % Improvement: 90 Objective Objective/Function: PATIENT WAS SEEN TODAY FOR RE-ASSESSMENT OF PROGRESS TOWARD THE SET PT GOALS AND THE NEED FOR FURTHER PHYSICAL THERAPY VS READINESS FOR DISCHARGE. THIS PATIENT IS MAKING GOOD PROGRESS WITH PT BUT HAS NOT RETURNED TO PLOF YET. UPON EXAM TODAY: L KNEE ROM 0-0-120 DEG KNEE FLEX WITH ERP. STRENGTH: L HIP 5/5, KNEE 4/5. STEPS: ASCENDS AND DESCENDS RECIPROCALLY WITH LIGHT ONE HR WITHOUT DIFFICULTY OR C/O PAIN. INDEP HEP Goals Goal 1:: DECREASE C/O L KNEE PAIN TO 0-2/10 WITH ALL PLOF ADL'S. Goal Progress: Progressing Goal 2:: IMPROVE LLE ROM TO 0-0-120 DEG FLEXION. Goal Progress: Goal Met Goal 3:: INCREASE LLE STRENGTH BY AT LEAST ONE FULL MUSCLE GRADE THROUGHOUT. Goal Progress: Goal Met Goal 4:: NORMALIZE GAIT ON LEVEL SURFACES X AT LEAST 1,000 FEET TO IMPROVE COMMUNITY AMBULATION Goal Progress: Goal Met Goal 5:: PATIENT WILL BE ABLE TO ASCEND AND DESCEND STEPS RECIPROCALLY WITH ONE HR WITHOUT LIMITATION. Goal Progress: Goal Met Goal 6:: INDEP HEP Goal Progress: Goal Met Plan Plan: D/C TO INDEP EX AND PHYSICIAN F/U AT PATIENTS REQUEST. D/C Information d/c sentence: If there are questions or concerns regarding this patient's physical therapy, please feel free to call me at [phone]. Thank you for the referral of this patient. Sincerely, Fide Farah, PT, Cert MDT Balance/Gait/Functional tests Balance/Special Test Scores Lower Extremity Functional Score: 55 Improvement % Improvement: 90
== END 2025-06-10 19:00 | disposition home or self-care (01) ==
LOC: PT 11:30
PROVIDERS: PCP Family Medicine; Referring Provider Nurse Practitioner Family; Visit Provider Nurse Practitioner Family
DX: M17.12 Unilateral primary osteoarthritis, left knee (principal); M25.462 Effusion, left knee
CPT/HCPCS: 97110; 97162; 97530